=== PATIENT | female | born 1945 | race Caucasian/White ===

== ENCOUNTER 2020-05-19 11:41 | Day surgery (SDC) | payer MEDICARE, SELFPAY ==
[2020-05-12 20:43] VITALS: BMI 27.4
--- NOTE | 2020-05-16 09:45 | P.CONAN_ITS ---
Documented by User: Kristen Schmidt 05/16/20 09:46 HPI - Anesthesia Eval Consult details Narrative: 74yo F for Colonoscopy [facility] Past Medical History Medical History (Updated 05/19/20 @ 08:25 by Bisi Bolanos MD) GERD (gastroesophageal reflux disease) History of breast cancer Hyperlipidemia Plantar fasciitis Family History Family History (Updated 05/14/20 @ 07:43 by Akilah Ramirez, RMA, EMPLOYMENT DIRECTOR) Father No problems noted. Mother No problems noted. Brother Pancreatic cancer Brother No problems noted. Brother No problems noted. Son No problems noted. Daughter No problems noted. Surgical History Surgical History History of lumpectomy of right breast History of tonsillectomy Social History Social History Smoking Status: Never smoker Use of substances other than those prescribed or required for medical reasons: No Advance Directives: Yes Advance Directives Information Provided: Yes (daughter) Advance Directives on File: No (will bring in morning of procedure) Advance Directives Date on File: 09/06/19 Meds Allergies Allergy/AdvReac Type Severity Reaction Status Date / Time No Known Allergies Allergy Verified 05/14/20 07:41 Home Medications Medication Instructions Recorded Confirmed Type Vitamin D (with calcium) 2,000 units PO DAILY 05/12/20 05/12/20 History zolpidem 10 mg PO DAILY 05/12/20 05/12/20 History Exam Exam Date and Time: May 16, 2020 0945 Height,Weight and Vital Signs: Height 5 ft 6 in Weight 77.111 kg Pertinent Lab Results Pertinent Lab Results: Laboratory Tests 02/04/20 02/04/20 08:15 08:15 WBC 7.0 Hgb 15.3 Hct 46.1 Plt Count 307 Sodium 139 Potassium 4.3 Chloride 103 BUN 15 Creatinine 0.82 Assessment and Plan Assessment Anesthesia Assessment: Chart Reviewed Documented by User: Marilyn Garcia 05/19/20 12:52 [facility] Past Medical History Medical History (Updated 05/19/20 @ 08:25 by Bisi Bolanos MD) GERD (gastroesophageal reflux disease) History of breast cancer Hyperlipidemia Plantar fasciitis Family History Family History (Updated 05/14/20 @ 07:43 by Akilah Ramirez, RMA, EMPLOYMENT DIRECTOR) Father No problems noted. Mother No problems noted. Brother Pancreatic cancer Brother No problems noted. Brother No problems noted. Son No problems noted. Daughter No problems noted. Family history of problems with anesthesia: No Surgical History Surgical History History of lumpectomy of right breast History of tonsillectomy History of Problems with Anesthesia: No Social History Social History Smoking Status: Never smoker Use of substances other than those prescribed or required for medical reasons: No Advance Directives: Yes Advance Directives Information Provided: Yes (daughter) Advance Directives on File: No (will bring in morning of procedure) Advance Directives Date on File: 09/06/19 Meds Allergies Allergy/AdvReac Type Severity Reaction Status Date / Time No Known Allergies Allergy Verified 05/14/20 07:41 Home Medications Medication Instructions Recorded Confirmed Type Vitamin D (with calcium) 2,000 units PO DAILY 05/12/20 05/12/20 History zolpidem 10 mg PO DAILY 05/12/20 05/12/20 History Exam Height,Weight and Vital Signs: Vital Signs Temp Pulse Resp BP Pulse Ox 05/19/20 12:25 98.6 F 83 18 135/69 96 Airway Mallampati Class: II TM Dist: >3cm Neck ROM: Full Heart: RRR Lungs: CTAB Assessment and Plan Assessment Anesthesia Assessment: Anesthesia Plan Discussed and Chart Reviewed Final Anesthetic Review NPO: Yes ASA Class: II Final Preanesthetic Review: No Changes in Pt Med Stat, Meds/Allgs Chart Reviewed, Consent Obtained/Reviewed and Anes Risks/Benef Reviewed Patient Risk: Low Procedure Risk: Low Anesthetic Plan Anesthetic Plan: MAC: Disposition: Standard PACU
[2020-05-19 12:25] VITALS: BP 135/69; PULSE 83; RESP 18; TEMP 37; O2SAT 96
[2020-05-19 14:06] VITALS: BP 105/63; PULSE 70; RESP 16; TEMP 37.1; O2SAT 97
[2020-05-19 14:11] VITALS: BP 116/61; PULSE 68; RESP 18; O2SAT 96
--- NOTE | 2020-05-19 14:16 | PM.OP ---
Brief Operative Note Date of procedure: 05/19/20 Pre-op diagnosis: GERD, Screening Post-op diagnosis: other (Hiatal hernia, GERD, R/O Gupta's, Colon polyps, Diverticulosis, Internal hemorrhoids) Procedure: EGD with biopsy, Colonoscopy to cecum and TI with snare polypectomy and biopsy with removal of polyp Surgeon: Vinicio Keane Anesthesia: MAC Estimated blood loss (mL): 3.0 Pathology: other (A. EG Junction at 38cm B. Cecal polyps. C. Polyp at 40cm D. Polyp at 30cm) Condition: stable Disposition: PACU
[2020-05-19 14:27] VITALS: BP 129/69; PULSE 59; RESP 17; O2SAT 100
--- NOTE | 2020-05-19 15:11 | HO.POSTANES ---
Post Anesthesia Evaluation Post Anesthesia Evaluation Vital Signs: Vital Signs Temp Pulse Resp BP Pulse Ox 05/19/20 14:27 98.7 F 59 17 129/69 100 05/19/20 14:11 68 18 116/61 96 05/19/20 14:06 98.7 F 70 16 105/63 97 05/19/20 12:25 98.6 F 83 18 135/69 96 Anesthesia: Monitored Mental Status: Awake Pain Control: Satisfactory Nausea/Vomiting: None Hydration: Adequate Anesthesia-Related Issues: No Anes. Related Issues
--- NOTE | 2020-05-19 15:28 | OP_ITS ---
SURGEON: Vinicio Keane MD INDICATIONS: The patient presents for evaluation of gastroesophageal reflux and colorectal cancer screening. Full consent has been obtained from her for this, including risks of bleeding and perforation. PREOPERATIVE DIAGNOSIS: POSTOPERATIVE DIAGNOSIS: PROCEDURE PERFORMED: Esophagogastroduodenoscopy with biopsies, and colonoscopy to cecum and terminal ileum with snare polypectomy, and biopsy and removal of polyp. ESTIMATED BLOOD LOSS: COMPLICATIONS: ANESTHESIA: Monitored anesthesia care. ASSISTANTS: SPECIMENS: PREOPERATIVE DIAGNOSES: Gastroesophageal reflux and colorectal cancer screening. POSTOPERATIVE DIAGNOSES: Gastroesophageal reflux and colorectal cancer screening, hiatal hernia, rule out Gupta's esophagus, colon polyps, diverticulosis and internal hemorrhoids. DESCRIPTION OF PROCEDURE: The patient was placed in the left lateral decubitus position. The Olympus video gastroscope was passed in the posterior oropharynx and upper esophagus under direct vision. The scope was passed slowly into the distal esophagus. The gastroesophageal junction appeared at 38 cm. This area appears slightly irregular with less than 1 cm areas of possible Gupta's mucosa. There was no esophagitis. There was no ulceration or mass. The scope easily entered into the stomach. There was a small hiatal hernia. The scope was advanced to the pylorus and duodenum cannulated to the descending portion. The duodenum including the bulb appeared normal without mass or ulceration. The scope was withdrawn back in the stomach. The gastric antrum and body appeared normal with good peristalsis. The scope was retroflexed visualizing the proximal stomach carefully which appeared normal, without any sign of mass or ulceration. The scope was straightened and withdrawn back into the esophagus. Biopsies were obtained at the EG junction at 38 cm. Proximal to this, the esophageal mucosa appeared normal. The scope was withdrawn from the patient. She was turned around for colonoscopy. The digital rectal exam revealed no abnormalities. The Olympus video pediatric colonoscope was entered into the rectum and advanced easily to the cecum. Once in the cecum, I did identify cecal pouch with appendiceal orifice and a normal-appearing ileocecal valve. The terminal ileum was cannulated and appeared normal. The scope was withdrawn back in the colon. The entire cecum was well visualized. In the cecum, was an approximately 8 mm grossly adenomatous polyp, which was snared and recovered by suction. The polypectomy site appeared clean, without any sign of residual polyp nor bleeding. Also, in the cecum, was an approximately 3 mm polyp, which was biopsied and completely removed with cold biopsy forceps. The scope was then slowly withdrawn assessing all mucosal surfaces carefully. Preparation was excellent. At 40 cm and at 30 cm, were relatively flat approximately 6 to 8 mm polyps, which were snared and recovered by suction. The polypectomy sites appeared clean, without any sign of residual polyp nor bleeding. I did not visualize any other polyps, colitis, nor angiodysplasia. There was a mild amount of sigmoid diverticulosis. In the rectum, scope was retroflexed visualizing internal hemorrhoids, but no other pathology. The rectal mucosa appeared normal. The scope was straightened out and withdrawn from the patient. She tolerated both procedures well and was returned to recovery area in stable condition. IMPRESSION: 1. Hiatal hernia, gastroesophageal reflux, rule out Gupta's esophagus. 2. Colon polyps, status post snare polypectomy, and biopsy and removal. 3. Diverticulosis. 4. Internal hemorrhoids. PLAN: The results of the pathology will be checked. If the colon polyp is a tubular adenoma, I would recommend a followup colonoscopy in 5 years. If they are all happen to be hyperplastic, then she would not need any further screening colonoscopy. She was advised not to use any aspirin and NSAIDs for 1 week. In regard to the upper GI findings if there is evidence of Gupta's esophagus without dysplasia, we could recommend a repeat upper endoscopy in 3 years for further surveillance. Given her ongoing symptoms and the endoscopic findings, I shall give her a prescription for omeprazole 20 mg daily to use each morning. I did advise that she could use Pepcid or other [id number] antacid as needed as well. She was advised to see me in several months for followup visit as well. This has been discussed with her family. MD LAXMI Flores/CARLOS / [id number]
== END 2020-05-19 23:59 | disposition home or self-care (01) ==
PROVIDERS: PCP Internal Medicine; Visit Provider Internal Medicine
PROC: (CPT 45385; principal; 2020-05-19 13:00)
DX: Z12.11 Encounter for screening for malignant neoplasm of colon (principal); D12.0 Benign neoplasm of cecum; D12.5 Benign neoplasm of sigmoid colon; K57.30 Diverticulosis of large intestine without perforation or abscess without bleeding; K64.8 Other hemorrhoids; K21.9 Gastro-esophageal reflux disease without esophagitis; K44.9 Diaphragmatic hernia without obstruction or gangrene; E78.5 Hyperlipidemia, unspecified; Z79.899 Other long term (current) drug therapy; Z85.3 Personal history of malignant neoplasm of breast; Z92.21 Personal history of antineoplastic chemotherapy; Z92.3 Personal history of irradiation
CPT/HCPCS: 45385; 45380; 43239; 88305

== ENCOUNTER 2020-06-02 08:00 | Outpatient (REF) | payer MEDICARE, SELFPAY ==
[2020-06-02 12:10] LABS: Cholesterol 238 mg/dL; HDL Cholesterol 65 mg/dL; LDL Cholesterol Calculated 149 mg/dl; Triglycerides 120 mg/dL
== END 2020-06-02 08:01 | disposition home or self-care (01) ==
LOC: HO.HMGCLDS 08:00
PROVIDERS: PCP Internal Medicine; Visit Provider Internal Medicine
DX: E78.5 Hyperlipidemia, unspecified (principal)
CPT/HCPCS: 80061

== ENCOUNTER 2020-06-17 10:55 | Outpatient (REF) | payer MEDICARE, SELFPAY ==
--- NOTE | 2020-06-17 10:58 | MM_ITS ---
EXAMINATION: BONE DENSITOMETRY CLINICAL INDICATION: Asymptomatic menopausal state. COMPARISON: Baseline BD dated 01/25/2017. TECHNIQUE: Using a [employer] DXA System (software version: 13.1) manufactured by [employer], dual-energy x-ray absorptiometry was performed of the lumbar spine and left hip. The images are of good technical quality. Summary results are attached. FINDINGS: AP SPINE L1-L4: Current: BMD 1.049 g/cm2, Z-score 0.2, T-score -1.1, osteopenia, 3.0% increase from baseline (<5% change is not significant). Baseline: BMD 1.018 g/cm2. LEFT FEMUR, NECK: Current: BMD 0.744 g/cm2, Z-score -0.6, T-score -2.1, osteopenia. Baseline: BMD 0.801 g/cm2. LEFT FEMUR, TOTAL: Current: BMD 0.743 g/cm2, Z-score -0.8, T-score -2.1, osteopenia, 6.7% decrease from baseline (<5% change is not significant). Baseline: BMD 0.796 g/cm2. IDENTIFIED RISK FACTORS: Menopause. HISTORY OF FRACTURE: None listed. MEDICATIONS: Vitamin D. MM/XR DEXA axial skeleton IMPRESSION: 1. DIAGNOSIS: Osteopenia based on the lowest T-score value of -2.1 in the femoral neck and total femur applying World Health Organization criteria. 2. 10-YEAR FRACTURE RISK PREDICTION, FRAX: Major osteoporotic fracture (clinical spine, forearm, hip or shoulder) 13.3%. Hip fracture 3.2%. 3. Treatment Recommendations: NOF guidelines recommend consideration for treatment in postmenopausal women and men age 50 and older presenting with the following: -A hip or vertebral (clinical or morphometric) fracture. -T-score less than or equal to -2.5 at the femoral neck or spine after appropriate evaluation to exclude secondary causes. -Low bone mass at the hip or spine and a 10-year fracture probability by FRAX of greater than or equal to 3% for hip fracture or greater than or equal to 20% for major osteoporotic fracture based on the [place] adapted WHO algorithm. 4. Other Recommendations: All treatment decisions require clinical judgment and consideration of individual patient factors, including patient preferences, comorbidities, previous drug use, risk factors not captured in the FRAX model (e.g. frailty, falls, vitamin D deficiency, increased bone turnover, interval significant decline in bone density) and possible under or overestimation of fracture risk by FRAX. Additional medical evaluation for secondary cause of low bone mineral density may be appropriate. FUTURE SCAN RECOMMENDATION: People with diagnosed cases of osteoporosis or at high risk for fracture should have regular bone mineral density tests. For patients eligible for Medicare, routine testing is allowed once every 2 years. The testing frequency can be increased to one year for patients who have rapidly progressing disease, those who are receiving or discontinuing medical therapy to restore bone mass, or have additional risk factors.
== END 2020-06-17 10:56 | disposition home or self-care (01) ==
LOC: HO.MAMMO 10:55
PROVIDERS: Visit Provider Internal Medicine
DX: Z13.820 Encounter for screening for osteoporosis (principal); Z78.0 Asymptomatic menopausal state
CPT/HCPCS: 77080

== ENCOUNTER 2020-08-15 10:40 | Outpatient (REF) | payer MEDICARE, SELFPAY | END 2020-08-15 10:41 | disposition home or self-care (01) | LOC: HO.LAB 10:40 | PROVIDERS: Visit Provider Nurse Practitioner Family | DX: R52 Pain, unspecified (principal); Z20.822 Contact with and (suspected) exposure to COVID-19 | CPT/HCPCS: 36415; U0003 ==

== ENCOUNTER 2020-08-18 12:22 | Outpatient (REF) | payer MEDICARE, SELFPAY ==
[2020-08-18 13:49] LABS: Hematocrit 41.9 % (37-47); Hemoglobin 13.6 g/dl (12.0-16.0); Mean Corpuscular HGB Conc 32.5 g/dl (31.0-35.0); Mean Corpuscular Hemoglobin 28.9 pg (27.0-33.0); Mean Platelet Volume 9.9 fL (9.4-12.3); Platelet Count 438 X10*3/uL (160-400); Red Blood Count 4.71 X10*6/uL (4.20-5.50); Red Cell Distribution Width 11.2 % (11.0-16.0); White Blood Count 12.8 X10*3/uL (4.8-10.8)
[2020-08-18 14:14] LABS: Alanine Aminotransferase 28 U/L (0-31); Alkaline Phosphatase 72 U/L (39-117); Anion Gap 15 (12-20); Aspartate Amino Transferase 17 U/L (5-31); Bilirubin Total 0.6 mg/dL (0.0-1.0); Blood Urea Nitrogen 14 mg/dL (9-16); C Reactive Protein 6.16 mg/dL (< or = 0.50); Carbon Dioxide 26 mmol/L (22-29); Chloride 100 mmol/L (96-108); Estimated Glomerular Filt Rate > 60; Glucose Fasting 103 mg/dL (60-99); Potassium 4.4 mmol/L (3.3-5.1); Sodium 137 mmol/L (135-145)
[2020-08-18 14:36] LABS: TSH reflex Free T4 1.46 uIU/mL (0.32-4.0)
[2020-08-18 15:08] LABS: Erythrocyte Sedimentation Rate 44 MM/HR (0-20)
[2020-08-20 08:48] LABS: Lyme Abs Screen <0.90 index
== END 2020-08-18 12:23 | disposition home or self-care (01) ==
LOC: HO.HMGCLDS 12:22
PROVIDERS: PCP Internal Medicine; Visit Provider Internal Medicine
DX: M79.10 Myalgia, unspecified site (principal); R52 Pain, unspecified
CPT/HCPCS: 36415; 80053; 82550; 84443; 85027; 85652; 86140; 86618

== ENCOUNTER 2020-09-05 12:58 | Outpatient (REF) | payer MEDICARE, SELFPAY ==
[2020-09-05 14:44] LABS: C Reactive Protein 0.14 mg/dL (< or = 0.50); Rheumatoid Factor < 15.0 IU/mL (<15.0)
[2020-09-05 15:08] LABS: Erythrocyte Sedimentation Rate 2 MM/HR (0-20)
[2020-09-08 21:47] LABS: Cyclic Citrullinated Peptide <16 UNITS
[2020-09-09 12:41] LABS: Prot Elec - Albumin 4.1 g/dL (3.8-4.8); Prot Elec - Alpha1 0.3 g/dL (0.2-0.3); Prot Elec - Alpha2 0.8 g/dL (0.5-0.9); Prot Elec - Beta 1 0.5 g/dL (0.4-0.6); Prot Elec - Beta 2 0.4 g/dL (0.2-0.5); Prot Elec - Gamma 1.1 g/dL (0.8-1.7); Prot Elec - Total Protein 7.2 g/dL (6.1-8.1)
[2020-09-09 13:08] LABS: Aldolase 5.6 U/L (<=8.1)
[2020-09-11 15:01] LABS: IgA 258 mg/dL (70-320); IgG 1198 mg/dL (600-1540); IgM 164 mg/dL (50-300)
== END 2020-09-05 12:59 | disposition home or self-care (01) ==
LOC: HO.LAB 12:58
PROVIDERS: PCP Internal Medicine; Visit Provider Student in an Organized Health Care Education/Training Program
DX: M35.3 Polymyalgia rheumatica (principal); M85.80 Other specified disorders of bone density and structure, unspecified site; Z79.52 Long term (current) use of systemic steroids
CPT/HCPCS: 36415; 82085; 82550; 82784; 84155; 84165; 85652; 86140; 86200; 86334; 86431; 99202

== ENCOUNTER 2020-09-14 16:25 | Emergency (ER) | payer MEDICARE, SELFPAY ==
--- NOTE | ~2020-09-14 | XR_ITS ---
EXAMINATION: CHEST 1 VIEW CLINICAL INFORMATION: Shortness of breath. COMPARISON: January 10, 2017. TECHNIQUE: An AP view of the chest is provided. FINDINGS: The cardiac silhouette is not enlarged. The mediastinal and hilar contours are unremarkable. There are neither pleural effusions nor pneumothoraces. There are no consolidations. The osseous structures are stable. Surgical donald are again noted bilaterally. XR/XR chest 1V IMPRESSION: No evidence for acute disease.
[2020-09-14 16:41] VITALS: BP 151/90; PULSE 69; RESP 18; TEMP 36.9; O2SAT 99; BMI 28.2
--- NOTE | 2020-09-14 16:55 | ED.SOB ---
HPI - SOB/Dyspnea General Chief Complaint: Dyspnea Stated Complaint: SOB Time Seen by Provider: 09/14/20 16:54 Source: patient Mode of arrival: ambulatory Limitations: no limitations History of Present Illness HPI Narrative: Patient on prednisone for polymyalgia rheumatica for last 2 weeks on 40 mg daily feel anxious and for last 4 days been feeling short of breath patient on exertion feel chest tight no diaphoresis no nausea no vomiting no leg swelling no cough no fever no chills MD elicited complaint: shortness of breath Onset (ago): day(s) (4) Timing: constant Severity: mild Exacerbating factors: nothing and exertion Relieving factors: rest Associated symptoms: denies other symptoms Treatment prior to arrival: none Related Data Home Medications Medication Instructions Recorded Confirmed flu vacc [id number](65yr up)-PF 240 ml IM 06/04/20 09/05/20 mcg/0.7 mL intramuscular syringe omeprazole 20 mg capsule,delayed 20 mg PO DAILY 06/04/20 09/05/20 release omega-3 fatty acids PO 08/18/20 09/05/20 cholecalciferol (vitamin D3) 50 50 mcg PO DAILY 09/05/20 09/05/20 mcg (2,000 unit) capsule Previous Rx's Medication Instructions Recorded alendronate 70 mg tablet 70 mg PO QWEEK #12 tab 09/05/20 prednisone 20 mg tablet 40 mg PO DAILY #60 tab 09/05/20 zolpidem 10 mg tablet 10 mg PO DAILY #30 tab 09/05/20 Allergies Allergy/AdvReac Type Severity Reaction Status Date / Time No Known Allergies Allergy Verified 09/14/20 16:46 Review of Systems Review of Systems: Constitutional : No Weight loss, No Fever, No Chills ENT/Mouth : No sore throat, No Rhinorrhea Eyes: No Eye Pain, No Swelling Cardiovascular : No Chest Pain, no palpitations Respiratory : No Cough, No Sputum, ++ shortness of breath Gastrointestinal : no Nausea, No Vomiting, No Diarrhea, No abdominal Pain, no black stools Genitourinary : No Dysuria, No Urinary Frequency Musculoskeletal : No joint pain, No Myalgias, No Joint Swelling Skin : No Skin Lesions, No rash Neuro : No Weakness, No Numbness, No Dizziness, No Headache Psych : No Anxiety/Panic, No Depression Heme/Lymph: No Bruising, No Lymphadenopathy Endocrine : No Polyuria, No Polydipsia All other systems reviewed and are negative [facility] Past Medical History Medical History Abnormal colonoscopy GERD (gastroesophageal reflux disease) History of breast cancer Hyperlipidemia Myalgia Plantar fasciitis Postmenopausal Surgical History History of lumpectomy of right breast History of tonsillectomy Family History Family History Father No problems noted. Mother No problems noted. Brother Pancreatic cancer Brother No problems noted. Brother No problems noted. Son No problems noted. Daughter No problems noted. Social History Social History Alcohol intake: current Alcohol intake frequency: a few times a month Smoking Status: Never smoker Advance Directives: Yes Advance Directives on File: Yes Advance Directives Date on File: 09/06/19 Physical Exam Vital Signs: Vital Signs: Last Vital Signs Temp 98.5 F 09/14/20 16:41 Pulse 57 09/14/20 18:32 Resp 20 09/14/20 18:32 BP 154/84 H 09/14/20 18:32 Pulse Ox 99 09/14/20 18:32 Body Mass Index 28.2 Appearance: Alert. Oriented X3. No acute distress. Anxious Eyes: Pupils equal, round and reactive to light. ENT: Pharynx normal. Neck: Normal inspection. Neck supple. CVS: Normal heart rate and rhythm. Pulses normal. Respiratory: No respiratory distress. Breath sounds normal. Abdomen: Soft and nontender. Bowel sounds are present, no mass palpable, no CVA tenderness Skin: Skin warm and dry. Normal skin color. Normal skin turgor. Extremities: No lower extremity edema. No calf tenderness Neuro: Oriented X 3. No motor deficit. No sensory deficit. MDM - SOB/Dyspnea MDM Narrative Medical decision making narrative: Patient's subjective shortness of breath without any objective findings lungs are clear CT chest was also negative cardiac enzymes negative BNP normal D-dimer also negative, symptoms likely from from anxiety secondary to use of prednisone will discharge patient home at this time advised to follow with PCP Differential Diagnosis Differential diagnosis: Likely congestive heart failure, pneumonia and anemia Medical Records Attestation: I reviewed the patient's medical records. Lab Data Attestation: I reviewed the patient's lab results. Result diagrams: 09/14/20 17:22 09/14/20 17:22 Labs: Lab Results 09/14/20 09/14/20 09/14/20 Range/Units 17:22 17:22 17:22 WBC 10.1 (4.8-10.8) X10*3/uL RBC 4.88 (4.20-5.50) X10*6/uL Hgb 14.0 (12.0-16.0) g/dl Hct 42.8 (37-47) % MCV 87.7 (80-98) fL MCH 28.7 (27.0-33.0) pg MCHC 32.7 (31.0-35.0) g/dl RDW 12.5 (11.0-16.0) % Plt Count 223 D (160-400) X10*3/uL MPV 10.4 (9.4-12.3) fL Immature Gran % (Auto) 1.1 H (0.0-0.4) % Neut % (Auto) 79.8 H (45-73) % Lymph % (Auto) 13.1 L (20-40) % [place] % (Auto) 5.8 (2-11) % Eos % (Auto) 0.0 (0-4) % Baso % (Auto) 0.2 (0-2) % Lymph # (Auto) 1.3 (1.2-4.9) X10*3/uL [place] # (Auto) 0.6 (0.1-1.2) X10*3/uL Eos # (Auto) 0.0 (0.0-0.4) X10*3/uL Baso # (Auto) 0.0 (0.0-0.2) X10*3/uL Abs Immat Gran (auto) 0.11 H (0.00-0.03) X10*3/uL Absolute Neuts (auto) 8.0 (2.0-8.3) X10*3/uL Absolute Nucleated RBC 0.000 (0.0-0.012) X10*3/uL Nucleated RBC % (auto) 0.0 (0.0-0.2) /100WBC PT (10.8-13.0) SEC INR (0.9-1.1) D-Dimer NG/ML Sodium 136 (135-145) mmol/L Potassium 4.3 (3.3-5.1) mmol/L Chloride 103 (96-108) mmol/L Carbon Dioxide 22 (22-29) mmol/L Anion Gap 15 (12-20) BUN 16 (9-16) mg/dL Creatinine 0.76 (0.5-1.4) mg/dL Estim Creat Clear Calc 70.0 Estimated GFR > 60 Random Glucose 114 (60-115) mg/dL Calcium 8.7 (8.4-10.2) mg/dL Total Bilirubin 0.6 (0.0-1.0) mg/dL Direct Bilirubin 0.2 (0.0-0.5) mg/dL AST 16 (5-31) U/L ALT 22 (0-31) U/L Alkaline Phosphatase 51 D (39-117) U/L Troponin I High Sens < 3.5 (<3.5-17.0) ng/L B-Natriuretic Peptide (<100) pg/mL Total Protein 6.7 (6.5-8.0) g/dL Albumin 4.0 (3.5-5.0) g/dL Urine Color Urine Appearance Urine pH (5.0-8.0) Ur Specific [place] (1.005-1.025) Urine Protein (NEG-TRACE) MG/DL Urine Glucose (UA) (NEG) MG/DL Urine Ketones (NEG) MG/DL Urine Blood (NEG) Urine Nitrite (NEG) Ur Leukocyte Esterase (NEG) COVID-19 (ELIU) (Negative) COVID-19 Clin Com 09/14/20 09/14/20 09/14/20 Range/Units 17:22 17:22 17:29 WBC (4.8-10.8) X10*3/uL RBC (4.20-5.50) X10*6/uL Hgb (12.0-16.0) g/dl Hct (37-47) % MCV (80-98) fL MCH (27.0-33.0) pg MCHC (31.0-35.0) g/dl RDW (11.0-16.0) % Plt Count (160-400) X10*3/uL MPV (9.4-12.3) fL Immature Gran % (Auto) (0.0-0.4) % Neut % (Auto) (45-73) % Lymph % (Auto) (20-40) % [place] % (Auto) (2-11) % Eos % (Auto) (0-4) % Baso % (Auto) (0-2) % Lymph # (Auto) (1.2-4.9) X10*3/uL [place] # (Auto) (0.1-1.2) X10*3/uL Eos # (Auto) (0.0-0.4) X10*3/uL Baso # (Auto) (0.0-0.2) X10*3/uL Abs Immat Gran (auto) (0.00-0.03) X10*3/uL Absolute Neuts (auto) (2.0-8.3) X10*3/uL Absolute Nucleated RBC (0.0-0.012) X10*3/uL Nucleated RBC % (auto) (0.0-0.2) /100WBC PT (10.8-13.0) SEC INR (0.9-1.1) D-Dimer NG/ML Sodium (135-145) mmol/L Potassium (3.3-5.1) mmol/L Chloride (96-108) mmol/L Carbon Dioxide (22-29) mmol/L Anion Gap (12-20) BUN (9-16) mg/dL Creatinine (0.5-1.4) mg/dL Estim Creat Clear Calc Estimated GFR Random Glucose (60-115) mg/dL Calcium (8.4-10.2) mg/dL Total Bilirubin (0.0-1.0) mg/dL Direct Bilirubin (0.0-0.5) mg/dL AST (5-31) U/L ALT (0-31) U/L Alkaline Phosphatase (39-117) U/L Troponin I High Sens (<3.5-17.0) ng/L B-Natriuretic Peptide 46 (<100) pg/mL Total Protein (6.5-8.0) g/dL Albumin (3.5-5.0) g/dL Urine Color STRAW Urine Appearance CLEAR Urine pH 7.0 (5.0-8.0) Ur Specific [place] <= 1.005 (1.005-1.025) Urine Protein NEG (NEG-TRACE) MG/DL Urine Glucose (UA) NEG (NEG) MG/DL Urine Ketones NEG (NEG) MG/DL Urine Blood NEG (NEG) Urine Nitrite NEG (NEG) Ur Leukocyte Esterase NEG (NEG) COVID-19 (ELIU) Negative (Negative) COVID-19 Clin Com See Note 09/14/20 Range/Units 19:43 WBC (4.8-10.8) X10*3/uL RBC (4.20-5.50) X10*6/uL Hgb (12.0-16.0) g/dl Hct (37-47) % MCV (80-98) fL MCH (27.0-33.0) pg MCHC (31.0-35.0) g/dl RDW (11.0-16.0) % Plt Count (160-400) X10*3/uL MPV (9.4-12.3) fL Immature Gran % (Auto) (0.0-0.4) % Neut % (Auto) (45-73) % Lymph % (Auto) (20-40) % [place] % (Auto) (2-11) % Eos % (Auto) (0-4) % Baso % (Auto) (0-2) % Lymph # (Auto) (1.2-4.9) X10*3/uL [place] # (Auto) (0.1-1.2) X10*3/uL Eos # (Auto) (0.0-0.4) X10*3/uL Baso # (Auto) (0.0-0.2) X10*3/uL Abs Immat Gran (auto) (0.00-0.03) X10*3/uL Absolute Neuts (auto) (2.0-8.3) X10*3/uL Absolute Nucleated RBC (0.0-0.012) X10*3/uL Nucleated RBC % (auto) (0.0-0.2) /100WBC PT 12.8 (10.8-13.0) SEC INR 1.1 (0.9-1.1) D-Dimer < 200 NG/ML Sodium (135-145) mmol/L Potassium (3.3-5.1) mmol/L Chloride (96-108) mmol/L Carbon Dioxide (22-29) mmol/L Anion Gap (12-20) BUN (9-16) mg/dL Creatinine (0.5-1.4) mg/dL Estim Creat Clear Calc Estimated GFR Random Glucose (60-115) mg/dL Calcium (8.4-10.2) mg/dL Total Bilirubin (0.0-1.0) mg/dL Direct Bilirubin (0.0-0.5) mg/dL AST (5-31) U/L ALT (0-31) U/L Alkaline Phosphatase (39-117) U/L Troponin I High Sens (<3.5-17.0) ng/L B-Natriuretic Peptide (<100) pg/mL Total Protein (6.5-8.0) g/dL Albumin (3.5-5.0) g/dL Urine Color Urine Appearance Urine pH (5.0-8.0) Ur Specific [place] (1.005-1.025) Urine Protein (NEG-TRACE) MG/DL Urine Glucose (UA) (NEG) MG/DL Urine Ketones (NEG) MG/DL Urine Blood (NEG) Urine Nitrite (NEG) Ur Leukocyte Esterase (NEG) COVID-19 (ELIU) (Negative) COVID-19 Clin Com ECG Data Attestation: I personally reviewed and interpreted this ECG as follows: Interpretation: Heart rate 69 beats per minute no acute STT wave changes normal axis normal intervals impression normal EKG Discharge Plan Discharge Clinical Impression: Anxiety, Mild shortness of breath Patient Disposition: Home, Self-Care Instructions: Anxiety (ED), Shortness of Breath (ED) Additional Instructions: Your lab results are normal at this time her shortness of breath is likely from anxiety. Chest x-ray is negative COVID-19 is negative Follow-up with PCP if not better Prescriptions: No Action zolpidem 10 mg tablet 10 mg PO DAILY Qty: 30 RF: 0 omeprazole 20 mg capsule,delayed release(DR/EC) 20 mg PO DAILY RF: 0 Fluzone HighDose Quad 20-21 PF 240 mcg/0.7 mL syringe IM RF: 0 omega-3 fatty acids PO RF: 0 cholecalciferol (vitamin D3) 50 mcg (2,000 unit) capsule 50 mcg PO DAILY RF: 0 prednisone 20 mg tablet 40 mg PO DAILY Qty: 60 RF: 1 alendronate 70 mg tablet 70 mg PO QWEEK Qty: 12 RF: 1 Interventions: ED Discharge Assessment Last Done: 09/14/20 20:25 Discharge Date/Time: 09/14/20 20:26
[2020-09-14 17:03] VITALS: RESP 18
--- NOTE | 2020-09-14 17:07 | ECG_ITS ---
Test Reason : DYSPNEA Blood Pressure : / mmHG Vent. Rate : 069 BPM Atrial Rate : 069 BPM P-R Int : 176 ms QRS Dur : 080 ms QT Int : 374 ms P-R-T Axes : 062 022 050 degrees QTc Int : 400 ms Normal sinus rhythm Normal ECG No previous ECGs available Referred By: Ezra Ramirez Electronically Signed By:ANGÉLICA ROCK
[2020-09-14 17:36] LABS: MANUAL DIFF FLAG NO
[2020-09-14 17:37] LABS: Basophils Percent Auto 0.2 % (0-2); Hematocrit 42.8 % (37-47); Imm Gran Abs Auto 0.11 X10*3/uL (0.00-0.03); Imm Gran Pct Auto 1.1 % (0.0-0.4); Lymphocytes Absolute Auto 1.3 X10*3/uL (1.2-4.9); Lymphocytes Percent Auto 13.1 % (20-40); Mean Corpuscular HGB Conc 32.7 g/dl (31.0-35.0); Mean Corpuscular Hemoglobin 28.7 pg (27.0-33.0); Mean Corpuscular Volume 87.7 fL (80-98); Mean Platelet Volume 10.4 fL (9.4-12.3); Monocytes Absolute Auto 0.6 X10*3/uL (0.1-1.2); Monocytes Percent Auto 5.8 % (2-11); Neutrophils Percent Auto 79.8 % (45-73); Platelet Count 223 X10*3/uL (160-400); Red Blood Count 4.88 X10*6/uL (4.20-5.50); Red Cell Distribution Width 12.5 % (11.0-16.0); White Blood Count 10.1 X10*3/uL (4.8-10.8)
[2020-09-14 17:39] LABS: Appearance Urine CLEAR; Color Urine STRAW; Glucose Urine UA NEG (NEG); Leukocyte Esterase Urine NEG (NEG); Nitrite Urine NEG (NEG); Specific Gravity - Urine <= 1.005 (1.005-1.025); Urine Blood NEG (NEG); Urine Ketones NEG (NEG); Urine Protein NEG (NEG-TRACE)
[2020-09-14 17:53] LABS: COVID-19 Test Negative (Negative); IDNOW Serial# 9DD0AD1C
[2020-09-14 18:01] LABS: Alanine Aminotransferase 22 U/L (0-31); Alkaline Phosphatase 51 U/L (39-117); Anion Gap 15 (12-20); Aspartate Amino Transferase 16 U/L (5-31); Bilirubin Direct 0.2 mg/dL (0.0-0.5); Bilirubin Total 0.6 mg/dL (0.0-1.0); Blood Urea Nitrogen 16 mg/dL (9-16); Calcium 8.7 mg/dL (8.4-10.2); Carbon Dioxide 22 mmol/L (22-29); Chloride 103 mmol/L (96-108); Estimated Glomerular Filt Rate > 60; Glucose Random 114 mg/dL (60-115); Potassium 4.3 mmol/L (3.3-5.1); Sodium 136 mmol/L (135-145); Total Protein 6.7 g/dL (6.5-8.0)
[2020-09-14 18:04] LABS: B Type Natriuretic Peptide 46 pg/mL (<100); Troponin-I High Sensitivity < 3.5 ng/L (<3.5-17.0)
[2020-09-14 18:32] VITALS: BP 154/84; PULSE 57; RESP 20; O2SAT 99
[2020-09-14 19:58] LABS: INTERNATIONAL NORM RATIO 1.1 (0.9-1.1); Prothrombin Time 12.8 SEC (10.8-13.0)
[2020-09-14 20:10] LABS: D Dimer < 200 NG/ML
== END 2020-09-14 20:26 | disposition home or self-care (01) ==
PROVIDERS: Emergency Provider Internal Medicine
DX: R06.00 Dyspnea, unspecified (principal); F41.1 Generalized anxiety disorder; F43.0 Acute stress reaction; Z20.822 Contact with and (suspected) exposure to COVID-19
CPT/HCPCS: 36415; 71045; 80048; 80076; 81003; 83880; 84484; 85025; 85379; 85610; 87635; 93005; 99284

== ENCOUNTER → 2020-09-19 09:10 | Outpatient (BNVA) | payer MEDICARE, SELFPAY | PROVIDERS: Visit Provider Student in an Organized Health Care Education/Training Program | DX: M35.3 Polymyalgia rheumatica (principal); M85.80 Other specified disorders of bone density and structure, unspecified site; R06.00 Dyspnea, unspecified | CPT/HCPCS: 99212 ==

== ENCOUNTER → 2020-10-08 10:33 | Outpatient (BNVA) | payer MEDICARE, SELFPAY | PROVIDERS: PCP Internal Medicine; Visit Provider Internal Medicine | DX: R06.00 Dyspnea, unspecified (principal); M35.3 Polymyalgia rheumatica; Z79.899 Other long term (current) drug therapy | CPT/HCPCS: 99202; 99212 ==

== ENCOUNTER 2020-10-10 10:46 | Outpatient (REF) | payer MEDICARE, SELFPAY ==
[2020-10-10 14:43] LABS: Cholesterol 217 mg/dL; HDL Cholesterol 84 mg/dL; LDL Cholesterol Calculated 110 mg/dl; Triglycerides 119 mg/dL
[2020-10-10 14:50] LABS: Erythrocyte Sedimentation Rate 5 MM/HR (0-20)
== END 2020-10-10 10:47 | disposition home or self-care (01) ==
LOC: HO.HMGCLDS 10:46
PROVIDERS: PCP Internal Medicine; Visit Provider Student in an Organized Health Care Education/Training Program
DX: M35.3 Polymyalgia rheumatica (principal); E78.5 Hyperlipidemia, unspecified
CPT/HCPCS: 36415; 80061; 85652; 86140

== ENCOUNTER 2020-10-17 09:50 | Outpatient (REF) | payer MEDICARE, SELFPAY ==
--- NOTE | 2020-10-17 17:24 | PFT_ITS ---
FLOWS: FEV1 of 108% of predicted at 2.57 L. FVC 104% of predicted at 3.26 L. FEV1 to FVC ratio of 0.79. No bronchodilator response. LUNG VOLUMES: Total lung capacity 107% of predicted at 5.75 L. Residual volume 101% of predicted at 2.39 L. Slow vital capacity 112% of predicted at 3.37 L. Expiratory reserve volume 18% of predicted at 0.14 L. Diffusion capacity is mildly decreased. IMPRESSION: No obstructive or restrictive ventilatory defect. No bronchodilator response. Decreased expiratory reserve volume suggests extrathoracic restriction likely secondary to abdominal obesity. Isolated defect in diffusion capacity suggests underlying pulmonary parenchymal or vascular disease. Clinical correlation is advised. Preston Caldwell MD AP/MODL / [phone]
== END 2020-10-17 09:51 | disposition home or self-care (01) ==
LOC: HO.RESP 09:50
PROVIDERS: PCP Internal Medicine; Visit Provider Internal Medicine
DX: R06.00 Dyspnea, unspecified (principal); M35.3 Polymyalgia rheumatica
CPT/HCPCS: 94060; 94727; 94729

== ENCOUNTER 2020-10-24 08:18 | Outpatient (REF) | payer MEDICARE, SELFPAY ==
--- NOTE | ~2020-10-24 | XR_ITS ---
EXAMINATION: XR SHOULDER, LEFT CLINICAL INFORMATION: Polymyalgia rheumatica COMPARISON: None TECHNIQUE: AP external rotation, Grashey, scapular Y, and axillary views of the left shoulder. FINDINGS: Bone alignment is normal. No fracture or dislocation is seen. The glenohumeral joint is normal. There is arthritis at the acromioclavicular joint. Soft tissues are normal. XR/XR shoulder LT min 2V IMPRESSION: Arthritis at the acromioclavicular joint.
== END 2020-10-24 08:19 | disposition home or self-care (01) ==
LOC: HO.XRAY 08:18
PROVIDERS: PCP Internal Medicine; Visit Provider Student in an Organized Health Care Education/Training Program
DX: M35.3 Polymyalgia rheumatica (principal); M85.80 Other specified disorders of bone density and structure, unspecified site; R73.9 Hyperglycemia, unspecified; E78.5 Hyperlipidemia, unspecified; Z79.52 Long term (current) use of systemic steroids; Z79.899 Other long term (current) drug therapy
CPT/HCPCS: 73030; 99212

== ENCOUNTER 2020-12-03 08:38 | Outpatient (REF) | payer MEDICARE, SELFPAY ==
[2020-12-03 12:07] LABS: Estimated Average Glucose 114 mg/dL; Hemoglobin A1c % 5.6 %
[2020-12-03 12:21] LABS: Erythrocyte Sedimentation Rate 4 MM/HR (0-20)
[2020-12-03 12:23] LABS: Vitamin D 25-OH Total 43.5 ng/mL (>30)
[2020-12-03 12:31] LABS: Alanine Aminotransferase 13 U/L (0-31); Albumin Level 3.9 g/dL (3.5-5.0); Alkaline Phosphatase 47 U/L (39-117); Anion Gap 14 (12-20); Aspartate Amino Transferase 13 U/L (5-31); Bilirubin Total 0.5 mg/dL (0.0-1.0); Blood Urea Nitrogen 14 mg/dL (9-16); C Reactive Protein 0.77 mg/dL (< or = 0.50); Carbon Dioxide 26 mmol/L (22-29); Chloride 104 mmol/L (96-108); Cholesterol 218 mg/dL; Estimated Glomerular Filt Rate > 60; Glucose Fasting 79 mg/dL (60-99); HDL Cholesterol 75 mg/dL; LDL Cholesterol Calculated 123 mg/dl; Potassium 4.5 mmol/L (3.3-5.1); Sodium 139 mmol/L (135-145); Total Protein 6.3 g/dL (6.5-8.0); Triglycerides 104 mg/dL
== END 2020-12-03 08:39 | disposition home or self-care (01) ==
LOC: HO.HMGCLDS 08:38
PROVIDERS: PCP Internal Medicine; Visit Provider Student in an Organized Health Care Education/Training Program
DX: M35.3 Polymyalgia rheumatica (principal); M85.80 Other specified disorders of bone density and structure, unspecified site; E78.5 Hyperlipidemia, unspecified; R73.9 Hyperglycemia, unspecified
CPT/HCPCS: 36415; 80053; 80061; 82306; 83036; 85652; 86140

== ENCOUNTER → 2020-12-25 15:07 | Outpatient (BNVA) | payer MEDICARE, SELFPAY | PROVIDERS: PCP Internal Medicine; Visit Provider Student in an Organized Health Care Education/Training Program | DX: M35.3 Polymyalgia rheumatica (principal); M85.80 Other specified disorders of bone density and structure, unspecified site | CPT/HCPCS: 99212 ==

== ENCOUNTER → 2021-01-14 07:51 | Outpatient (REF) | payer MEDICARE, SELFPAY ==
--- NOTE | ~2021-01-14 | NM_ITS ---
Exercise Myocardial perfusion study Indication: Chest pain to evaluate for myocardial ischemia Technique: The patient was brought in for an exercise perfusion study on 01/14/2021. Patient performed exercise as per Delmar protocol and was injected 30 mCi of sestamibi was given intravenously one target HR was achieved. Images were obtained using the SPECT gamma camera interlaced with the gating device. Images were obtained in supine position. Resting perfusion study was performed on 01/16/2021. Patient was administered 30 mCi of sestamibi intravenously at rest. Images were then obtained in supine position. Images obtained with and without CT attenuation. Total DLP 88 mGy-cm. Images were processed with the software and compared side to side in short axis, horizontal long axis and vertical long axis views. Findings: The stress perfusion study showed nonattenuated images show minimally reduced uptake and anterior wall of the LV myocardium. Remainder of the LV myocardium is normally perfused. Attenuation corrected images show normal uptake of radiotracer in all segments of LV myocardium.. The gated study shows normal LV systolic function with calculated LVEF of 67%. LV cavity is normal in size. The gated study shows normal systolic wall thickening and contraction of all segments. There is no transient ischemic dilation. Resting study shows no change in perfusion pattern compared to stress perfusion study. Gating at rest reveals normal systolic wall motion with ejection fraction at 73%. The findings are consistent with normal myocardial perfusion. NM/NM cardiolite stress test Impression: 1. Normal myocardial perfusion 2. Gated LVEF is 67 3. Transient ischemic dilatation not present Stress EKG is negative for ischemia
--- NOTE | 2021-01-14 08:00 | CA_ITS ---
Acquisition Time: 2021-01-14 08:01:06 Total Exercise Time: 00:06:00 Test Indications: Chest Pain Medications: OMEPRAZOLE PREDNISONE ALENNDRONATE Protocol: NEELA Max HR: 142 BPM 96% of Pred: 147 BPM Max BP: 178/078 mmHG Max Work Load: 7.0 METS Exercise stress test with exercise 6 min of Neela protocol, with mild sob, no chest discomfort, with isolated PACs during test and 3 isolated PVCs immediately in recovery, with normotensive response to exercise, without EKG changes meeting criteria for ischemia. Nuclear images pending. Test reviewed with Dr Maldonado. Referred By: Bisi Bolanos Overread By: ORION POWELL
== END ==
LOC: HO.CARD 07:51
PROVIDERS: PCP Internal Medicine; Visit Provider Internal Medicine
DX: R07.89 Other chest pain (principal)
CPT/HCPCS: 78452; 93017; A9500

== ENCOUNTER 2021-02-17 11:29 | Outpatient (REF) | payer MEDICARE, SELFPAY ==
[2021-02-17 14:12] LABS: C Reactive Protein 0.55 mg/dL (< or = 0.50)
[2021-02-17 14:49] LABS: Erythrocyte Sedimentation Rate 5 MM/HR (0-20)
== END 2021-02-17 11:30 | disposition home or self-care (01) ==
LOC: HO.HMGCLDS 11:29
PROVIDERS: PCP Internal Medicine; Visit Provider Student in an Organized Health Care Education/Training Program
DX: M35.3 Polymyalgia rheumatica (principal)
CPT/HCPCS: 36415; 85652; 86140

== ENCOUNTER → 2021-02-20 09:13 | Outpatient (BNVA) | payer MEDICARE, SELFPAY | PROVIDERS: Visit Provider Student in an Organized Health Care Education/Training Program | DX: M35.3 Polymyalgia rheumatica (principal); M85.80 Other specified disorders of bone density and structure, unspecified site | CPT/HCPCS: 99212 ==

== ENCOUNTER 2021-03-30 08:28 | Outpatient (REF) | payer MEDICARE, SELFPAY ==
--- NOTE | ~2021-03-30 | US_ITS ---
EXAMINATION: US EXTRACRANIAL CAROTID DUPLEX, BILATERAL CLINICAL INFORMATION: Carotid bruit COMPARISON: None TECHNIQUE: Real-time ultrasound and Doppler techniques (integrating B-mode 2-D vascular images, Doppler spectral analysis and color-flow Doppler imaging) were utilized to interrogate the extracranial carotid arteries, the vertebral arteries and proximal subclavian arteries bilaterally. The degree of stenosis is determined by criteria similar to NASCET. FINDINGS: Right Side: 1. There is no atherosclerotic plaque seen in the bifurcation/proximal ICA region. 2. The common carotid artery PSV proximally is 105 cm/s and distally 114 cm/s. 3. The proximal internal carotid artery velocities are 60 cm/s systolic and 23 cm/s diastolic. 4. The proximal external carotid artery PSV is 99 cm/s. 5. The vertebral artery shows antegrade flow. 6. The subclavian artery waveforms are normal. Left Side: 1. There is no atherosclerotic plaque seen in the bifurcation/proximal ICA region. 2. The common carotid artery PSV proximally is 123 cm/s and distally 111 cm/s. 3. The proximal internal carotid artery velocities are 86 cm/s systolic and 30 cm/s diastolic. 4. The proximal external carotid artery PSV is 76 cm/s. 5. The vertebral artery shows antegrade flow. 6. The subclavian artery waveforms are normal. US/US carotid duplex BI IMPRESSION: 1. RIGHT: No hemodynamically significant stenosis 2. LEFT: No hemodynamically significant stenosis 3. Normal antegrade flow seen in both vertebral arteries.
== END 2021-03-30 08:29 | disposition home or self-care (01) ==
LOC: HO.HMGCX 08:28
PROVIDERS: PCP Internal Medicine; Visit Provider Internal Medicine
DX: R09.89 Other specified symptoms and signs involving the circulatory and respiratory systems (principal)
CPT/HCPCS: 93880

== ENCOUNTER 2021-04-21 08:45 | Outpatient (REF) | payer MEDICARE, SELFPAY ==
[2021-04-21 12:22] LABS: C Reactive Protein 0.65 mg/dL (< or = 0.50)
[2021-04-21 12:43] LABS: Erythrocyte Sedimentation Rate 7 MM/HR (0-20)
[2021-04-24 01:56] LABS: Cyclic Citrullinated Peptide <16 UNITS
== END 2021-04-21 08:46 | disposition home or self-care (01) ==
LOC: HO.HMGCLDS 08:45
PROVIDERS: PCP Internal Medicine; Visit Provider Student in an Organized Health Care Education/Training Program
DX: M35.3 Polymyalgia rheumatica (principal)
CPT/HCPCS: 36415; 85652; 86140; 86200

== ENCOUNTER → 2021-04-28 09:20 | Outpatient (BNVA) | payer MEDICARE, SELFPAY | PROVIDERS: PCP Internal Medicine; Visit Provider Nurse Practitioner Family | DX: M85.80 Other specified disorders of bone density and structure, unspecified site (principal); M35.3 Polymyalgia rheumatica | CPT/HCPCS: 99212 ==

== ENCOUNTER 2021-05-15 09:32 | Outpatient (REF) | payer MEDICARE, SELFPAY | END 2021-05-15 09:33 | disposition home or self-care (01) | LOC: HO.HMGCLDS 09:32 | PROVIDERS: PCP Internal Medicine; Visit Provider Internal Medicine | DX: Z20.822 Contact with and (suspected) exposure to COVID-19 (principal) | CPT/HCPCS: C9803; U0003; U0005 ==

== ENCOUNTER 2021-06-23 08:21 | Outpatient (REF) | payer MEDICARE, SELFPAY ==
[2021-06-23 12:30] LABS: Erythrocyte Sedimentation Rate 4 MM/HR (0-20)
[2021-06-23 12:34] LABS: C Reactive Protein 0.62 mg/dL (< or = 0.50)
== END 2021-06-23 08:22 | disposition home or self-care (01) ==
LOC: HO.HMGCLDS 08:21
PROVIDERS: Nurse Practitioner Family; PCP Internal Medicine; Visit Provider Student in an Organized Health Care Education/Training Program
DX: M35.3 Polymyalgia rheumatica (principal)
CPT/HCPCS: 36415; 85652; 86140

== ENCOUNTER → 2021-06-30 12:23 | Outpatient (BNVA) | payer MEDICARE, SELFPAY | PROVIDERS: PCP Internal Medicine; Visit Provider Nurse Practitioner Family | DX: M35.3 Polymyalgia rheumatica (principal); M85.80 Other specified disorders of bone density and structure, unspecified site; Z79.52 Long term (current) use of systemic steroids | CPT/HCPCS: 99212 ==

== ENCOUNTER 2021-08-05 08:10 | Outpatient (REF) | payer MEDICARE, SELFPAY ==
[2021-08-05 12:09] LABS: C Reactive Protein 0.37 mg/dL (< or = 0.50)
== END 2021-08-05 08:11 | disposition home or self-care (01) ==
LOC: HO.HMGCLDS 08:10
PROVIDERS: Visit Provider Student in an Organized Health Care Education/Training Program
DX: M35.3 Polymyalgia rheumatica (principal)
CPT/HCPCS: 36415; 86140

== ENCOUNTER 2021-08-13 12:54 | Outpatient (REF) | payer MEDICARE, SELFPAY ==
--- NOTE | ~2021-08-13 | XR_ITS ---
EXAMINATION: XR SHOULDER, RIGHT CLINICAL INFORMATION: Pain COMPARISON: None TECHNIQUE: AP external rotation, Grashey, scapular Y, and axillary views of the right shoulder. FINDINGS: Bone alignment is normal and bones appear osteopenic. The glenohumeral joint is normal. There is arthritis at the acromioclavicular joint. There are surgical clips in the right breast and axilla. XR/XR shoulder RT min 2V IMPRESSION: Arthritis at the acromioclavicular joint. Osteopenia.
== END 2021-08-13 12:55 | disposition home or self-care (01) ==
LOC: HO.XRAY 12:54
PROVIDERS: PCP Internal Medicine; Visit Provider Nurse Practitioner Family
DX: M25.511 Pain in right shoulder (principal); M35.3 Polymyalgia rheumatica; M85.80 Other specified disorders of bone density and structure, unspecified site; E78.5 Hyperlipidemia, unspecified; Z85.3 Personal history of malignant neoplasm of breast
CPT/HCPCS: 73030; 99212

== ENCOUNTER 2021-09-16 08:00 | Outpatient (RCR) | payer MEDICARE, SELFPAY ==
--- NOTE | 2021-09-16 08:54 | MHC.PT.DC ---
[facility] [place] Office [place] Office [place] Office [address] [phone] F: [phone] F: [phone] F: [phone] F: [phone] Physical Therapy Discharge Report Diagnosis: R upper arm pain Date of Surgery: Date of Evaluation: 08/06/21 Date of Discharge: 09/16/21 Treatments to Date: 9 Cancellations to Date: No Shows to Date: Discharge Status: Achieved Goals Improved Function Independent with HEP Discharge Summary: Alisia has been an active and motivated participant in her therapy in and out of the clinic; she has met all of her therapeutic goals, her pain is significantly improved as well as her functional tolerance for UE activities. She is in agreement with DC at this time. AM pain improved from 8-9/10 to 1-2/10; SPADI shoulder disability questionnaire improved from 64% to 1%. Electronically signed by: Chao Shields PT. Please sign and return to therapist. Thank you for your referral.
== END 2021-09-16 08:55 | disposition home or self-care (01) ==
LOC: HO.PTCHIC 08:00
PROVIDERS: PCP Internal Medicine; Visit Provider Nurse Practitioner Family
DX: M79.621 Pain in right upper arm (principal)
CPT/HCPCS: 97014; 97110; 97140; 97150; 97161

== ENCOUNTER 2021-10-07 08:16 | Outpatient (REF) | payer MEDICARE, SELFPAY ==
[2021-10-07 12:19] LABS: Erythrocyte Sedimentation Rate 3 MM/HR (0-20)
== END 2021-10-07 08:17 | disposition home or self-care (01) ==
LOC: HO.HMGCLDS 08:16
PROVIDERS: Visit Provider Nurse Practitioner Family
DX: M35.3 Polymyalgia rheumatica (principal)
CPT/HCPCS: 36415; 85652; 86140

== ENCOUNTER → 2021-10-13 11:26 | Outpatient (BNVA) | payer MEDICARE, SELFPAY | PROVIDERS: PCP Internal Medicine; Visit Provider Nurse Practitioner Family | DX: M35.3 Polymyalgia rheumatica (principal); M85.80 Other specified disorders of bone density and structure, unspecified site | CPT/HCPCS: 99212 ==

== ENCOUNTER 2022-01-04 07:50 | Outpatient (REF) | payer MEDICARE, SELFPAY ==
[2022-01-04 12:03] LABS: C Reactive Protein 0.32 mg/dL (< or = 0.50)
[2022-01-04 12:19] LABS: Erythrocyte Sedimentation Rate 6 MM/HR (0-20)
== END 2022-01-04 07:51 | disposition home or self-care (01) ==
LOC: HO.HMGCLDS 07:50
PROVIDERS: Visit Provider Nurse Practitioner Family
DX: M35.3 Polymyalgia rheumatica (principal)
CPT/HCPCS: 36415; 85652; 86140

== ENCOUNTER → 2022-01-13 12:43 | Outpatient (BNVA) | payer MEDICARE, SELFPAY | PROVIDERS: PCP Internal Medicine; Visit Provider Nurse Practitioner Family | DX: M35.3 Polymyalgia rheumatica (principal); M85.80 Other specified disorders of bone density and structure, unspecified site | CPT/HCPCS: 99212 ==

== ENCOUNTER 2022-02-23 12:48 | Outpatient (REF) | payer MEDICARE, SELFPAY ==
[2022-02-23 13:43] LABS: MANUAL DIFF FLAG NO
[2022-02-23 13:50] LABS: Basophils Absolute Auto 0.1 X10*3/uL (0.0-0.2); Basophils Percent Auto 0.8 % (0-2); Eosinophils Absolute Auto 0.2 X10*3/uL (0.0-0.4); Eosinophils Percent Auto 2.3 % (0-4); Hematocrit 44.1 % (37.0-47.0); Hemoglobin 15.1 g/dl (12.0-16.0); Imm Gran Abs Auto 0.04 X10*3/uL (0.00-0.03); Imm Gran Pct Auto 0.4 % (0.0-0.4); Lymphocytes Absolute Auto 2.5 X10*3/uL (1.2-4.9); Mean Corpuscular HGB Conc 34.2 g/dl (31.0-35.0); Mean Corpuscular Hemoglobin 29.7 pg (27.0-33.0); Mean Corpuscular Volume 86.6 fL (80.0-98.0); Monocytes Absolute Auto 0.8 X10*3/uL (0.1-1.2); Monocytes Percent Auto 8.4 % (2-11); Neutrophils Absolute Auto 5.6 x10*3/uL (2.0-8.3); Neutrophils Percent Auto 61.1 % (45-73); Platelet Count 286 X10*3/uL (160-400); Red Blood Count 5.09 X10*6/uL (4.20-5.50); White Blood Count 9.1 X10*3/uL (4.8-10.8)
[2022-02-23 14:19] LABS: Alanine Aminotransferase 19 U/L (0-31); Albumin Level 4.4 g/dL (3.5-5.0); Alkaline Phosphatase 65 U/L (39-117); Anion Gap 15 (12-20); Aspartate Amino Transferase 17 U/L (5-31); Bilirubin Total 0.9 mg/dL (0.0-1.0); Blood Urea Nitrogen 10 mg/dL (9-16); Calcium 9.5 mg/dL (8.4-10.2); Carbon Dioxide 25 mmol/L (22-29); Chloride 102 mmol/L (96-108); Cholesterol 253 mg/dL; Estimated Glomerular Filt Rate > 60; Glucose Fasting 90 mg/dL (60-99); HDL Cholesterol 66 mg/dL; LDL Cholesterol Calculated 170 mg/dl; Potassium 4.4 mmol/L (3.3-5.1); Sodium 138 mmol/L (135-145); Total Protein 7.1 g/dL (6.5-8.0); Triglycerides 86 mg/dL
[2022-02-23 14:29] LABS: TSH reflex Free T4 1.51 uIU/mL (0.32-4.0)
== END 2022-02-23 12:49 | disposition home or self-care (01) ==
LOC: HO.HMGCLDS 12:48
PROVIDERS: PCP Internal Medicine; Visit Provider Internal Medicine
DX: Z00.00 Encounter for general adult medical examination without abnormal findings (principal); E78.5 Hyperlipidemia, unspecified; Z78.0 Asymptomatic menopausal state
CPT/HCPCS: 36415; 80053; 80061; 84443; 85025

== ENCOUNTER 2022-02-26 13:30 | Outpatient (REF) | payer MEDICARE, SELFPAY ==
[2022-02-26 17:16] LABS: Vitamin D 25-OH Total 49.3 ng/mL (>30)
== END 2022-02-26 13:31 | disposition home or self-care (01) ==
LOC: HO.HMGCLDS 13:30
PROVIDERS: PCP Internal Medicine; Visit Provider Internal Medicine
DX: Z00.00 Encounter for general adult medical examination without abnormal findings (principal); E55.9 Vitamin D deficiency, unspecified; E78.5 Hyperlipidemia, unspecified; Z78.0 Asymptomatic menopausal state
CPT/HCPCS: 36415; 82306

== ENCOUNTER 2022-04-22 10:53 | Outpatient (REF) | payer MEDICARE, SELFPAY ==
--- NOTE | ~2022-04-22 | XR_ITS ---
EXAMINATION: THORACIC AND LUMBAR SPINE X-RAY CLINICAL INFORMATION: Pain COMPARISON: None TECHNIQUE: 2 views of the thoracic spine and 3 views of the lumbar spine FINDINGS: Thoracic spine: Bone alignment is normal. No fracture or dislocation is seen. There is multilevel degenerative disc disease and spondylosis. Paraspinal soft tissues are normal. There are surgical clips in the right axilla. Lumbar spine: There is mild curvature of the lower lumbar spine to the left. There is a 5 mm anterior subluxation of L3 with respect to L4. Bone alignment is otherwise normal. No fracture or dislocation. There is degenerative disc disease at L4-L5. There is lower lumbar spine facet arthritis. XR/XR thoracic spine 2V IMPRESSION: Thoracic spine: Degenerative changes. Lumbar spine: Mild scoliosis, anterior subluxation of L3 with respect to L4 and degenerative changes.
--- NOTE | ~2022-04-22 | XR_ITS ---
EXAMINATION: THORACIC AND LUMBAR SPINE X-RAY CLINICAL INFORMATION: Pain COMPARISON: None TECHNIQUE: 2 views of the thoracic spine and 3 views of the lumbar spine FINDINGS: Thoracic spine: Bone alignment is normal. No fracture or dislocation is seen. There is multilevel degenerative disc disease and spondylosis. Paraspinal soft tissues are normal. There are surgical clips in the right axilla. Lumbar spine: There is mild curvature of the lower lumbar spine to the left. There is a 5 mm anterior subluxation of L3 with respect to L4. Bone alignment is otherwise normal. No fracture or dislocation. There is degenerative disc disease at L4-L5. There is lower lumbar spine facet arthritis. XR/XR lumbar spine 2-3V IMPRESSION: Thoracic spine: Degenerative changes. Lumbar spine: Mild scoliosis, anterior subluxation of L3 with respect to L4 and degenerative changes.
[2022-04-22 14:10] LABS: Cholesterol 227 mg/dL; HDL Cholesterol 64 mg/dL; LDL Cholesterol Calculated 148 mg/dl; Triglycerides 76 mg/dL
[2022-04-22 14:33] LABS: Appearance Urine Clear; Color Urine Yellow; Glucose Urine UA Negative (Negative); Leukocyte Esterase Urine Negative (Negative); Nitrite Urine Negative (Negative); PH 5.5 (5.0-9.0); Urine Blood Negative (Negative); Urine Ketones Negative (Negative); Urine Protein Negative (Neg-Trace)
[2022-04-22 14:41] LABS: Bacteria Urine None Seen (None Seen); Hyaline Casts Urine 0-2 /LPF (0-2); RBC Urine 0-2 /HPF (0-2); Squamous Epithelial Cell Urine 0-2 /HPF (0-2); WBC Urine 0-5 /HPF (0-5)
== END 2022-04-22 10:54 | disposition home or self-care (01) ==
LOC: HO.HMGCX 10:53
PROVIDERS: PCP Internal Medicine; Visit Provider Internal Medicine
DX: E78.5 Hyperlipidemia, unspecified (principal); G89.29 Other chronic pain; M54.9 Dorsalgia, unspecified; R10.9 Unspecified abdominal pain
CPT/HCPCS: 36415; 72070; 72100; 80061; 81001

== ENCOUNTER 2022-05-17 15:21 | Outpatient (REF) | payer MEDICARE, SELFPAY ==
--- NOTE | ~2022-05-17 | US_ITS ---
EXAMINATION: US RETROPERITONEAL LIMITED (RENAL ONLY) CLINICAL INFORMATION: Unspecified abdominal pain. Flank pain. Rule out nephrolithiasis. COMPARISON: Abdominal ultrasound 12/23/2005 (report only). TECHNIQUE: Real-time imaging of the kidneys. FINDINGS: RIGHT KIDNEY: 10.8 x 4.0 x 4.0 cm (SAG x AP x TRV). The kidney is normal in size, contour, and echogenicity. Renal cortical thickness is normal. No calculi or focal parenchymal lesions. No hydronephrosis. LEFT KIDNEY: 11.0 x 4.9 x 4.7 cm (SAG x AP x TRV). The kidney is normal in size, contour, and echogenicity. Renal cortical thickness is normal. No calculi or focal parenchymal lesions. No hydronephrosis. US/US renal BI IMPRESSION: Unremarkable exam. No stone seen.
== END 2022-05-17 15:22 | disposition home or self-care (01) ==
LOC: HO.HMGCX 15:21
PROVIDERS: PCP Internal Medicine; Visit Provider Internal Medicine
DX: R10.9 Unspecified abdominal pain (principal); M54.9 Dorsalgia, unspecified; G89.29 Other chronic pain
CPT/HCPCS: 76775

== ENCOUNTER 2022-07-23 08:02 | Outpatient (REF) | payer MEDICARE, SELFPAY ==
--- NOTE | ~2022-07-23 | MM_ITS ---
EXAMINATION: BONE DENSITOMETRY CLINICAL INDICATION: Osteopenia. COMPARISON: Previous BD dated 06/17/2020 and baseline BD dated 01/25/2017. TECHNIQUE: Using a [employer] DXA System (software version: 13.1) manufactured by [id number], dual-energy x-ray absorptiometry was performed of the lumbar spine and left hip. The images are of good technical quality. Summary results are attached. FINDINGS: AP SPINE L1-L4: Current: BMD 0.995 g/cm2, Z-score 0.0, T-score -1.5, osteopenia, 5.1% decrease from previous, 2.3% increase from baseline (<5% change is not significant). Prior: BMD 1.049 g/cm2. Baseline: BMD 1.018 g/cm2. LEFT FEMUR, NECK: Current: BMD 0.764 g/cm2, Z-score -0.2, T-score -2.0, osteopenia. Prior: BMD 0.744 g/cm2. Baseline: BMD 0.801 g/cm2. LEFT FEMUR, TOTAL: Current: BMD 0.737 g/cm2, Z-score -0.6, T-score -2.1, osteopenia, 0.8% decrease from previous, 7.4% decrease from baseline (<5% change is not significant). Prior: BMD 0.743 g/cm2. Baseline: BMD 0.796 g/cm2. IDENTIFIED RISK FACTORS: Menopause, glucocorticoids (chronic). HISTORY OF FRACTURE: None listed. MEDICATIONS: Vitamin D. MM/XR DEXA axial skeleton IMPRESSION: 1. DIAGNOSIS: Osteopenia based on the lowest T-score value of -2.1 in the total femur applying World Health Organization criteria. 2. 10-YEAR FRACTURE RISK PREDICTION, FRAX: Major osteoporotic fracture (clinical spine, forearm, hip or shoulder) 20.3%. Hip fracture 5.9%. 3. Treatment Recommendations: NOF guidelines recommend consideration for treatment in postmenopausal women and men age 50 and older presenting with the following: -A hip or vertebral (clinical or morphometric) fracture. -T-score less than or equal to -2.5 at the femoral neck or spine after appropriate evaluation to exclude secondary causes. -Low bone mass at the hip or spine and a 10-year fracture probability by FRAX of greater than or equal to 3% for hip fracture or greater than or equal to 20% for major osteoporotic fracture based on the [place] adapted WHO algorithm. 4. Other Recommendations: All treatment decisions require clinical judgment and consideration of individual patient factors, including patient preferences, comorbidities, previous drug use, risk factors not captured in the FRAX model (e.g. frailty, falls, vitamin D deficiency, increased bone turnover, interval significant decline in bone density) and possible under or overestimation of fracture risk by FRAX. Additional medical evaluation for secondary cause of low bone mineral density may be appropriate. FUTURE SCAN RECOMMENDATION: People with diagnosed cases of osteoporosis or at high risk for fracture should have regular bone mineral density tests. For patients eligible for Medicare, routine testing is allowed once every 2 years. The testing frequency can be increased to one year for patients who have rapidly progressing disease, those who are receiving or discontinuing medical therapy to restore bone mass, or have additional risk factors.
== END 2022-07-23 08:03 | disposition home or self-care (01) ==
LOC: HO.MAMMO 08:02
PROVIDERS: Visit Provider Internal Medicine
DX: Z13.820 Encounter for screening for osteoporosis (principal); M85.80 Other specified disorders of bone density and structure, unspecified site; Z78.0 Asymptomatic menopausal state
CPT/HCPCS: 77080

== ENCOUNTER 2022-08-04 11:37 | Outpatient (REF) | payer MEDICARE, SELFPAY ==
[2022-08-04 14:29] LABS: C Reactive Protein 0.23 mg/dL (< or = 0.50)
[2022-08-04 14:47] LABS: Erythrocyte Sedimentation Rate 3 MM/HR (0-20)
== END 2022-08-04 11:38 | disposition home or self-care (01) ==
LOC: HO.HMGCLDS 11:37
PROVIDERS: PCP Internal Medicine; Visit Provider Nurse Practitioner Family
DX: M35.3 Polymyalgia rheumatica (principal)
CPT/HCPCS: 36415; 85652; 86140

== ENCOUNTER 2023-03-22 11:05 | Outpatient (AMB) | payer MEDICARE, SELFPAY ==
[2023-03-22 11:56] VITALS: BP 132/80; PULSE 59; O2SAT 96; BMI 28.1
--- NOTE | 2023-03-22 11:56 | A.OFFVIS_ITS ---
Intake Vital Signs 03/22/23 11:56 Height 5 ft 6 in Weight 174 lb BMI 28.1 BP 132/80 Blood Pressure Location Lt brachial Position Sitting Pulse 59 Pulse Source Pulse Oximeter Pulse Oximetry (%) 96 Oxygen Delivery Method Room Air Intake Visit Reasons: SWV [id number] Allergies No Known Allergies Allergy (Verified 03/22/23 11:58) Medication List - Last Reconciled 03/22/23 by Bisi Bolanos MD cholecalciferol (vitamin D3) 50 mcg PO DAILY flu vacc [id number](65yr up)-PF mL IM omega-3 fatty acids (Fish Oil) PO omeprazole 20 mg PO DAILY zolpidem 10 mg PO BEDTIME PRN HPI SWV [id number] HPI Details Pt presents for annual. Pt c/o upper chest discomfort on and off 2 x a week lasting a few hours at the time. Patient denies dysphagia or odynophagia and has been taking omeprazole daily for chronic GERD. She exercises 5 times a week at the gym and denies exercise induced chest pain or shortness of breath. Patient denies cough or pleurisy Initiated the conversation about Advanced Directives. Advanced Directives help? patients prepare for current and future decisions about their medical treatment? and place of care. Discussed with patient that it is a process where a patients? current condition and prognosis are reviewed, their wishes for information? regarding their illness are elicited, and likely medical dilemmas are presented? and options discussed. The form can be amended as needed, reviewed yearly and? make changes as needed IPPE/AWV ? year old presents? for her ? Annual? Wellness Visit, initial visit.? Medical / Social History Reviewed? Past Medical History ?Yes? . ? [place]? of Care / Care Team list updated ?Yes . ? Surgical/Hospitalization? History ?Yes . ? Current Medications? (including OTC and supplements) ?Yes . ? Family History ?Yes? . ? Tobacco? Control form ?Yes . ? AUDIT-C (Alcohol use) form? ?Yes . ? Illicit drug use in Social? History ?Yes . ? Current diagnosis of? depression? ?No ? Appropriate PHQ2/PHQ9? completed ?Yes . ? Data entered by ?Medical? Electronic Service Technician and reviewed by provider ? Fall Risk ? Fall? History? Have you had any falls with? injury in the past year? ?No . ? Have you had two or more? falls in the past year? ?No . ? Fall Risk Assessment: ?No? falls in the past year . ? HRA filled out by? the patient, reviewed by Provider and scanned. ? IPPE/AWV ? Balance? [place]? ?Yes . ? Tandem? walk ?Yes . ? Walk and? Turn ?Yes . ? Rise from? sit to stand ?Yes . ?Vision? Corrective? lens ?Yes ? Vision? screen ? Up-to-date, has an appointment [] for vision? screening and glaucoma screening ?Hearing? Whisper? test ?pass .? Initiated the conversation about Advanced Directives. Advanced Directives help? patients prepare for current and future decisions about their medical treatment? and place of care. Discussed with patient that it is a process where a patients? current condition and prognosis are reviewed, their wishes for information? regarding their illness are elicited, and likely medical dilemmas are presented? and options discussed. The form can be amended as needed, reviewed yearly and? make changes as needed Written? Plan?Completed. See Patient? Documents. [facility] Medical History Abnormal colonoscopy Annual physical exam Carotid bruit Chest tightness GERD (gastroesophageal reflux disease) History of breast cancer Hyperglycemia Hyperlipidemia Myalgia Plantar fasciitis Postmenopausal Surgical History History of lumpectomy of right breast History of tonsillectomy Family History (Updated 03/22/23 @ 12:04 by Pratima Lucio [facility]) Father No problems noted. Mother Mental health disorder Brother Pancreatic cancer Brother No problems noted. Brother Substance use disorder Son No problems noted. Daughter No problems noted. Social History Housing: House Alcohol intake: current Alcohol intake frequency: a few times a month Patient Tobacco Use Status: Never used Tobacco e-Cigarette/Vaping Use: Never Used Advance Directives Date on File: 09/06/19 Current occupational status: retired Cognitive needs: No Hearing needs: No Vision needs: Yes Questionnaire Medicare Wellness Checkup [age] What gender do you identify with?: female During the past 4 weeks, how much have you been bothered by emotional problems such as feeling anxious, depressed, irritable, sad or downhearted, and blue?: slightly During the past 4 weeks, has your physical & emotional health limited your social activities with family, friends, neighbors, or groups?: not at all During the past 4 weeks, how much bodily pain have you generally had?: very mild pain During the past 4 weeks, was someone available to help you if you needed & wanted help?: yes, as much as I wanted During the past 4 weeks, what was the hardest physical activity you could do for at least 2 minutes?: very heavy Can you get to places out of walking distance without help? (For eg., can you travel alone on buses, taxis or drive your car?): Yes Can you go shopping for groceries or clothes without someone's help?: Yes Can you prepare your own meals?: Yes Can you do your housework without help?: Yes Because of any health problems, do you need the help of another person with your personal care needs such as eating, bathing, dressing or getting around the house?: No Can you handle your own money without help?: Yes During the past 4 weeks, how would you rate your health in general?: very good During the past 4 weeks how have things been going for you?: very well; could hardly better Are you having difficulties driving your car?: no Do you always fasten your seat belt when you are in a car?: yes, usually During past 4 weeks, have you been bothered by the following: never: Falling or dizzy when standing up, Sexual problems?, Trouble eating well?, Teeth or denture problems?, Problems using the telephone? and Tiredness or fatigue? Have you fallen 2 or more times in the past year?: No Are you afraid of falling?: No Are you a smoker?: no During the past 4 weeks, how many drinks of wine, beer, or other alcoholic beverages did you have?: 1 drink or less per week Do you exercise for about 20 minutes 3 or more times a week?: yes, all the time Have you been given information to help with the following?: no: Hazards in your house that might hurt you? and no: Keeping track of your medications? How often do you have trouble taking medicines the way you have been told to take them?: I always take medicine as prescribed How confident are you that you can control & manage most of your health problems?: very confident What is your race?: White Mini Mental State Exam (MMSE) Orientation What is the (year) (season) (date) (day) (month)?: year, season, date, day and month Where are we (state) (county) (town or city) (hospital) (floor)?: state, county, town or city and hospital/clinic Registration Name of 3 unrelated objects clearly and slowly, then ask patient to repeat all 3 of them. (1st repeat determines score. Make sure they can repeat all three): object 1, object 2 and object 3 Attention & Calculation (CHOOSE ONE) Ask pt to begin with 100 & count backward by 7. Stop after 5 repeats. If pt cannot ask them to spell the word WORLD backward.: 93 Spell WORLD backwards (DLROW): 5 letters Recall Ask patient to repeat the 3 items from question #3.: object 1, object 2 and object 3 Language Show patient a wristwatch & ask what it is. Repeat for pencil.: watch and pencil Ask the patient to repeat the phrase 'No ifs, ands, or buts' after you.: correct Ask the patient to 'take a piece of paper with their right hand' 'fold paper in half' 'place paper on floor': take paper in right hand, fold paper in half and place paper on floor Print the sentence 'CLOSE YOUR EYES' on a piece. If patient actually closes eyes then score.: followed written direction Give patient a blank piece of paper & ask to write a sentence. Score if it contains a noun & verb.: sentence contains subject and verb Ask patient to copy figure of intersecting pentagons exactly. Score if all 10 angles & 2 intersects are included.: all 10 angles present & 2 are intersected Score Score: 30 PHQ-9 Over the last 2 weeks, how often have you been bothered by any of the following problems? 1. Little interest or pleasure in doing things: not at all 2. Feeling down, depressed, or hopeless: not at all 3. Trouble falling or staying asleep, or sleeping too much: not at all 4. Feeling tired or having little energy: several days 5. Poor appetite or overeating: not at all 6. Feeling bad about yourself - or that you are a failure or have let yourself or your family down: not at all 7. Trouble concentrating on things, such as reading the newspaper or watching television: not at all 8. Moving or speaking so slowly that other people could have noticed. Or the opposite - being so fidgety or restless that you have been moving around a lot more than usual: not at all 9. Thoughts that you would be better off or of hurting yourself in some way: not at all Total score: 1 Source: Developed by Drs. Vinicio LSheryl Oseguera, Sameer Russell and colleagues, with an educational janiya from [employer]. Review of Systems Const All systems reviewed & are unremarkable except as noted in HPI and below Reports no additional complaints Eyes Reports no additional complaints ENT Reports no additional complaints Card Reports no additional complaints Resp Reports no additional complaints GI Reports no additional complaints Reports no additional complaints Musc Reports no additional complaints Physical Exam Vital Signs: Last Vital Signs Pulse 59 03/22/23 11:56 BP 132/80 03/22/23 11:56 Pulse Ox 96 03/22/23 11:56 Oxygen Delivery Method Room Air 03/22/23 11:56 BMI result Body Mass Index 28.1 Const General: no acute distress HEENT Head: Yes normal to inspection Ears: hearing grossly normal bilaterally Eyes General: appearance normal, both eyes and all related structures Neck Neck: Yes no lymphadenopathy and Yes supple Resp Effort & Inspection: normal respiratory effort Auscultation: clear to auscultation bilaterally Cardio Rhythm: regular rhythm Heart sounds: S1 normal heart sound present and S2 normal heart sound present GI Inspection: Yes normal to inspection Palpation (GI): Soft to palpation Percussion: Yes normal to percussion Auscultation: normal bowel sounds Extrem General: Yes no clubbing, cyanosis or edema Assessment & Plan Assessment & Plan (1) Back pain: Code(s): M54.9 - Dorsalgia, unspecified Plan: refer to PT (2) Vitamin D deficiency: Code(s): E55.9 - Vitamin D deficiency, unspecified Plan: check the vit D (3) Annual physical exam: Code(s): Z00.00 - Encounter for general adult medical examination without abnormal findings Plan: well balanced diet, regular exercise discussed. Patient is up-to-date with mammogram (4) Hyperglycemia: Code(s): R73.9 - Hyperglycemia, unspecified (5) Osteopenia: Comment: Refused to take Fosamax Code(s): M85.80 - Other specified disorders of bone density and structure, unspecified site Qualifiers: Osteopenia location: unspecified Qualified Code(s): M85.80 - Other specified disorders of bone density and structure, unspecified site (6) Hyperlipidemia: Code(s): E78.5 - Hyperlipidemia, unspecified Plan: cont low cholesterol diet (7) GERD (gastroesophageal reflux disease): Comment: EGD 05/2020, esophagitis Code(s): K21.9 - Gastro-esophageal reflux disease without esophagitis Plan: Continue PPI follow-up with the GI to discuss repeat EGD, EKG SHOWED NORMAL SINUS RHYTHM BRADYCARDIA AT [address]-T CHANGES Orders: Orders PT Evaluation and Treatment Today M54.9 - Dorsalgia, unspecified Vitamin B12 and Folate Today E55.9 - Vitamin D deficiency, unspecified, E78.5 - Hyperlipidemia, unspecified, M85.80 - Other specified disorders of bone density and structure, unspecified site, R73.9 - Hyperglycemia, unspecified, Z00.00 - Encounter for general adult medical examination without abnormal findings Comprehensive [place]. Panel Fast Today E55.9 - Vitamin D deficiency, unspecified, E78.5 - Hyperlipidemia, unspecified, M85.80 - Other specified disorders of bone density and structure, unspecified site, R73.9 - Hyperglycemia, unspecified, Z00.00 - Encounter for general adult medical examination without abnormal findings Lipid Panel Today E55.9 - Vitamin D deficiency, unspecified, E78.5 - Hyperlipidemia, unspecified, M85.80 - Other specified disorders of bone density and structure, unspecified site, R73.9 - Hyperglycemia, unspecified, Z00.00 - Encounter for general adult medical examination without abnormal findings TSH reflex Free T4 Today E55.9 - Vitamin D deficiency, unspecified, E78.5 - Hyperlipidemia, unspecified, M85.80 - Other specified disorders of bone density and structure, unspecified site, R73.9 - Hyperglycemia, unspecified, Z00.00 - Encounter for general adult medical examination without abnormal findings Vitamin D 25-OH Total Today E55.9 - Vitamin D deficiency, unspecified, E78.5 - Hyperlipidemia, unspecified, M85.80 - Other specified disorders of bone density and structure, unspecified site, R73.9 - Hyperglycemia, unspecified, Z00.00 - Encounter for general adult medical examination without abnormal findings Complete Blood Count Auto Diff Today E55.9 - Vitamin D deficiency, unspecified, E78.5 - Hyperlipidemia, unspecified, M85.80 - Other specified disorders of bone density and structure, unspecified site, R73.9 - Hyperglycemia, unspecified, Z00.00 - Encounter for general adult medical examination without abnormal findings Quality Reporting (2019) Depression/Bipolar (159/160/161/177) PHQ-9: Total score: 1 Coding Level of Care Code Medicare Subsequent (G0439) Diagnoses Back pain M54.9 Vitamin D deficiency E55.9 Annual physical exam Z00.00 Hyperglycemia R73.9 Osteopenia M85.80 Osteopenia location: unspecified Hyperlipidemia E78.5 GERD (gastroesophageal reflux disease) K21.9 CPT Codes Advance Care Planning - Time spent: 1-15 minutes, not on file ([id number]) Advance Care Planning Advance Care Planning discussion: Exists, not on file Forms completed: Health Care Proxy Time spent: 1-15 minutes, not on file
== END 2023-03-22 13:01 | disposition home or self-care (01) ==
PROVIDERS: Visit Provider Internal Medicine
DX: Z00.00 Encounter for general adult medical examination without abnormal findings (principal); E55.9 Vitamin D deficiency, unspecified; K21.9 Gastro-esophageal reflux disease without esophagitis; M54.9 Dorsalgia, unspecified; R73.9 Hyperglycemia, unspecified; M85.80 Other specified disorders of bone density and structure, unspecified site; E78.5 Hyperlipidemia, unspecified
CPT/HCPCS: 1124F; G0439

== ENCOUNTER 2023-03-22 13:02 | Outpatient (REF) | payer MEDICARE, SELFPAY ==
[2023-03-22 16:02] LABS: MANUAL DIFF FLAG NO
[2023-03-22 16:51] LABS: Alanine Aminotransferase 15 U/L (0-31); Albumin Level 4.2 g/dL (3.5-5.0); Alkaline Phosphatase 57 U/L (39-117); Anion Gap 11 (12-20); Aspartate Amino Transferase 17 U/L (5-31); Bilirubin Total 0.5 mg/dL (0.0-1.0); Blood Urea Nitrogen 9 mg/dL (9-16); Calcium 9.8 mg/dL (8.4-10.2); Carbon Dioxide 27 mmol/L (22-29); Chloride 104 mmol/L (96-108); Cholesterol 228 mg/dL (<200); Estimated Glomerular Filt Rate > 60; Glucose Fasting 90 mg/dL (60-99); HDL Cholesterol 73 mg/dL (>40); LDL Cholesterol Calculated 135 mg/dL (<100); Sodium 138 mmol/L (135-145); Total Protein 7.1 g/dL (6.5-8.0); Triglycerides 103 mg/dL (<150)
[2023-03-22 17:07] LABS: Basophils Absolute Auto 0.1 X10*3/uL (0.0-0.2); Basophils Percent Auto 0.6 % (0-2); Eosinophils Absolute Auto 0.2 X10*3/uL (0.0-0.4); Eosinophils Percent Auto 2.3 % (0-4); Hematocrit 45.1 % (37.0-47.0); Hemoglobin 15.5 g/dl (12.0-16.0); Imm Gran Abs Auto 0.04 X10*3/uL (0.00-0.03); Imm Gran Pct Auto 0.4 % (0.0-0.4); Lymphocytes Absolute Auto 2.6 X10*3/uL (1.2-4.9); Lymphocytes Percent Auto 26.9 % (20-40); Mean Corpuscular HGB Conc 34.4 g/dl (31.0-35.0); Mean Corpuscular Hemoglobin 30.2 pg (27.0-33.0); Mean Corpuscular Volume 87.7 fL (80.0-98.0); Mean Platelet Volume 10.8 fL (9.4-12.3); Monocytes Absolute Auto 0.7 X10*3/uL (0.1-1.2); Monocytes Percent Auto 7.6 % (2-11); Neutrophils Absolute Auto 6.1 x10*3/uL (2.0-8.3); Neutrophils Percent Auto 62.2 % (45-73); Platelet Count 295 X10*3/uL (160-400); Red Blood Count 5.14 X10*6/uL (4.20-5.50); Red Cell Distribution Width 12.3 % (11.0-16.0); White Blood Count 9.8 X10*3/uL (4.8-10.8)
[2023-03-22 17:08] LABS: TSH reflex Free T4 2.48 uIU/mL (0.32-4.0); Vitamin D 25-OH Total 83.7 ng/mL (>30)
[2023-03-22 17:21] LABS: Folate > 20.0 ng/mL (> or = 4.0); Vitamin B12 444 pg/mL (200-900)
== END 2023-03-22 13:03 | disposition home or self-care (01) ==
LOC: HO.HMGCLDS 13:02
PROVIDERS: PCP Internal Medicine; Visit Provider Internal Medicine
DX: Z00.00 Encounter for general adult medical examination without abnormal findings (principal); E55.9 Vitamin D deficiency, unspecified; E78.5 Hyperlipidemia, unspecified; R73.9 Hyperglycemia, unspecified; M85.80 Other specified disorders of bone density and structure, unspecified site
CPT/HCPCS: 36415; 80053; 80061; 82306; 82607; 82746; 84443; 85025

== ENCOUNTER 2023-06-07 09:04 | Outpatient (AMB) | payer MEDICARE, SELFPAY ==
[2023-06-07 09:09] VITALS: BP 130/84; PULSE 77; O2SAT 99; BMI 28.4
--- NOTE | 2023-06-07 09:09 | MHC.OFFWIV ---
Intake Vital Signs 06/07/23 09:09 Height 5 ft 6 in Weight 176 lb BMI 28.4 BP 130/84 Blood Pressure Location Lt brachial Position Sitting Pulse 77 Pulse Source Pulse Oximeter Pulse Oximetry (%) 99 Oxygen Delivery Method Room Air Intake Visit Reasons: EST/uti(lobby) Patient Tobacco Use Status: Never used Tobacco Allergies No Known Allergies Allergy (Verified 06/07/23 09:10) Medication List - Last Reconciled 06/07/23 by Noé Mata MD cholecalciferol (vitamin D3) 50 mcg PO DAILY omega-3 fatty acids (Fish Oil) PO omeprazole 20 mg PO DAILY Do you need a note to return to daycare/school/sports/work: No HPI EST/uti(lobby) HPI Details Patient is 77-year-old female started having symptoms of UTI Tuesday night She is having frequency and urgency Day he has no back pain No nausea vomiting fever chills. Urine test shows signs of infection with blood I am treating her with Macrobid for 5 days We will send urine for culture Patient was instructed to push fluids. [facility] Medical History Annual physical exam Carotid bruit Chest tightness Hyperglycemia Myalgia Postmenopausal Abnormal colonoscopy Plantar fasciitis Hyperlipidemia GERD (gastroesophageal reflux disease) History of breast cancer Surgical History History of tonsillectomy History of lumpectomy of right breast Family History Father No problems noted. Mother Mental health disorder Brother Pancreatic cancer Brother No problems noted. Brother Substance use disorder Son No problems noted. Daughter No problems noted. Social History Housing: House Alcohol intake: current Alcohol intake frequency: a few times a month Patient Tobacco Use Status: Never used Tobacco e-Cigarette/Vaping Use: Never Used Advance Directives Date on File: 09/06/19 Current occupational status: retired Cognitive needs: No Hearing needs: No Vision needs: Yes Review of Systems Const All systems reviewed & are unremarkable except as noted in HPI and below Physical Exam Vital Signs: Last Vital Signs Pulse 77 06/07/23 09:09 BP 130/84 06/07/23 09:09 Pulse Ox 99 06/07/23 09:09 Oxygen Delivery Method Room Air 06/07/23 09:09 BMI result Body Mass Index 28.4 Const General: no acute distress Orientation/consciousness: patient oriented x3 Eyes General: appearance normal, both eyes and all related structures Resp Effort & Inspection: normal respiratory effort and able to speak in complete sentences Auscultation: clear to auscultation bilaterally Cardio Other: S1 S2 Neuro General: patient oriented x3 Psych Mental Status: mental status grossly normal Results AMB Urinalysis, Automated UA Leukoctes 500 Christie/uL Last Edit by Woodrow Lancaster CMA on 06/07/23 09:15 UA Nitrite Positive Last Edit by Woodrow Lancaster CMA on 06/07/23 09:15 UA Urobilinogen 0.2 mg/dL Last Edit by Woodrow Lancaster CMA on 06/07/23 09:15 UA Protein 15 mg/dL Last Edit by Woodrow Lancaster CMA on 06/07/23 09:15 UA pH 6.5 Last Edit by Woodrow Lancaster CMA on 06/07/23 09:15 UA Blood 200 Joshua/uL Last Edit by Woodrow Lancaster CMA on 06/07/23 09:15 UA Specific [place]rod 1.015 Last Edit by Woodrow Lancaster CMA on 06/07/23 09:15 UA Ketone Negative Last Edit by Woodrow Lancaster CMA on 06/07/23 09:15 UA Bilirubin 0 mg/dL Last Edit by Woodrow Lancaster CMA on 06/07/23 09:15 UA Glucose 0 mg/dL Last Edit by Woodrow Lancaster CMA on 06/07/23 09:15 Results Reviewed Results Reviewed: Laboratory Last Values Urine pH (Auto) 6.5 06/07/23 09:14 Specific [place] (Auto) 1.015 06/07/23 09:14 Urine Protein (Auto) 15 mg/dL 06/07/23 09:14 Glucose (UA)(Auto) 0 mg/dL 06/07/23 09:14 Urine Ketones (Auto) Negative 06/07/23 09:14 Urine Blood (Auto) 200 Joshua/uL 06/07/23 09:14 Urine Nitrite (Auto) Positive 06/07/23 09:14 Urine Bilirubin (Auto) 0 mg/dL 06/07/23 09:14 Urine Urobilinogen (Auto) 0.2 mg/dL 06/07/23 09:14 Leukocyte Esterase (Auto) 500 Christie/uL 06/07/23 09:14 Assessment & Plan Assessment & Plan (1) Acute cystitis: Code(s): N30.00 - Acute cystitis without hematuria Qualifiers: Hematuria presence: with hematuria Plan Patient is 77-year-old female started having symptoms of UTI Tuesday night She is having frequency and urgency Day he has no back pain No nausea vomiting fever chills. Urine test shows signs of infection with blood I am treating her with Macrobid for 5 days We will send urine for culture Patient was instructed to push fluids. Orders: Orders AMB Urinalysis Automated Today Z13.9 - Encounter for screening, unspecified Urine Culture Today N30.00 - Acute cystitis without hematuria Medications: New nitrofurantoin monohyd/m-cryst 100 mg (Macrobid) must administer with a meal/food 100 mg PO Q12H 10 caps 0RF 5 days Coding Level of Care Code Est Pt Level 3 (79757) Diagnoses Acute cystitis N30.00 Hematuria presence: with hematuria
== END 2023-06-07 09:22 | disposition home or self-care (01) ==
PROVIDERS: PCP Internal Medicine; Visit Provider Internal Medicine
DX: N30.00 Acute cystitis without hematuria (principal); R35.0 Frequency of micturition
CPT/HCPCS: 81003; 99213

== ENCOUNTER 2023-07-02 08:33 | Emergency (ER) | payer MEDICARE, SELFPAY ==
--- NOTE | ~2023-07-02 | CT_ITS ---
EXAMINATION: CT ABDOMEN AND PELVIS WITHOUT CONTRAST CLINICAL INFORMATION: UTI with hematuria.. Evaluate for stones. COMPARISON: Ultrasound abdomen 05/17/2022. TECHNIQUE: Multidetector volumetric imaging was performed from the superior aspect of the liver through the pubic symphysis. Sagittal and coronal reformatted images were obtained on the technologist's workstation. This CT examination was performed using dose optimization techniques as appropriate, variously including the following: *Automated exposure control *Adjustment of mA and/or kV according to patient size (this includes techniques or standardized protocols for targeted exams where dose is matched to indication/reason for exam; i.e. extremities or head) *Use of iterative reconstruction technique DLP: 656 mGy-cm FINDINGS: LUNG BASES: The visualized lung bases are unremarkable. LIVER, GALLBLADDER, AND BILIARY TREE: The liver is normal in size, shape, and attenuation. No focal hepatic lesion or biliary ductal dilatation is present. The gallbladder is unremarkable with no evidence of radiopaque gallstones, gallbladder wall thickening, or obvious pericholecystic inflammatory changes. PANCREAS: Unremarkable. SPLEEN: Unremarkable. ADRENAL GLANDS: Unremarkable. KIDNEYS AND URETERS: The kidneys are normal in size, shape, and attenuation. No hydronephrosis, hydroureter, or calculi seen. No perinephric stranding. BLADDER: There is a 1 mm dependent radiopaque or hypodensity to the right of right UVJ on axial slice 68/3. This may be represent a stone just past. GASTROINTESTINAL TRACT: There is scattered stool and gas seen throughout the colon without distention. The small bowel loops are normal caliber. Appendix is normal caliber. The stomach is nondistended. No free air or free fluid. ABDOMINAL WALL: A small umbilical hernia containing fat is noted. LYMPH NODES: Normal. VASCULAR: Unremarkable. PELVIC VISCERA: The uterus is anteverted and appears unremarkable. No adnexal mass or free fluid seen. There is no abnormal pelvic or inguinal lymph nodes. OSSEOUS STRUCTURES: Mild degenerative disc changes L4-L5 disc level with endplate sclerosis. No aggressive lytic or sclerotic process seen. There is grade [address] over L[address]/CT abdomen pelvis wo IV con IMPRESSION: 1 mm punctate hyper density along the dependent portion of right bladder lateral to the right UVJ. Question tiny stone versus calcification. There is no hydroureteronephrosis seen Moderate constipation. Fleischner guidelines were followed.
[2023-07-02 08:40] VITALS: BP 115/88; PULSE 76; RESP 18; TEMP 36.2; O2SAT 99; BMI 27.4
--- NOTE | 2023-07-02 09:29 | PC.NURSE ---
Pt reports finishing antx tx for UTI around , reporting 2 days of hematuria, and lower back back rating 2-3/10 intermit coming and going.. Reporting UTI symptoms have started to return. Awaiting urine results/provider at this time
[2023-07-02 09:35] LABS: Appearance Urine Hazy; Color Urine Red; PH 7.5 (5.0-9.0)
[2023-07-02 09:36] LABS: Glucose Urine UA Negative (Negative); Leukocyte Esterase Urine Large (3+) (Negative); Nitrite Urine Negative (Negative); Specific Gravity - Urine 1.015 (1.005-1.025); UMIC TRIGGER UACC YES; Urine Blood Large (3+) (Negative); Urine Ketones Negative (Negative); Urine Protein 100 (2+) mg/dL (Neg-Trace)
[2023-07-02 09:37] LABS: Bacteria Urine None Seen (None Seen); Hyaline Casts Urine 0-2 /LPF (0-2); RBC Urine >20 /HPF (0-2); Squamous Epithelial Cell Urine 0-2 /HPF (0-2); UACC Culture Trigger YES; WBC Urine >50 /HPF (0-5)
--- NOTE | 2023-07-02 09:50 | ED.FEMALEGU ---
HPI - Female Genitourinary General Chief complaint: Urogenital-Female Stated complaint: UTI? Time Seen by Provider: 07/02/23 08:57 Source: patient Mode of arrival: ambulatory Limitations: no limitations History of Present Illness HPI Narrative: 77 year old postmenopausal female with pmhx significant for polymyalgia rheumatica, HDL, breast cancer S/P chemo and radiation therapy with lumpectomy, GERD presents to the ED today with a complaint of dysuria, urinary frequency/urgency, dark urine, and bilateral flank pain x1 day. Patient was diagnosed with a urinary tract infection approximately 3 weeks ago. She completed a course of nitrofurantoin in prescribed by urgent care with symptom resolution. Yesterday began having burning with urination and the feeling of incomplete bladder emptying. She noticed that her urine was dark brown/red in coloration prompting her to come to the ED for evaluation. Reports a short episode of bilateral flank pain while using the restroom this morning. This has completely resolved. Denies pain at present. Denies fever, chills, abdominal pain, N/V, vaginal discharge. Denies present or history of tobacco use. Related Data Home Medications Medication Instructions Recorded Confirmed omega-3 fatty acids [Fish Oil] PO 08/18/20 06/07/23 cholecalciferol (vitamin D3) 50 50 mcg PO DAILY 09/05/20 06/07/23 mcg (2,000 unit) capsule Previous Rx's Medication Instructions Recorded nitrofurantoin 100 mg PO Q12H 5 days #10 caps 06/07/23 monohydrate/macrocrystals 100 mg capsule (Macrobid) omeprazole 20 mg capsule,delayed 20 mg PO DAILY #90 caps 06/22/23 release cephalexin 500 mg capsule 500 mg PO BID 7 days #14 caps 07/02/23 docusate sodium 100 mg capsule 100 mg PO DAILY #10 caps 07/02/23 (Colace) polyethylene glycol 3350 17 17 g PO DAILY 4 days #68 grams 07/02/23 gram/dose oral powder (Miralax) Allergies Allergy/AdvReac Type Severity Reaction Status Date / Time No Known Allergies Allergy Verified 07/02/23 08:39 Review of Systems Review of Systems: Constitutional: No fever, chills, fatigue, night sweats, weight changes ENT/Mouth: No ear pain, hearing loss, nasal congestion, sinus pain, rhinorrhea, sore throat Eyes: No eye pain, swelling, redness, vision changes, discharge Cardio: No chest pain, palpitations, OTERO, orthopnea, peripheral edema Pulm: No SOB, cough, sputum, wheezing, dyspnea, hemoptysis GI: No nausea, vomiting, hematemesis, abdominal pain, diarrhea, constipation, hematochezia, melena : No irregular bleeding, +dysuria, +frequency, +urgency, No hesitancy, +hematuria, + flank pain, No urinary flow changes, urinary incontinence or retention MSK: No back pain, neck pain, joint pain, myalgias Skin: No lesions, rashes Neuro: No weakness, numbness, paresthesias, LOC, dizziness, headache All other systems reviewed and are negative. [facility] Past Medical History Attestation statement: The following information was validated with the patient. Source: old records reviewed and nursing notes reviewed Medical History Annual physical exam Carotid bruit Chest tightness Hyperglycemia Myalgia Postmenopausal Abnormal colonoscopy Plantar fasciitis Hyperlipidemia GERD (gastroesophageal reflux disease) History of breast cancer Surgical History History of tonsillectomy History of lumpectomy of right breast Family History Family History Father No problems noted. Mother Mental health disorder Brother Pancreatic cancer Brother No problems noted. Brother Substance use disorder Son No problems noted. Daughter No problems noted. Social History Social History Housing: House Alcohol intake: current Alcohol intake frequency: a few times a month Patient Tobacco Use Status: Never used Tobacco e-Cigarette/Vaping Use: Never Used Advance Directives: Yes Advance Directives on File: Yes Advance Directives Date on File: 09/06/19 Current occupational status: retired Cognitive needs: No Hearing needs: No Vision needs: Yes Physical Exam Vital Signs: Vital Signs: Last Vital Signs Temp 97.2 F 07/02/23 08:40 Pulse 76 07/02/23 08:40 Resp 18 07/02/23 08:40 BP 115/88 07/02/23 08:40 Pulse Ox 99 07/02/23 08:40 O2 Del Method Room Air 07/02/23 08:40 BMI result Body Mass Index 27.4 Vital signs stable, afebrile. Const: General: cooperative, healthy appearing, comfortable, no acute distress, alert and awake Orientation/consciousness: patient oriented x3 Limitations: no limitations HEENT: Head: Yes normal to inspection Ears: hearing grossly normal bilaterally Mouth: Normal oral and palatal mucosa present, lip normal and moist mucous membranes Throat: Yes posterior oropharynx normal Eyes: General: appearance normal, both eyes and all related structures Conjunctivae: conjunctivae normal Sclerae: sclerae normal Pupils: Equal, round and reactive pupils present Neck: Neck: Yes normal visual inspection Resp: Effort & Inspection: normal respiratory effort Auscultation: clear to auscultation bilaterally Cardio: Rate: regular rate Rhythm: regular rhythm Peripheral pulses: radial pulses present GI: Other: + abdomen soft, nondistended, nontender to palpation, no rebound tenderness or guarding. Normoactive bowel sounds x4. Inspection: Yes normal to inspection Rectal Exam - Female: deferred : General: Yes no CVA tenderness Back/Spine/Pelvis: Other: No midline spinous tenderness. No paraspinal muscle tenderness. No step off deformity. Back: no CVA tenderness Skin: General skin exam: no rashes or lesions noted Neuro: General: patient oriented x3, gait normal and moves all extremities Cranial nerves: Yes Equal, round and reactive pupils present Extrem: General: Yes normal to inspection Course Course Course Narrative: 0950-- UA with red urine color, high amount of protein, large amount of blood, over 20 RBC, large leukocyte esterase and over 50 WBCs >> will obtain basic labs and CT to evaluate renal function. 1121-- CBC showing slight leukocytosis to 11.8 when compared to priors, no left shift. Chemistry without acute electrolyte abnormality requiring intervention. Renal function WNL. On CT scan abdomen/pelvis there is a 1 mm punctate hyperdensity along the dependent portion of the right bladder, lateral to the right UVJ. There is question tiny stone versus calcification, possible representation of a stone that just passed. There is no hydronephrosis. No ureteral dilation. Also shows constipation, last bowel movement this morning. Will order trial void with PVR to assess for urinary retention. Likely urinary tract infection w/ stone passage. No concern for hydronephrosis or pyelonephritis. 1130-- pre void bladder scan with 190cc. Postvoid residual of 0cc. No concern for urinary retention. Patient has a urinary tract infection with possible passage of 1 mm stone. Will send patient home with cephalexin for urinary tract infection. Will also send MiraLax and Colace to pharmacy for constipation. Informed patient of results. Discussed worrisome signs and symptoms of when to return to the emergency department. Patient has remained stable throughout ED visit today. All questions answered at this time. Patient is agreeable with disposition and stable for discharge. Medical Decision Making Medical Decision Making [facility] Narrative: 77 year old postmenopausal female with pmhx significant for polymyalgia rheumatica, HDL, breast cancer S/P chemo and radiation therapy with lumpectomy, GERD presents to the ED today with a complaint of dysuria, urinary frequency/urgency, dark urine, and bilateral flank pain x1 day. Vital signs stable, afebrile. Patient is nontoxic appearing and in no acute distress. Abdomen is soft, ND/NT, no rebound tenderness or guarding, normoactive bowel sounds x4. Bladder not palpable. No CVAT bilaterally. Rectal exam deferred per patient. Clinical concern for urinary tract infection, nephrolithasis, hydronephrosis. Lower suspicion for pyelonephritis, CLAUDIA, obstructive uropathy. Plan for UA, CT, basic labs, and re-evaluation. Differential Diagnosis Differential Diagnoses: The differential diagnosis associated with the presentation includes as above. Admission/Observation not indicated. Lab Data [facility] Lab Attestation statement: I reviewed the patient's lab results. as above. 07/02/23 09:59 07/02/23 09:59 Labs: Lab Results 07/02/23 07/02/23 Range/Units 09:23 09:59 WBC 11.8 H (4.8-10.8) X10*3/uL RBC 4.81 (4.20-5.50) X10*6/uL Hgb 14.4 (12.0-16.0) g/dl Hct 42.7 (37.0-47.0) % MCV 88.8 (80.0-98.0) fL MCH 29.9 (27.0-33.0) pg MCHC 33.7 (31.0-35.0) g/dl RDW 12.0 (11.0-16.0) % Plt Count 276 (160-400) X10*3/uL MPV 10.5 (9.4-12.3) fL Immature Gran % (Auto) 0.4 (0.0-0.4) % Neut % (Auto) 78.6 H (45-73) % Lymph % (Auto) 13.5 L (20-40) % [place] % (Auto) 5.9 (2-11) % Eos % (Auto) 1.2 (0-4) % Baso % (Auto) 0.4 (0-2) % Lymph # (Auto) 1.6 (1.2-4.9) X10*3/uL [place] # (Auto) 0.7 (0.1-1.2) X10*3/uL Eos # (Auto) 0.1 (0.0-0.4) X10*3/uL Baso # (Auto) 0.1 (0.0-0.2) X10*3/uL Abs Immat Gran (auto) 0.05 H (0.00-0.03) X10*3/uL Absolute Neuts (auto) 9.3 H (2.0-8.3) x10*3/uL Absolute Nucleated RBC 0.000 (0.0-0.012) X10*3/uL Nucleated RBC % (auto) 0.0 (0.0-0.2) /100WBC Sodium 140 (135-145) mmol/L Potassium 4.0 (3.3-5.1) mmol/L Chloride 104 (96-108) mmol/L Carbon Dioxide 26 (22-29) mmol/L Anion Gap 14 (12-20) BUN 10 (9-16) mg/dL Creatinine 0.73 (0.5-1.4) mg/dL Estim Creat Clear Calc 69.8 Estimated GFR > 60 Random Glucose 102 (60-115) mg/dL Calcium 9.2 D (8.4-10.2) mg/dL Magnesium 1.8 (1.6-2.6) mg/dL Total Bilirubin 0.7 (0.0-1.0) mg/dL AST 18 (5-31) U/L ALT 18 (0-31) U/L Alkaline Phosphatase 62 (39-117) U/L Total Creatine Kinase 78 (26-140) U/L Total Protein 7.0 (6.5-8.0) g/dL Albumin 4.1 (3.5-5.0) g/dL Lipase 15 (8-78) U/L Urine Color Red A Urine Appearance Hazy Urine pH 7.5 (5.0-9.0) Ur Specific [place] 1.015 (1.005-1.025) Urine Protein 100 (2+) H (Neg-Trace) mg/dL Urine Glucose (UA) Negative (Negative) mg/dL Urine Ketones Negative (Negative) mg/dL Urine Blood Large (3+) H (Negative) Urine Nitrite Negative (Negative) Ur Leukocyte Esterase Large (3+) H (Negative) Urine RBC >20 H (0-2) /HPF Urine WBC >50 H (0-5) /HPF Ur Squamous Epith Cells 0-2 (0-2) /HPF Urine Bacteria None Seen (None Seen) Hyaline Casts 0-2 (0-2) /LPF Independent Interpretation I performed an independent interpretation of an: CT Scan Interpretation: CT scan abdomen/pelvis without hydronephrosis, agree with radiologist's interpretation. Radiology Impression Discussion of test interpretation with radiology: I have reviewed the radiologist's reading. Radiologist Impression: CT abdomen pelvis wo IV con IMPRESSION: 1 mm punctate hyper density along the dependent portion of right bladder lateral to the right UVJ. Question tiny stone versus calcification. There is no hydroureteronephrosis seen Moderate constipation. Fleischner guidelines were followed. External Record Review External record reviewed: Inpatient record, Office record, Outpatient record, Prior outpatient labs, Prior outpatient radiology, Primary care record and Outside ED record Prescription Management I considered prescription management with: Pain Medication, Antibiotic and Other (laxative, stool softener) Critical Care Time Critical Care Time Critical Care Time: No Discharge Plan Discharge Clinical Impression: Acute UTI, Bladder calculi Patient Disposition: Home, Self-Care Instructions: Urinary Tract Infection in Older Adults (ED) Additional Instructions: Your urine today was positive for infection. The CT scan of your abdomen/pelvis shows a 1 mm hyperdensity along the right portion of the bladder which may signify passage of a small stone. Your labs today are unremarkable. Cephalexin is an antibiotic that has been sent to your pharmacy. Take this twice daily for the next 7 days. Take this to completion. Do not miss any doses or stop taking this early as this may cause infection to worsen or return. CT also showed constipation. MiraLax as a laxative that has been sent to your pharmacy. You may take 17 g dissolved in water/liquid as needed for constipation. Colace has been sent to your pharmacy. This is a stool softener. Take this as needed for constipation. If you do not pass a bowel movement within the next few days please return to the emergency department. If symptoms persist or worsen, you develop fever or are unable to urinate please return to the emergency department. In case of an emergency call 911. You have also been provided with a referral to a urologist. You may call them to make an appointment. They will not call you. Follow-up with your primary care provider as needed. Prescriptions: New cephalexin 500 mg capsule 500 mg PO BID 7 Days Qty: 14 0RF polyethylene glycol 3350 [Miralax] 17 gram/dose powder 17 g PO DAILY 4 Days Qty: 68 0RF docusate sodium [Colace] 100 mg capsule 100 mg PO DAILY Qty: 10 0RF No Action omeprazole 20 mg capsule,delayed release(DR/EC) 20 mg PO DAILY Qty: 90 1RF omega-3 fatty acids PO nitrofurantoin monohyd/m-cryst [Macrobid] 100 mg capsule 100 mg PO Q12H 5 Days Qty: 10 0RF Rx Instructions: must administer with a meal/food cholecalciferol (vitamin D3) 50 mcg (2,000 unit) capsule 50 mcg PO DAILY Referrals: [facility] [place] Urology Services [Provider Group]
[2023-07-02 10:03] LABS: MANUAL DIFF FLAG NO
[2023-07-02 10:21] LABS: Basophils Absolute Auto 0.1 X10*3/uL (0.0-0.2); Basophils Percent Auto 0.4 % (0-2); Eosinophils Absolute Auto 0.1 X10*3/uL (0.0-0.4); Eosinophils Percent Auto 1.2 % (0-4); Hematocrit 42.7 % (37.0-47.0); Hemoglobin 14.4 g/dl (12.0-16.0); Imm Gran Abs Auto 0.05 X10*3/uL (0.00-0.03); Imm Gran Pct Auto 0.4 % (0.0-0.4); Lymphocytes Absolute Auto 1.6 X10*3/uL (1.2-4.9); Lymphocytes Percent Auto 13.5 % (20-40); Mean Corpuscular HGB Conc 33.7 g/dl (31.0-35.0); Mean Corpuscular Hemoglobin 29.9 pg (27.0-33.0); Mean Corpuscular Volume 88.8 fL (80.0-98.0); Mean Platelet Volume 10.5 fL (9.4-12.3); Monocytes Absolute Auto 0.7 X10*3/uL (0.1-1.2); Monocytes Percent Auto 5.9 % (2-11); Neutrophils Absolute Auto 9.3 x10*3/uL (2.0-8.3); Neutrophils Percent Auto 78.6 % (45-73); Platelet Count 276 X10*3/uL (160-400); Red Blood Count 4.81 X10*6/uL (4.20-5.50); White Blood Count 11.8 X10*3/uL (4.8-10.8)
[2023-07-02 10:37] LABS: Alanine Aminotransferase 18 U/L (0-31); Albumin Level 4.1 g/dL (3.5-5.0); Alkaline Phosphatase 62 U/L (39-117); Anion Gap 14 (12-20); Aspartate Amino Transferase 18 U/L (5-31); Bilirubin Total 0.7 mg/dL (0.0-1.0); Blood Urea Nitrogen 10 mg/dL (9-16); Calcium 9.2 mg/dL (8.4-10.2); Carbon Dioxide 26 mmol/L (22-29); Chloride 104 mmol/L (96-108); Creatinine Clr Calc Pharmacy 69.8; Estimated Glomerular Filt Rate > 60; Glucose Random 102 mg/dL (60-115); Lipase 15 U/L (8-78); Magnesium 1.8 mg/dL (1.6-2.6); Sodium 140 mmol/L (135-145)
== END 2023-07-02 12:00 | disposition home or self-care (01) ==
PROVIDERS: Physician Assistant Medical; Emergency Provider Emergency Medicine; PCP Internal Medicine
DX: N39.0 Urinary tract infection, site not specified (principal); N21.0 Calculus in bladder; E78.5 Hyperlipidemia, unspecified; Z85.3 Personal history of malignant neoplasm of breast
CPT/HCPCS: 36415; 51798; 74176; 80053; 81001; 82550; 83690; 83735; 85025; 87086; 99284

== ENCOUNTER 2023-08-10 11:22 | Outpatient (AMB) | payer MEDICARE, SELFPAY ==
[2023-08-10 11:35] VITALS: BP 128/74; PULSE 59; O2SAT 97; BMI 28.7
--- NOTE | 2023-08-10 11:35 | MHC.PC.OV ---
Vital Signs 08/10/23 11:35 Height 5 ft 6 in Weight 178 lb BMI 28.7 BP 128/74 Blood Pressure Location Lt brachial Position Sitting Pulse 59 Pulse Source Pulse Oximeter Pulse Oximetry (%) 97 Oxygen Delivery Method Room Air Intake Visit Reasons: intermittent chest heaviness Intake Note: Pt is here today for a sick. Pt c/o intermittent chest heaviness. Allergies No Known Allergies Allergy (Verified 08/10/23 11:38) Medication List - Last Reconciled 08/10/23 by Bisi Bolanos MD cholecalciferol (vitamin D3) 50 mcg PO DAILY docusate sodium (Colace) 100 mg PO DAILY omega-3 fatty acids (Fish Oil) PO omeprazole 20 mg PO DAILY polyethylene glycol 3350 (Miralax) 17 grams PO DAILY 4 days Tobacco use date assessed: 08/10/23 Fall risk assessment: No Falls in past year Last assessed Fall Risk: 08/10/23 Dental Screening Dental Screen Date: 08/10/23 Did you have a dental visit in the last 12 months?: Yes Did you have a dental problem in the last 6 months where you did not have access to dental care?: No Was dental information given to patient?: Patient has dentist HPI intermittent chest heaviness HPI Details Pt presents for f/u . She complains of episodes of heartburn after drinking coffee or eating fried fatty foods. Patient has been taking Omeprazole, 20 mg daily but was told by GI to increase it to twice a day if she has persistent symptoms. Patient denies odynophagia dysphagia abdominal pain nausea vomiting. Pt exercises regularly at least 3 times at [facility] in cardio and weightlifting occasionally increasing the heart rate up to 170. Patient denies exercise induced chest pain or shortness of breath. She would episode of gross hematuria with dysuria in Juneand was treated for UTIs twice. CT of the abdomen pelvis was consistent with small bladder calcification question of stone. She has an appointment with Urology. [facility] Medical History Annual physical exam Carotid bruit Chest tightness Hyperglycemia Myalgia Postmenopausal Abnormal colonoscopy Plantar fasciitis Hyperlipidemia GERD (gastroesophageal reflux disease) History of breast cancer Surgical History History of tonsillectomy History of lumpectomy of right breast Family History Father No problems noted. Mother Mental health disorder Brother Pancreatic cancer Brother No problems noted. Brother Substance use disorder Son No problems noted. Daughter No problems noted. Social History Housing: House Alcohol intake: current Alcohol intake frequency: a few times a month Patient Tobacco Use Status: Never used Tobacco e-Cigarette/Vaping Use: Never Used Advance Directives Date on File: 09/06/19 Current occupational status: retired Cognitive needs: No Hearing needs: No Vision needs: Yes Questionnaire PHQ-9 Over the last 2 weeks, how often have you been bothered by any of the following problems? 1. Little interest or pleasure in doing things: not at all 2. Feeling down, depressed, or hopeless: not at all 3. Trouble falling or staying asleep, or sleeping too much: not at all 4. Feeling tired or having little energy: not at all 5. Poor appetite or overeating: not at all 6. Feeling bad about yourself - or that you are a failure or have let yourself or your family down: not at all 7. Trouble concentrating on things, such as reading the newspaper or watching television: not at all 8. Moving or speaking so slowly that other people could have noticed. Or the opposite - being so fidgety or restless that you have been moving around a lot more than usual: not at all 9. Thoughts that you would be better off or of hurting yourself in some way: not at all Total score: 0 Depression Screening Interpretation: Negative Depression Screening Done: Yes Source: Developed by Drs. Vinicio Win, Sheryl Delaney, Sameer Russell and colleagues, with an educational janiya from [employer]. Thrive Questionnaire Date Thrive assessed: 08/10/23 I am a: Patient What is your living situation today?: I have a steady place to live Within the past 12 months, did the food you bought not last and you didn't have the money to get more?: Never true Within the past 12 months, did you worry whether your food would run out before you got money to buy more?: Never true Do you have trouble paying for medicines?: No Do you have trouble getting transportation to medical appointments?: No Do you have trouble paying your heating and electricity bill?: No Do you have trouble taking care of your child, family member or friend?: No Do you have trouble with day-to-day activities such as bathing, preparing meals, shopping, managing finances, etc.?: No Are you currently unemployed and looking for a job?: No Are you interested in more education?: No Please select the resources that you would like help with: None Currently or been in a relationship where the following occur: no concerns reported THRIVE Score: 0 AUDIT C Alcohol Use Questionnaire (AUDIT-C) 1. How often do you have a drink containing alcohol?: Monthly or less 2. How many drinks containing alcohol do you have on a typical day when you are drinking?: 1 or 2 3. How often do you have six or more drinks on one occasion?: Never Total Score: 1 ZHANE-7 AMB Questionnaire ZHANE-7 Date ZHANE - 7 assessed: 08/10/23 Feeling nervous, anxious, or on edge: 0 = Not at all Not being able to stop or control worryin = Not at all Worrying too much about different things: 0 = Not at all Trouble relaxin = Not at all Being so restless that it is hard to sit still: 0 = Not at all Becoming easily annoyed or irritable: 0 = Not at all Feeling afraid as if something awful might happen: 0 = Not at all Total ZHANE-7 score (0-4 normal; 5-9 mild; 10-14 moderate; 15-21 severe): 0 Source: Developed by Drs. Vinicio Win, Sheryl Delaney, Sameer Russell and colleagues, with an educational janiya from [employer]. Review of Systems Const All systems reviewed & are unremarkable except as noted in HPI and below Reports no additional complaints Eyes Reports no additional complaints ENT Reports no additional complaints Card Reports no additional complaints Resp Reports no additional complaints GI Reports no additional complaints Reports no additional complaints Physical exam (Primary Care) Vital Signs: Last Vital Signs Pulse 59 08/10/23 11:35 BP 128/74 08/10/23 11:35 Pulse Ox 97 08/10/23 11:35 Oxygen Delivery Method Room Air 08/10/23 11:35 BMI result Body Mass Index 28.7 Tobacco/Smoking Status: Tobacco use Status Tobacco use date assessed 08/10/23 08/10/23 11:43 Patient Tobacco Use Status Never used Tobacco 08/10/23 11:43 e-Cigarette/Vaping Use Never Used 08/10/23 11:43 PHQ-9: PHQ-9 Score PHQ-9: Total score 0 08/10/23 11:43 Depression Screening Interpretation: Negative Thrive Assessment: Date of Thrive Assessment Date Thrive assessed 08/10/23 08/10/23 11:43 Currently or been in a relationship where the following occur: no concerns reported Const General: no acute distress HENMT Head: Yes normal to inspection Ears: hearing grossly normal bilaterally Face and sinus: Yes normal facial exam Eyes General: appearance normal, both eyes and all related structures Neck Neck: Yes no lymphadenopathy and Yes supple Resp Effort & Inspection: normal respiratory effort Auscultation: clear to auscultation bilaterally Cardio Rhythm: regular rhythm Heart sounds: S1 normal heart sound present and S2 normal heart sound present GI Inspection: Yes normal to inspection Palpation (GI): Soft to palpation Percussion: Yes normal to percussion Auscultation: normal bowel sounds Assessment and Plan Assessment & Plan (1) Hematuria: Code(s): R31.9 - Hematuria, unspecified Plan: repeat UA and culture and f/u with urology (2) GERD (gastroesophageal reflux disease): Comment: EGD 05/2020, esophagitis Code(s): K21.9 - Gastro-esophageal reflux disease without esophagitis Plan: Continue PPI, Anti GERD diet discussed with the patient she was advised to record her food intake and related GERD symptoms, follow-up in 2 months Orders: Orders UA w Microscopic Today N30.00 - Acute cystitis without hematuria Urine Culture Today N30.00 - Acute cystitis without hematuria Coding Level of Care Code Est Pt Level 3 (40323) Diagnoses Hematuria R31.9 GERD (gastroesophageal reflux disease) K21.9
== END 2023-08-10 13:26 | disposition home or self-care (01) ==
PROVIDERS: PCP Internal Medicine; Visit Provider Internal Medicine
DX: R31.9 Hematuria, unspecified (principal); K21.9 Gastro-esophageal reflux disease without esophagitis
CPT/HCPCS: 99213

== ENCOUNTER 2023-08-10 12:23 | Outpatient (REF) | payer MEDICARE, SELFPAY ==
[2023-08-10 15:04] LABS: Appearance Urine Clear; Color Urine Yellow; Glucose Urine UA Negative (Negative); Leukocyte Esterase Urine Negative (Negative); Nitrite Urine Negative (Negative); Specific Gravity - Urine <= 1.005 (1.005-1.025); Urine Blood Negative (Negative); Urine Ketones Negative (Negative); Urine Protein Negative (Neg-Trace)
[2023-08-10 17:27] LABS: Bacteria Urine None Seen (None Seen); Hyaline Casts Urine 0-2 /LPF (0-2); RBC Urine 0-2 /HPF (0-2); Squamous Epithelial Cell Urine 0-2 /HPF (0-2); WBC Urine 0-5 /HPF (0-5)
== END 2023-08-10 12:24 | disposition home or self-care (01) ==
LOC: HO.HMGCLDS 12:23
PROVIDERS: PCP Internal Medicine; Visit Provider Internal Medicine
DX: N30.00 Acute cystitis without hematuria (principal)
CPT/HCPCS: 81001; 87086

== ENCOUNTER 2023-08-15 13:39 | Outpatient (AMB) | payer MEDICARE, SELFPAY ==
--- NOTE | 2023-08-15 13:50 | A.OFFVIS_ITS ---
Intake Intake Visit Reasons: hx of stone/UTI Intake Note: NEW Patient presents today to established treatment for Hx of Kidney Stones & UTI: Meds- None Allergies to Antibiotic- No Known Allergies Blood Thinner- None Therapeutic Support Staff Required: No Accompanied by: Self / Same As Patient Allergies No Known Allergies Allergy (Verified 08/15/23 14:08) HPI HPI Comments History of Present Illness Details Alisia is a 77-year-old female who is here for evaluation due to kidney stone. The patient has a pmhx significant for polymyalgia rheumatica, HDL, breast cancer S/P chemo and radiation therapy with lumpectomy, GERD, she presented to the ED on 07/02/2023 with complaints of dysuria, urinary frequency/urgency, and blood-tinged urine, bilateral flank pain x1 day. Patient was diagnosed with a urinary tract infection approximately 3 weeks prior and completed a course of nitrofurantoin prescribed by urgent care with symptom resolution. A CT abdomen and pelvis without contrast was performed in the ED noting a 1 mm calcification Right UVJ, kidneys within normal limits, no hydronephrosis. She complains of persistent dysuria. Plan continue Flomax, urine culture, follow-up office cystoscopy. [facility] Medical History Annual physical exam Carotid bruit Chest tightness Hyperglycemia Myalgia Postmenopausal Abnormal colonoscopy Plantar fasciitis Hyperlipidemia GERD (gastroesophageal reflux disease) History of breast cancer Surgical History History of tonsillectomy History of lumpectomy of right breast Family History Father No problems noted. Mother Mental health disorder Brother Pancreatic cancer Brother No problems noted. Brother Substance use disorder Son No problems noted. Daughter No problems noted. Social History Housing: House Alcohol intake: current Alcohol intake frequency: a few times a month Patient Tobacco Use Status: Never used Tobacco e-Cigarette/Vaping Use: Never Used Advance Directives Date on File: 09/06/19 Current occupational status: retired Cognitive needs: No Hearing needs: No Vision needs: Yes Review of Systems Const All systems reviewed & are unremarkable except as noted in HPI and below Reports no additional complaints Eyes Reports no additional complaints ENT Reports no additional complaints Card Denies dyspnea Resp Denies cough and Denies dyspnea GI Reports no additional complaints Reports no additional complaints Musc Reports no additional complaints Skin/Breast Denies rash and Denies unusual bruising Neuro Reports no additional complaints Psych Reports no additional complaints Endo Reports no additional complaints Peña/Lymph Reports no additional complaints Aller/Immun Reports no additional complaints Physical Exam Const General: cooperative, healthy appearing and no acute distress Orientation/consciousness: patient oriented x3 HEENT Head: Yes normal to inspection, Yes normocephalic and Yes atraumatic Eyes Conjunctivae: conjunctivae normal Neck Neck: Yes normal visual inspection and Yes trachea midline Chest Chest palpation & inspection: normal inspection of the chest Resp Effort & Inspection: normal respiratory effort Cardio Rate: regular rate GI Inspection: Yes normal to inspection Palpation (GI): Soft to palpation Skin General skin exam: no rashes or lesions noted Neuro General: patient oriented x3 Extrem General: No edema Psych Appearance: grossly normal Results AMB Urinalysis, Automated UA Leukoctes 125 Christie/uL Last Edit by MAC Khanna on 08/15/23 14:15 2+ Holli Gr 08/15/23 14:15 UA Nitrite Negative Last Edit by MAC Khanna on 08/15/23 14:15 UA Urobilinogen 0.2 mg/dL Last Edit by MAC Khanna on 08/15/23 14:1 5 UA Protein 0 mg/dL Last Edit by MAC Khanna on 08/15/23 14:15 UA pH 6.0 Last Edit by MAC Khanna on 08/15/23 14:15 UA Blood 0 Joshua/uL Last Edit by MAC Khanna on 08/15/23 14:15 UA Specific [place] 1.010 Last Edit by MAC Khanna on 08/15/23 14: 15 UA Ketone Negative Last Edit by MAC Khanna on 08/15/23 14:15 UA Bilirubin 0 mg/dL Last Edit by MAC Khanna on 08/15/23 14:15 UA Glucose 0 mg/dL Last Edit by MAC Khanna on 08/15/23 14:15 Results Reviewed Results Reviewed: Laboratory Last Values Urine pH (Auto) 6.0 08/15/23 14:14 Specific [place] (Auto) 1.010 08/15/23 14:14 Urine Protein (Auto) 0 mg/dL 08/15/23 14:14 Glucose (UA)(Auto) 0 mg/dL 08/15/23 14:14 Urine Ketones (Auto) Negative 08/15/23 14:14 Urine Blood (Auto) 0 Joshua/uL 08/15/23 14:14 Urine Nitrite (Auto) Negative 08/15/23 14:14 Urine Bilirubin (Auto) 0 mg/dL 08/15/23 14:14 Urine Urobilinogen (Auto) 0.2 mg/dL 08/15/23 14:14 Leukocyte Esterase (Auto) 125 Christie/uL 08/15/23 14:14 Date of Service: 07/02/23 EXAMINATION: CT ABDOMEN AND PELVIS WITHOUT CONTRAST CLINICAL INFORMATION: UTI with hematuria.. Evaluate for stones. COMPARISON: Ultrasound abdomen 05/17/2022. TECHNIQUE: Multidetector volumetric imaging was performed from the superior aspect of the liver through the pubic symphysis. Sagittal and coronal reformatted images were obtained on the technologist's workstation. This CT examination was performed using dose optimization techniques as appropriate, variously including the following: *Automated exposure control *Adjustment of mA and/or kV according to patient size (this includes techniques or standardized protocols for targeted exams where dose is matched to indication/reason for exam; i.e. extremities or head) *Use of iterative reconstruction technique DLP: 656 mGy-cm FINDINGS: LUNG BASES: The visualized lung bases are unremarkable. LIVER, GALLBLADDER, AND BILIARY TREE: The liver is normal in size, shape, and attenuation. No focal hepatic lesion or biliary ductal dilatation is present. The gallbladder is unremarkable with no evidence of radiopaque gallstones, gallbladder wall thickening, or obvious pericholecystic inflammatory changes. PANCREAS: Unremarkable. SPLEEN: Unremarkable. ADRENAL GLANDS: Unremarkable. KIDNEYS AND URETERS: The kidneys are normal in size, shape, and attenuation. No hydronephrosis, hydroureter, or calculi seen. No perinephric stranding. BLADDER: There is a 1 mm dependent radiopaque or hypodensity to the right of right UVJ on axial slice 68/3. This may be represent a stone just past. GASTROINTESTINAL TRACT: There is scattered stool and gas seen throughout the colon without distention. The small bowel loops are normal caliber. Appendix is normal caliber. The stomach is nondistended. No free air or free fluid. ABDOMINAL WALL: A small umbilical hernia containing fat is noted. LYMPH NODES: Normal. VASCULAR: Unremarkable. PELVIC VISCERA: The uterus is anteverted and appears unremarkable. No adnexal mass or free fluid seen. There is no abnormal pelvic or inguinal lymph nodes. OSSEOUS STRUCTURES: Mild degenerative disc changes L4-L5 disc level with endplate sclerosis. No aggressive lytic or sclerotic process seen. There is grade 1 anterolisthesis L3 over L4. IMPRESSION: 1 mm punctate hyper density along the dependent portion of right bladder lateral to the right UVJ. Question tiny stone versus calcification. There is no hydroureteronephrosis seen Moderate constipation. Assessment & Plan Assessment & Plan (1) Hematuria: Code(s): R31.9 - Hematuria, unspecified (2) UTI (urinary tract infection): Code(s): N39.0 - Urinary tract infection, site not specified (3) Right flank pain: Code(s): R10.9 - Unspecified abdominal pain (4) Ureteral stone: Code(s): N20.1 - Calculus of ureter Plan Flomax. Urine culture. Follow-up office cystoscopy Orders: Orders AMB Urinalysis Automated 08/15/23 Z13.9 - Encounter for screening, unspecified Urine Culture 08/15/23 N39.0 - Urinary tract infection, site not specified Medications: New tamsulosin (Flomax) 0.4 mg PO BEDTIME 14 caps 0RF to help pass urinary stone Patient Instructions: The patient had an opportunity to ask questions regarding treatment plan. All questions were answered. Imaging, Laboratory studies and physical exam results were discussed and reviewed in detail. No major barriers to understanding were identified. The patient expressed understanding and agreement with the above treatment plan. The patient is aware they should contact our office by phone for worsening of their current condition or the appearance of new symptoms. Compliance is encouraged with any medications and followup testing that is ordered. It is a privilege to be allowed the opportunity to participate in the urologic care of your patient. If you have any questions or concerns regarding treatment for the above conditions please do not hesitate to contact me. The office telephone contact is [phone]. This note is constructed in part using voice recognition software. While every effort has been made to ensure accuracy bird trapper errors may have been included. Yours sincerely, Bj Carter MD Coding Level of Care Code New Pt Level 3 (45904) Diagnoses Hematuria R31.9 UTI (urinary tract infection) N39.0 Right flank pain R10.9 Ureteral stone N20.1
== END 2023-08-15 14:59 | disposition home or self-care (01) ==
PROVIDERS: PCP Internal Medicine; Visit Provider Urology
DX: R31.9 Hematuria, unspecified (principal); N39.0 Urinary tract infection, site not specified; R10.9 Unspecified abdominal pain; N20.1 Calculus of ureter
CPT/HCPCS: 99203

== ENCOUNTER 2023-08-15 13:39 | Outpatient (REF) | payer MEDICARE, SELFPAY | END 2023-08-15 13:40 | disposition home or self-care (01) | LOC: HO.LAB 13:39 | PROVIDERS: PCP Internal Medicine; Visit Provider Urology | DX: N39.0 Urinary tract infection, site not specified (principal); Z87.442 Personal history of urinary calculi | CPT/HCPCS: 81003; 87086; 87088; 87186; 99202 ==

== ENCOUNTER 2023-09-20 09:03 | Outpatient (REF) | payer MEDICARE, SELFPAY | END 2023-09-20 09:04 | disposition home or self-care (01) | LOC: HO.HMGCLDS 09:03 | PROVIDERS: PCP Internal Medicine; Visit Provider Urology | DX: N39.0 Urinary tract infection, site not specified (principal) | CPT/HCPCS: 87086 ==

== ENCOUNTER 2023-10-28 10:20 | Outpatient (AMB) | payer MEDICARE, SELFPAY ==
--- NOTE | 2023-10-28 10:48 | MHC.OFFVIS ---
Intake Visit Reasons: cysto Intake Note: Patient presents today for a CYSTOSCOPY Procedure: Meds: Tamsulosin Allergies to Antibiotic: No Known Allergies Blood Thinner: None Urinalysis test clear for Cysto? YES Disposable Uro-G HD Cystoscope Cannula: Lot: [id number] Exp: 06/09/2026 Visualization Developer Required: No Accompanied by: Self / Same As Patient Allergies No Known Allergies Allergy (Verified 11/07/23 10:43) HPI Comments Details: 10/28/23--Alisia is here for office cystoscopy. Cystoscopy findings: No suspicious lesions, bladder WNL Review of chart: 08/15/23--Alisia is a 77-year-old female who is here for evaluation due to kidney stone. The patient has a pmhx significant for polymyalgia rheumatica, HDL, breast cancer S/P chemo and radiation therapy with lumpectomy, GERD, she presented to the ED on 07/02/2023 with complaints of dysuria, urinary frequency/urgency, and blood-tinged urine, bilateral flank pain x1 day. Patient was diagnosed with a urinary tract infection approximately 3 weeks prior and completed a course of nitrofurantoin prescribed by urgent care with symptom resolution. A CT abdomen and pelvis without contrast was performed in the ED noting a 1 mm calcification Right UVJ, kidneys within normal limits, no hydronephrosis. She complains of persistent dysuria. Plan continue Flomax, urine culture, follow-up office cystoscopy. 10/29/23-- FU one year -Renal US prior [facility] Medical History (Updated 11/24/23 @ 00:26 by Bj Carter MD) Annual physical exam Carotid bruit Chest tightness Hyperglycemia Myalgia Postmenopausal Abnormal colonoscopy Plantar fasciitis Hyperlipidemia GERD (gastroesophageal reflux disease) History of breast cancer Surgical History History of tonsillectomy History of lumpectomy of right breast Family History Father No problems noted. Mother Mental health disorder Brother Pancreatic cancer Brother No problems noted. Brother Substance use disorder Son No problems noted. Daughter No problems noted. Social History (Reviewed 11/07/23 @ 10:45 by BAKARI Martínez Housing: House Alcohol intake: current Alcohol intake frequency: a few times a month Patient Tobacco Use Status: Never used Tobacco e-Cigarette/Vaping Use: Never Used Advance Directives Date on File: 09/06/19 service: No Current occupational status: retired Cognitive needs: No Hearing needs: No Vision needs: Yes Review of Systems Const All systems reviewed & are unremarkable except as noted in HPI and below Reports no additional complaints Eyes Reports no additional complaints ENT Reports no additional complaints Card Reports no additional complaints Resp Reports no additional complaints GI Reports no additional complaints Reports as per HPI Musc Reports no additional complaints Skin/Breast Reports system reviewed and no additional complaints, except as documented Neuro Reports no additional complaints Psych Reports no additional complaints Endo Reports no additional complaints Peña/Lymph Reports no additional complaints Aller/Immun Reports no additional complaints Office Procedures Cystoscopy Consent Discussed risk and benefit or proposed procedure with the patient. Information consent for procedure given to the patient. Discussed technical aspects, risks, benefits and alternatives in full. Addressed all of the patient's questions and concerns regarding the procedure. The patient demonstrated knowledge and understanding. They wish to proceed with this procedure. Preparation The patient was prepped in the usual manner. A cdl bulk driver was present and in the room. Genitalia was prepped with betadine solution in a sterile manner. Lidocaine Jelly 2% was placed into the urethra and 16Fr flexible Olympus cystoscope was inserted into the meatus after adequate lubrication. Procedure Time out per protocol performed. Bladder Inspection Bladder Inspection: The bladder was inspected in its entirety with utilization retroflexion displaying: Tumor(s): N/A Trabeculation: present, mild Mucosal Erthema: N/A Orifices: normal shape and position Urethra: normal Cystoscopy findings: no suspicious bladder lesions visualized [id number] DISPOSABLE SCOPE URO-G FLEXIBLE SCOPE Procedure code (CPT) selection complete Office Meds lidocaine HCl 2 % mucosal jelly in applicator Performing Provider: Bj Carter MD Performing Location[facility] Administered by: Jeffery Alva LPN on 10/28/23 11:06 Dose Route Admin Location Dispensed Lot Number Expiration Date ND Interior Design Project Manager 10 mL intra-urethral 20 mL naproxen 500 mg tablet Performing Provider: Bj Carter MD Performing Location: [facility] [place] Administered by: Jeffery Alva LPN on 10/28/23 11:06 Dose Route Admin Location Dispensed Lot Number Expiration Date NDC Interior Design Project Manager 500 mg PO 1 tab ciprofloxacin HCl 500 mg tablet Performing Provider: Bj Carter MD Performing Location: [facility] [place] [facility] Administered by: Jeffery Alva LPN on 10/28/23 11:06 Dose Route Admin Location Dispensed Lot Number Expiration Date NDC Interior Design Project Manager 500 mg PO 1 tab Results AMB Urinalysis, Automated UA Leukoctes 0 Christie/uL Last Edit by MAC Khanna on 10/28/23 11:11 UA Nitrite Negative Last Edit by MAC Khanna on 10/28/23 11:11 UA Urobilinogen 0.2 mg/dL Last Edit by MAC Khanna on 10/28/23 11:11 UA Protein 0 mg/dL Last Edit by MAC Khanna on 10/28/23 11:11 UA pH 6.5 Last Edit by MAC Khanna on 10/28/23 11:11 UA Blood 0 Joshua/uL Last Edit by MAC Khanna on 10/28/23 11:11 UA Specific [place] 1.010 Last Edit by MAC Khanna on 10/28/23 11:11 UA Ketone Negative Last Edit by MAC Khanna on 10/28/23 11:11 UA Bilirubin 0 mg/dL Last Edit by MAC Khanna on 10/28/23 11:11 UA Glucose 0 mg/dL Last Edit by MAC Khanna on 10/28/23 11:11 Results Reviewed Results Reviewed: Laboratory Last Values Urine pH (Auto) 6.5 10/28/23 11:03 Specific [place] (Auto) 1.010 10/28/23 11:03 Urine Protein (Auto) 0 mg/dL 10/28/23 11:03 Glucose (UA)(Auto) 0 mg/dL 10/28/23 11:03 Urine Ketones (Auto) Negative 10/28/23 11:03 Urine Blood (Auto) 0 Joshua/uL 10/28/23 11:03 Urine Nitrite (Auto) Negative 10/28/23 11:03 Urine Bilirubin (Auto) 0 mg/dL 10/28/23 11:03 Urine Urobilinogen (Auto) 0.2 mg/dL 10/28/23 11:03 Leukocyte Esterase (Auto) 0 Christie/uL 10/28/23 11:03 Date of Service: 07/02/23 EXAMINATION: CT ABDOMEN AND PELVIS WITHOUT CONTRAST CLINICAL INFORMATION: UTI with hematuria.. Evaluate for stones. COMPARISON: Ultrasound abdomen 05/17/2022. TECHNIQUE: Multidetector volumetric imaging was performed from the superior aspect of the liver through the pubic symphysis. Sagittal and coronal reformatted images were obtained on the technologist's workstation. This CT examination was performed using dose optimization techniques as appropriate, variously including the following: *Automated exposure control *Adjustment of mA and/or kV according to patient size (this includes techniques or standardized protocols for targeted exams where dose is matched to indication/reason for exam; i.e. extremities or head) *Use of iterative reconstruction technique DLP: 656 mGy-cm FINDINGS: LUNG BASES: The visualized lung bases are unremarkable. LIVER, GALLBLADDER, AND BILIARY TREE: The liver is normal in size, shape, and attenuation. No focal hepatic lesion or biliary ductal dilatation is present. The gallbladder is unremarkable with no evidence of radiopaque gallstones, gallbladder wall thickening, or obvious pericholecystic inflammatory changes. PANCREAS: Unremarkable. SPLEEN: Unremarkable. ADRENAL GLANDS: Unremarkable. KIDNEYS AND URETERS: The kidneys are normal in size, shape, and attenuation. No hydronephrosis, hydroureter, or calculi seen. No perinephric stranding. BLADDER: There is a 1 mm dependent radiopaque or hypodensity to the right of right UVJ on axial slice 68/3. This may be represent a stone just past. GASTROINTESTINAL TRACT: There is scattered stool and gas seen throughout the colon without distention. The small bowel loops are normal caliber. Appendix is normal caliber. The stomach is nondistended. No free air or free fluid. ABDOMINAL WALL: A small umbilical hernia containing fat is noted. LYMPH NODES: Normal. VASCULAR: Unremarkable. PELVIC VISCERA: The uterus is anteverted and appears unremarkable. No adnexal mass or free fluid seen. There is no abnormal pelvic or inguinal lymph nodes. OSSEOUS STRUCTURES: Mild degenerative disc changes L4-L5 disc level with endplate sclerosis. No aggressive lytic or sclerotic process seen. There is grade 1 anterolisthesis L3 over L4. IMPRESSION: 1 mm punctate hyper density along the dependent portion of right bladder lateral to the right UVJ. Question tiny stone versus calcification. There is no hydroureteronephrosis seen. Moderate constipation. Assessment & Plan Assessment & Plan (1) Hematuria: Comment: Negative cystoscopy 10/2023 Code(s): R31.9 - Hematuria, unspecified Category: Medical (2) UTI (urinary tract infection): Code(s): N39.0 - Urinary tract infection, site not specified Category: Medical (3) Ureteral stone: Code(s): N20.1 - Calculus of ureter Category: Medical (4) History of kidney stones: Code(s): Z87.442 - Personal history of urinary calculi Category: Medical Plan FU one year -Renal US prior Orders: Orders AMB Urinalysis Automated 10/28/23 Z13.9 - Encounter for screening, unspecified AMB Cystoscopy 10/28/23 N39.0 - Urinary tract infection, site not specified, R31.9 - Hematuria, unspecified US renal BI 11/03/23 N39.0 - Urinary tract infection, site not specified, R31.9 - Hematuria, unspecified Patient Instructions: The patient had an opportunity to ask questions regarding treatment plan. The patient expressed understanding and agreement with the above treatment plan. The patient is aware they should contact our office by phone for worsening of their current condition or the appearance of new symptoms. Compliance is encouraged with any medications and followup testing that is ordered. It is a privilege to be allowed the opportunity to participate in the urologic care of your patient. If you have any questions or concerns regarding treatment for the above conditions please do not hesitate to contact me. The office telephone contact is [phone]. This note is constructed in part using voice recognition software. While every effort has been made to ensure accuracy dairy cattle farm manager errors may have been included. Yours sincerely, Bj Carter MD Coding Level of Care Code Procedure Only Diagnoses Hematuria R31.9 UTI (urinary tract infection) N39.0 Ureteral stone N20.1 History of kidney stones Z87.442 CPT Codes Cystoscopy - CPT: [id number] ([id number])
== END 2023-10-28 11:49 | disposition home or self-care (01) ==
PROVIDERS: PCP Internal Medicine; Visit Provider Urology
DX: N39.0 Urinary tract infection, site not specified (principal); R31.9 Hematuria, unspecified; Z13.9 Encounter for screening, unspecified
CPT/HCPCS: 52000

== ENCOUNTER → 2023-10-28 10:20 | Outpatient (BNVA) | payer MEDICARE, SELFPAY | PROVIDERS: PCP Internal Medicine; Visit Provider Urology | DX: N39.0 Urinary tract infection, site not specified (principal); N20.1 Calculus of ureter; R31.9 Hematuria, unspecified; Z87.442 Personal history of urinary calculi | CPT/HCPCS: 52000; 81003 ==

== ENCOUNTER 2023-11-07 10:17 | Outpatient (AMB) | payer MEDICARE, SELFPAY ==
--- NOTE | 2023-11-07 10:40 | A.OFFPC_ITS ---
Vital Signs 11/07/23 10:41 Height 5 ft 6 in Weight 175 lb BMI 28.2 BP 122/78 Blood Pressure Location Lt brachial Position Sitting Pulse 60 Pulse Source Pulse Oximeter Pulse Oximetry (%) 96 Oxygen Delivery Method Room Air Intake Visit Reasons: 3 month follow up Intake Note: Pt is here today for 3 months follow up visit Allergies No Known Allergies Allergy (Verified 11/07/23 10:43) Medication List - Last Reconciled 11/07/23 by Bisi Bolanos MD cholecalciferol (vitamin D3) 50 mcg PO DAILY docusate sodium (Colace) 100 mg PO DAILY omega-3 fatty acids (Fish Oil) PO omeprazole 20 mg PO DAILY polyethylene glycol 3350 (Miralax) 17 grams PO DAILY 4 days Tobacco use date assessed: 11/07/23 Dental Screening Dental Screen Date: 08/10/23 HPI 3 month follow up HPI Details Pt presents for f/u GERD mostly controlled on PPI but occasionally complains of heartburn, Pt denies odynophagia and dysphagia. She will have EGD and colonoscopy with Dr. Keane next year. Patient had cystoscopy for microscopic hematuria which was negative. Patient passed a small kidney stone and was told to follow low oxalate diet. She has been following low-cholesterol diet for hyperlipidemia. [facility] Medical History (Updated 11/07/23 @ 11:45 by Bisi Bolanos MD) Annual physical exam Carotid bruit Chest tightness Hyperglycemia Myalgia Postmenopausal Abnormal colonoscopy Plantar fasciitis Hyperlipidemia GERD (gastroesophageal reflux disease) History of breast cancer Surgical History History of tonsillectomy History of lumpectomy of right breast Family History Father No problems noted. Mother Mental health disorder Brother Pancreatic cancer Brother No problems noted. Brother Substance use disorder Son No problems noted. Daughter No problems noted. Social History Housing: House Alcohol intake: current Alcohol intake frequency: a few times a month Patient Tobacco Use Status: Never used Tobacco e-Cigarette/Vaping Use: Never Used Advance Directives Date on File: 09/06/19 service: No Current occupational status: retired Cognitive needs: No Hearing needs: No Vision needs: Yes Questionnaire Thrive Questionnaire Date Thrive assessed: 08/10/23 AUDIT C Alcohol Use Questionnaire (AUDIT-C) 1. How often do you have a drink containing alcohol?: Monthly or less 2. How many drinks containing alcohol do you have on a typical day when you are drinking?: 1 or 2 3. How often do you have six or more drinks on one occasion?: Never Total Score: 1 ZHANE-7 AMB Questionnaire ZHANE-7 Date ZHANE - 7 assessed: 08/10/23 Feeling nervous, anxious, or on edge: 0 = Not at all Not being able to stop or control worryin = Several days Worrying too much about different things: 1 = Several days Trouble relaxin = Not at all Being so restless that it is hard to sit still: 0 = Not at all Becoming easily annoyed or irritable: 0 = Not at all Feeling afraid as if something awful might happen: 0 = Not at all Total ZHANE-7 score (0-4 normal; 5-9 mild; 10-14 moderate; 15-21 severe): 2 Source: Developed by Drs. Vinicio Win, Sheryl Delaney, Sameer Russell and colleagues, with an educational janiya from [employer]. Review of Systems Const All systems reviewed & are unremarkable except as noted in HPI and below Reports no additional complaints Eyes Reports no additional complaints ENT Reports no additional complaints Card Reports no additional complaints Resp Reports no additional complaints GI Reports no additional complaints Physical exam (Primary Care) Vital Signs: Last Vital Signs Pulse 60 11/07/23 10:41 BP 122/78 11/07/23 10:41 Pulse Ox 96 11/07/23 10:41 Oxygen Delivery Method Room Air 11/07/23 10:41 BMI result Body Mass Index 28.2 Tobacco/Smoking Status: Tobacco use Status Tobacco use date assessed 11/07/23 11/07/23 10:46 Patient Tobacco Use Status Never used Tobacco 11/07/23 10:46 e-Cigarette/Vaping Use Never Used 11/07/23 10:46 Thrive Assessment: Date of Thrive Assessment Date Thrive assessed 08/10/23 11/07/23 10:46 Const General: no acute distress HENMT Head: Yes normal to inspection Face and sinus: Yes normal facial exam Eyes General: appearance normal, both eyes and all related structures Neck Neck: Yes supple Resp Effort & Inspection: normal respiratory effort Auscultation: clear to auscultation bilaterally Cardio Rhythm: regular rhythm Heart sounds: S1 normal heart sound present and S2 normal heart sound present GI Inspection: Yes normal to inspection Palpation (GI): Soft to palpation Percussion: Yes normal to percussion Auscultation: normal bowel sounds Assessment and Plan Assessment & Plan (1) Hyperlipidemia: Code(s): E78.5 - Hyperlipidemia, unspecified Plan: Continue low-cholesterol diet (2) Polymyalgia rheumatica: Comment: In remission follows up with rheumatology Code(s): M35.3 - Polymyalgia rheumatica (3) Hyperglycemia: Code(s): R73.9 - Hyperglycemia, unspecified Plan: Continue ADA diet regular physical activity (4) Annual physical exam: Code(s): Z00.00 - Encounter for general adult medical examination without abnormal findings (5) Postmenopausal: Code(s): Z78.0 - Asymptomatic menopausal state (6) Vitamin D deficiency: Code(s): E55.9 - Vitamin D deficiency, unspecified Plan: Continue vitamin-D supplement (7) Hematuria: Comment: Negative cystoscopy 10/2023 Code(s): R31.9 - Hematuria, unspecified (8) GERD (gastroesophageal reflux disease): Comment: EGD 05/2020, small hiatal hernia and esophagitis , due for EGD and colonoscopy in 2024 Code(s): K21.9 - Gastro-esophageal reflux disease without esophagitis Orders: Orders Comprehensive [place]. Panel Fast 5 Months E55.9 - Vitamin D deficiency, unspecified, E78.5 - Hyperlipidemia, unspecified, M35.3 - Polymyalgia rheumatica, R73.9 - Hyperglycemia, unspecified, Z00.00 - Encounter for general adult medical examination without abnormal findings, Z78.0 - Asymptomatic menopausal state Complete Blood Count Auto Diff 5 Months E55.9 - Vitamin D deficiency, unspecified, E78.5 - Hyperlipidemia, unspecified, M35.3 - Polymyalgia rheumatica, R73.9 - Hyperglycemia, unspecified, Z00.00 - Encounter for general adult medical examination without abnormal findings, Z78.0 - Asymptomatic menopausal state Vitamin D 25-OH Total 5 Months E55.9 - Vitamin D deficiency, unspecified, E78.5 - Hyperlipidemia, unspecified, M35.3 - Polymyalgia rheumatica, R73.9 - Hyperglycemia, unspecified, Z00.00 - Encounter for general adult medical examination without abnormal findings, Z78.0 - Asymptomatic menopausal state Lipid Panel 5 Months E55.9 - Vitamin D deficiency, unspecified, E78.5 - Hyperlipidemia, unspecified, M35.3 - Polymyalgia rheumatica, R73.9 - Hyperglycemia, unspecified, Z00.00 - Encounter for general adult medical examination without abnormal findings, Z78.0 - Asymptomatic menopausal state TSH reflex Free T4 5 Months E55.9 - Vitamin D deficiency, unspecified, E78.5 - Hyperlipidemia, unspecified, M35.3 - Polymyalgia rheumatica, R73.9 - Hyperglycemia, unspecified, Z00.00 - Encounter for general adult medical examination without abnormal findings, Z78.0 - Asymptomatic menopausal state Coding Level of Care Code Est Pt Level 4 (74742) Diagnoses Hyperlipidemia E78.5 Polymyalgia rheumatica M35.3 Hyperglycemia R73.9 Annual physical exam Z00.00 Postmenopausal Z78.0 Vitamin D deficiency E55.9 Hematuria R31.9 GERD (gastroesophageal reflux disease) K21.9
[2023-11-07 10:41] VITALS: BP 122/78; PULSE 60; O2SAT 96; BMI 28.2
== END 2023-11-07 11:45 | disposition home or self-care (01) ==
LOC: HO.HMGC 10:17
PROVIDERS: PCP Internal Medicine; Visit Provider Internal Medicine
DX: E78.5 Hyperlipidemia, unspecified (principal); M35.3 Polymyalgia rheumatica; R73.9 Hyperglycemia, unspecified; Z00.00 Encounter for general adult medical examination without abnormal findings; Z78.0 Asymptomatic menopausal state; E55.9 Vitamin D deficiency, unspecified; R31.9 Hematuria, unspecified; K21.9 Gastro-esophageal reflux disease without esophagitis
CPT/HCPCS: 99214

== ENCOUNTER → 2023-12-09 10:15 | Outpatient (AMB) | payer MEDICARE, SELFPAY ==
[2023-12-09 11:17] VITALS: BP 126/74; PULSE 72; TEMP 36.6; O2SAT 98; BMI 28.2
--- NOTE | 2023-12-09 11:17 | AM.OFFWIN_ITS ---
Intake Vital Signs 12/09/23 11:17 Height 5 ft 6 in Weight 175 lb BMI 28.2 BP 126/74 Blood Pressure Location Rt brachial Position Sitting Pulse 72 Pulse Source Pulse Oximeter Temp 97.8 F Temp Source Oral Pulse Oximetry (%) 98 Intake Visit Reasons: Ep right knee pain 2 weeks ago Intake Note: pt is here for right knee pain due to running on lawn 2 weeks ago Patient Tobacco Use Status: Never used Tobacco Allergies No Known Allergies Allergy (Verified 12/09/23 11:19) Do you need a note to return to daycare/school/sports/work: No HPI HPI Comments History of Present Illness Details 78 y/o female patient who presents to [facility] in clinic with c/o [facility] Medical History (Updated 11/24/23 @ 00:26 by Bj Carter MD) Annual physical exam Carotid bruit Chest tightness Hyperglycemia Myalgia Postmenopausal Abnormal colonoscopy Plantar fasciitis Hyperlipidemia GERD (gastroesophageal reflux disease) History of breast cancer Surgical History History of tonsillectomy History of lumpectomy of right breast Family History Father No problems noted. Mother Mental health disorder Brother Pancreatic cancer Brother No problems noted. Brother Substance use disorder Son No problems noted. Daughter No problems noted. Social History Housing: House Alcohol intake: current Alcohol intake frequency: a few times a month Patient Tobacco Use Status: Never used Tobacco e-Cigarette/Vaping Use: Never Used Advance Directives Date on File: 09/06/19 service: No Current occupational status: retired Cognitive needs: No Hearing needs: No Vision needs: Yes Review of Systems Const All systems reviewed & are unremarkable except as noted in HPI and below Physical Exam Vital Signs: Last Vital Signs Temp 97.8 F 12/09/23 11:17 Pulse 72 12/09/23 11:17 BP 126/74 12/09/23 11:17 Pulse Ox 98 12/09/23 11:17 BMI result Body Mass Index 28.2 Const General: comfortable and no acute distress Nutritional Appearance: overweight Orientation/consciousness: patient oriented x3 Neuro General: patient oriented x3, gait normal and moves all extremities Extrem Right lower extremity: knee Details: normal to inspection, tenderness Location: of the patella and of the medial joint line and normal ROM; no swelling Left lower extremity: normal to inspection and knee Details: normal to inspection and normal ROM; no tenderness and no swelling Psych Speech and movement: Normal speech and movement present Assessment & Plan Assessment & Plan (1) Right knee pain: Code(s): M25.561 - Pain in right knee Qualifiers: Chronicity: acute Qualified Code(s): M25.561 - Pain in right knee Plan: - Low impact exercises, like swimming - IceHot - Elevate joint - Placed Referral for PT Medications: New ibuprofen 600 mg PO Q6H PRN 30 tabs 0RF pain M25.561 - Pain in right knee diclofenac sodium 1% (Voltaren Arthritis Pain) apply to the right knee BID for pain relief 4 grams topical BID 100 grams 0RF Coding Level of Care Code Est Pt Level 4 (50071) Diagnoses Acute pain of right knee M25.561 Chronicity: acute Time Spent (min) 20
== END ==
PROVIDERS: PCP Internal Medicine; Visit Provider Nurse Practitioner Family
DX: M25.561 Pain in right knee (principal)
CPT/HCPCS: 99214

== ENCOUNTER 2023-12-09 11:42 | Outpatient (REF) | payer MEDICARE, SELFPAY ==
--- NOTE | ~2023-12-09 | XR_ITS ---
EXAMINATION: XR KNEE, RIGHT CLINICAL INFORMATION: Right knee pain x2 weeks. COMPARISON: None available. TECHNIQUE: Four views of the right knee. FINDINGS: Alignment is anatomic. Mild medial tibiofemoral cartilage space loss with marginal osteophytes. Quadriceps tendon enthesophyte. No significant joint effusion. XR/XR knee RT 4V IMPRESSION: Mild medial compartment osteoarthritis.
== END 2023-12-09 11:43 | disposition home or self-care (01) ==
LOC: HO.HMGCX 11:42
PROVIDERS: PCP Internal Medicine; Visit Provider Nurse Practitioner Family
DX: M25.561 Pain in right knee (principal)
CPT/HCPCS: 73564

== ENCOUNTER 2023-12-28 09:53 | Outpatient (REF) | payer MEDICARE, SELFPAY ==
[2023-12-28 13:49] LABS: Appearance Urine Clear; Color Urine Yellow; Glucose Urine UA Negative (Negative); Leukocyte Esterase Urine Moderate (2+) (Negative); Nitrite Urine Negative (Negative); PH 6.5 (5.0-9.0); Specific Gravity - Urine <= 1.005 (1.005-1.025); UMIC TRIGGER UA YES; Urine Blood Negative (Negative); Urine Ketones Negative (Negative); Urine Protein Negative (Neg-Trace)
[2023-12-28 13:53] LABS: Bacteria Urine None Seen (None Seen); Hyaline Casts Urine 0-2 /LPF (0-2); RBC Urine 0-2 /HPF (0-2); Squamous Epithelial Cell Urine 0-2 /HPF (0-2); WBC Urine 21-50 /HPF (0-5)
== END 2023-12-28 09:54 | disposition home or self-care (01) ==
LOC: HO.HMGCLDS 09:53
PROVIDERS: PCP Internal Medicine; Visit Provider Urology
DX: N39.0 Urinary tract infection, site not specified (principal)
CPT/HCPCS: 81001; 87086

== ENCOUNTER 2024-01-11 13:40 | Outpatient (REF) | payer MEDICARE, SELFPAY ==
[2024-01-11 17:07] LABS: Appearance Urine Cloudy; Color Urine Dark Yellow; Glucose Urine UA Negative (Negative); Leukocyte Esterase Urine Large (3+) (Negative); Nitrite Urine Positive (Negative); UMIC TRIGGER UA YES; Urine Blood Negative (Negative); Urine Ketones Trace mg/dL (Negative); Urine Protein 30 (1+) mg/dL (Neg-Trace)
[2024-01-11 17:33] LABS: Bacteria Urine 4+ (None Seen); RBC Urine 0-2 /HPF (0-2); Squamous Epithelial Cell Urine 0-2 /HPF (0-2); WBC Urine >50 /HPF (0-5)
== END 2024-01-11 13:41 | disposition home or self-care (01) ==
LOC: HO.HMGCLDS 13:40
PROVIDERS: PCP Internal Medicine; Visit Provider Urology
DX: R31.9 Hematuria, unspecified (principal); N20.1 Calculus of ureter; R10.9 Unspecified abdominal pain; N39.0 Urinary tract infection, site not specified; Z87.442 Personal history of urinary calculi
CPT/HCPCS: 81001; 87086; 87088; 87186

== ENCOUNTER 2024-01-20 08:00 | Outpatient (RCR) | payer MEDICARE, SELFPAY ==
--- NOTE | 2024-01-09 13:25 | MHC.PT.EP ---
[facility] [place] Office [place] [facility] [place] Office [address] Amy Peguero [address] [phone] F: [phone] F: [phone] F: [phone] F: [phone] Physical Therapy Plan of Care Date of Evaluation: 01/09/24 Date of Surgery: Diagnosis: R knee pain Assessment: Pt is a 78yo female who presents with subacute R knee pain, XR + for mild OA, possibly exacerbated by twisting her knee. Skilled PT indicated to reduce pain/edema, provide patient with education for prevention of additional injury to knee, instruction on safe exercise, promote core/hip strengthening and teach proper squat mechanics. Pt in agreement with POC and is motivated to participate. Frequency and Duration: The patient will be seen 2x/week, x 4 weeks Short Term Goals: 1. In 2 weeks, patient will demonstrate controlled gait speed without limping on R LE x 100 feet. 2. In 2 weeks improve R knee extension ROM to full. 3. In 2 weeks, improve TAC activation and endurance to WNL during standing modified squat/wall sit exercises. Human Resource Adviser Goals: 1. In 4 weeks, patient will be able to ascend and descend stairs without increased R knee pain. 2. Improve LEFS score 10 points in 4 weeks, indicating reduced pain and improved functional mobility. Treatment Plan: Modalities to reduce pain, spasms and effusion. Manual therapy to restore motion and function. Therapeutic exercise to improve strength and flexibility. Neuromuscular re-education for posture and balance. Therapeutic activities to return to functional activities of daily living. Electronically signed by: Kayy Garcia PT, DPT Please sign and return to therapist. Thank you for your referral.
--- NOTE | 2024-02-20 08:36 | MHC.PT.DC ---
[facility] [place] Office [place] Office [place] Office [address] Amy Peguero [address] [phone] F: [phone] F: [phone] F: [phone] F: [phone] Physical Therapy Discharge Report Diagnosis: R knee pain Date of Surgery: Date of Evaluation: 01/09/24 Date of Discharge: 02/20/24 Treatments to Date: 4 Cancellations to Date: No Shows to Date: Discharge Status: Achieved Goals Improved Function Independent with HEP Patient Elected to Stop Discharge Summary: 01/19: Patient has come to 4 sessions of PT. She has learned an HEP, KT that has assisted in her pain management and for which she feels comfortable continuing on her own at home. She demos WNL knee and ankle ROM, she has a good program with exercise classes and was educated on anatomy, ortho suggestions as needed and activities to avoid to stress arthritis. Pt feels like she has met her goals and is ready to DC to HEP. Chart was closed after 30 days. Electronically signed by: Iza Lawson PT Please sign and return to therapist. Thank you for your referral.
== END 2024-02-20 08:37 | disposition home or self-care (01) ==
LOC: HO.PTCHIC 08:00
PROVIDERS: PCP Internal Medicine; Visit Provider Nurse Practitioner Family
DX: M25.561 Pain in right knee (principal)
CPT/HCPCS: 97110; 97140; 97161

== ENCOUNTER 2024-03-21 07:46 | Outpatient (REF) | payer MEDICARE, SELFPAY ==
[2024-03-21 09:57] LABS: MANUAL DIFF FLAG NO
[2024-03-21 10:17] LABS: Basophils Absolute Auto 0.1 X10*3/uL (0.0-0.2); Basophils Percent Auto 1.1 % (0-2); Eosinophils Absolute Auto 0.3 X10*3/uL (0.0-0.4); Eosinophils Percent Auto 5.3 % (0-4); Hematocrit 43.5 % (37.0-47.0); Hemoglobin 14.7 g/dl (12.0-16.0); Imm Gran Abs Auto 0.03 X10*3/uL (0.00-0.03); Imm Gran Pct Auto 0.5 % (0.0-0.4); Lymphocytes Absolute Auto 1.6 X10*3/uL (1.2-4.9); Lymphocytes Percent Auto 24.3 % (20-40); Mean Corpuscular HGB Conc 33.8 g/dl (31.0-35.0); Mean Corpuscular Hemoglobin 29.9 pg (27.0-33.0); Mean Corpuscular Volume 88.6 fL (80.0-98.0); Mean Platelet Volume 10.8 fL (9.4-12.3); Monocytes Absolute Auto 0.6 X10*3/uL (0.1-1.2); Monocytes Percent Auto 9.5 % (2-11); Neutrophils Absolute Auto 3.8 x10*3/uL (2.0-8.3); Neutrophils Percent Auto 59.3 % (45-73); Platelet Count 263 X10*3/uL (160-400); Red Blood Count 4.91 X10*6/uL (4.20-5.50); Red Cell Distribution Width 12.3 % (11.0-16.0); White Blood Count 6.4 X10*3/uL (4.8-10.8)
[2024-03-21 10:38] LABS: Alanine Aminotransferase 120 U/L (0-31); Albumin Level 3.9 g/dL (3.5-5.0); Alkaline Phosphatase 64 U/L (39-117); Anion Gap 11 (12-20); Aspartate Amino Transferase 64 U/L (5-31); Bilirubin Total 0.5 mg/dL (0.0-1.0); Blood Urea Nitrogen 12 mg/dL (9-16); Calcium 9.4 mg/dL (8.4-10.2); Carbon Dioxide 26 mmol/L (22-29); Chloride 105 mmol/L (96-108); Cholesterol 219 mg/dL (<200); Estimated Glomerular Filt Rate > 60; Glucose Fasting 91 mg/dL (60-99); HDL Cholesterol 67 mg/dL (>40); LDL Cholesterol Calculated 142 mg/dL (<100); Potassium 4.4 mmol/L (3.3-5.1); Sodium 138 mmol/L (135-145); Total Protein 6.7 g/dL (6.5-8.0); Triglycerides 54 mg/dL (<150)
[2024-03-21 10:39] LABS: TSH reflex Free T4 2.53 uIU/mL (0.32-4.0); Vitamin D 25-OH Total 70.9 ng/mL (>30)
== END 2024-03-21 07:47 | disposition home or self-care (01) ==
LOC: HO.HMGCLDS 07:46
PROVIDERS: PCP Internal Medicine; Visit Provider Internal Medicine
DX: Z00.00 Encounter for general adult medical examination without abnormal findings (principal); E55.9 Vitamin D deficiency, unspecified; Z78.0 Asymptomatic menopausal state; R73.9 Hyperglycemia, unspecified; M35.3 Polymyalgia rheumatica; E78.5 Hyperlipidemia, unspecified
CPT/HCPCS: 36415; 80053; 80061; 82306; 84443; 85025

== ENCOUNTER 2024-03-26 11:25 | Outpatient (AMB) | payer MEDICARE, SELFPAY ==
--- NOTE | 2024-03-26 11:27 | A.OFFVIS_ITS ---
Intake Vital Signs 03/26/24 11:29 Height 5 ft 6 in Weight 163 lb BMI 26.3 BP 124/80 Blood Pressure Location Lt brachial Position Sitting Pulse 52 Pulse Source Pulse Oximeter Pulse Oximetry (%) 99 Oxygen Delivery Method Room Air Intake Visit Reasons: SWV G0439 Allergies No Known Allergies Allergy (Verified 12/09/23 11:19) Medication List - Last Reconciled 03/26/24 by Bisi Bolanos MD cholecalciferol (vitamin D3) 50 mcg PO DAILY diclofenac sodium 1% (Voltaren Arthritis Pain) 4 grams topical BID docusate sodium (Colace) 100 mg PO DAILY ibuprofen 600 mg PO Q6H PRN omega-3 fatty acids (Fish Oil) PO omeprazole 20 mg PO DAILY polyethylene glycol 3350 (Miralax) 17 grams PO DAILY 4 days HPI SWV G0439 HPI Details Initiated the conversation about Advanced Directives. Advanced Directives help? patients prepare for current and future decisions about their medical treatment? and place of care. Discussed with patient that it is a process where a patients? current condition and prognosis are reviewed, their wishes for information? regarding their illness are elicited, and likely medical dilemmas are presented? and options discussed. The form can be amended as needed, reviewed yearly and? make changes as needed IPPE/AWV ? year old presents? for her ? Annual? Wellness Visit, initial visit.? Medical / Social History Reviewed? Past Medical History ?Yes? . ? [facility]? of Care / Care Team list updated ?Yes . ? Surgical/Hospitalization? History ?Yes . ? Current Medications? (including OTC and supplements) ?Yes . ? Family History ?Yes? . ? Tobacco? Control form ?Yes . ? AUDIT-C (Alcohol use) form? ?Yes . ? Illicit drug use in Social? History ?Yes . ? Current diagnosis of? depression? ?No ? Appropriate PHQ2/PHQ9? completed ?Yes . ? Data entered by ?Medical? Envelope Machine Operator and reviewed by provider ? Fall Risk ? Fall? History? Have you had any falls with? injury in the past year? ?No . ? Have you had two or more? falls in the past year? ?No . ? Fall Risk Assessment: ?No? falls in the past year . ? HRA filled out by? the patient, reviewed by Provider and scanned. ? IPPE/AWV ? Balance? Romberg? ?Yes . ? Tandem? walk ?Yes . ? Walk and? Turn ?Yes . ? Rise from? sit to stand ?Yes . ?Vision? Corrective? lens ?Yes ? Vision? screen ? Up-to-date, has an appointment [] for vision? screening and glaucoma screening ?Hearing? Whisper? test ?pass .? Initiated the conversation about Advanced Directives. Advanced Directives help? patients prepare for current and future decisions about their medical treatment? and place of care. Discussed with patient that it is a process where a patients? current condition and prognosis are reviewed, their wishes for information? regarding their illness are elicited, and likely medical dilemmas are presented? and options discussed. The form can be amended as needed, reviewed yearly and? make changes as needed Written? Plan?Completed. See Patient? Documents. [facility] Medical History (Updated 03/26/24 @ 12:24 by Bisi Bolanos MD) Annual physical exam Carotid bruit Chest tightness Hyperglycemia Myalgia Postmenopausal Abnormal colonoscopy Plantar fasciitis Hyperlipidemia GERD (gastroesophageal reflux disease) History of breast cancer Surgical History History of tonsillectomy History of lumpectomy of right breast Family History Father No problems noted. Mother Mental health disorder Brother Pancreatic cancer Brother No problems noted. Brother Substance use disorder Son No problems noted. Daughter No problems noted. Social History Housing: House Alcohol intake: current Alcohol intake frequency: a few times a month Patient Tobacco Use Status: Never used Tobacco e-Cigarette/Vaping Use: Never Used Advance Directives Date on File: 09/06/19 service: No Current occupational status: retired Cognitive needs: No Hearing needs: No Vision needs: Yes Questionnaire Medicare Wellness Checkup [age] What gender do you identify with?: female During the past 4 weeks, how much have you been bothered by emotional problems such as feeling anxious, depressed, irritable, sad or downhearted, and blue?: not at all During the past 4 weeks, has your physical & emotional health limited your social activities with family, friends, neighbors, or groups?: not at all During the past 4 weeks, how much bodily pain have you generally had?: no pain During the past 4 weeks, was someone available to help you if you needed & wanted help?: yes, as much as I wanted During the past 4 weeks, what was the hardest physical activity you could do for at least 2 minutes?: very heavy Can you get to places out of walking distance without help? (For eg., can you travel alone on buses, taxis or drive your car?): Yes Can you go shopping for groceries or clothes without someone's help?: Yes Can you prepare your own meals?: Yes Can you do your housework without help?: Yes Because of any health problems, do you need the help of another person with your personal care needs such as eating, bathing, dressing or getting around the house?: No Can you handle your own money without help?: Yes During the past 4 weeks, how would you rate your health in general?: very good During the past 4 weeks how have things been going for you?: very well; could hardly better Are you having difficulties driving your car?: no Do you always fasten your seat belt when you are in a car?: yes, usually During past 4 weeks, have you been bothered by the following: never: Falling or dizzy when standing up, Sexual problems?, Trouble eating well?, Teeth or denture problems?, Problems using the telephone? and Tiredness or fatigue? Have you fallen 2 or more times in the past year?: No Are you afraid of falling?: No Are you a smoker?: no During the past 4 weeks, how many drinks of wine, beer, or other alcoholic beverages did you have?: 1 drink or less per week Do you exercise for about 20 minutes 3 or more times a week?: yes, most of the time Have you been given information to help with the following?: no: Hazards in your house that might hurt you? and no: Keeping track of your medications? How often do you have trouble taking medicines the way you have been told to take them?: I do not have to take medicine How confident are you that you can control & manage most of your health problems?: very confident What is your race?: White Mini Mental State Exam (MMSE) Orientation What is the (year) (season) (date) (day) (month)?: year, season, date, day and month Where are we (state) (county) (town or city) (hospital) (floor)?: state, county, town or city, hospital/clinic and floor Registration Name of 3 unrelated objects clearly and slowly, then ask patient to repeat all 3 of them. (1st repeat determines score. Make sure they can repeat all three): object 1, object 2 and object 3 Attention & Calculation (CHOOSE ONE) Spell WORLD backwards (DLROW): 5 letters Recall Ask patient to repeat the 3 items from question #3.: object 1, object 2 and object 3 Language Show patient a wristwatch & ask what it is. Repeat for pencil.: watch and pencil Ask the patient to repeat the phrase 'No ifs, ands, or buts' after you.: correct Ask the patient to 'take a piece of paper with their right hand' 'fold paper in half' 'place paper on floor': take paper in right hand, fold paper in half and place paper on floor Print the sentence 'CLOSE YOUR EYES' on a piece. If patient actually closes eyes then score.: followed written direction Give patient a blank piece of paper & ask to write a sentence. Score if it contains a noun & verb.: sentence contains subject and verb Score Score: 29 PHQ-9 Over the last 2 weeks, how often have you been bothered by any of the following problems? 1. Little interest or pleasure in doing things: not at all 2. Feeling down, depressed, or hopeless: not at all 3. Trouble falling or staying asleep, or sleeping too much: not at all 4. Feeling tired or having little energy: not at all 5. Poor appetite or overeating: not at all 6. Feeling bad about yourself - or that you are a failure or have let yourself or your family down: not at all 7. Trouble concentrating on things, such as reading the newspaper or watching television: not at all 8. Moving or speaking so slowly that other people could have noticed. Or the opposite - being so fidgety or restless that you have been moving around a lot more than usual: not at all 9. Thoughts that you would be better off or of hurting yourself in some way: not at all Total score: 0 Depression Screening Interpretation: Negative Depression Screening Done: Yes 35763 - PHQ-9 Billing: Yes Source: Developed by Drs. Vinicio Win, Sheryl Delaney, Sameer Russell and colleagues, with an educational janiya from [employer]. ZHANE-7 AMB Questionnaire ZHANE-7 Date ZHANE - 7 assessed: 03/26/24 Feeling nervous, anxious, or on edge: 0 = Not at all Not being able to stop or control worryin = Not at all Worrying too much about different things: 0 = Not at all Trouble relaxin = Not at all Being so restless that it is hard to sit still: 0 = Not at all Becoming easily annoyed or irritable: 0 = Not at all Feeling afraid as if something awful might happen: 0 = Not at all Total ZHANE-7 score (0-4 normal; 5-9 mild; 10-14 moderate; 15-21 severe): 0 Source: Developed by Drs. Vinicio Win, Sheryl Delaney, Sameer Russell and colleagues, with an educational janiya from [employer]. ZHANE-7 Assessment Billing ZHANE-7 Assessment Tool: ZHANE-7 Assessment 95983 Review of Systems Const All systems reviewed & are unremarkable except as noted in HPI and below Reports no additional complaints Eyes Reports no additional complaints ENT Reports no additional complaints Card Reports no additional complaints Resp Reports no additional complaints GI Reports no additional complaints Reports no additional complaints Musc Reports no additional complaints Physical Exam Vital Signs: Last Vital Signs Pulse 52 03/26/24 11:29 BP 124/80 03/26/24 11:29 Pulse Ox 99 03/26/24 11:29 Oxygen Delivery Method Room Air 03/26/24 11:29 BMI result Body Mass Index 26.3 Const General: no acute distress HEENT Head: Yes normal to inspection Ears: hearing grossly normal bilaterally Face and sinus: Yes normal facial exam Throat: Yes posterior oropharynx normal Eyes General: appearance normal, both eyes and all related structures Resp Effort & Inspection: normal respiratory effort Auscultation: clear to auscultation bilaterally Cardio Rhythm: regular rhythm Heart sounds: S1 normal heart sound present and S2 normal heart sound present Extrem General: Yes no clubbing, cyanosis or edema Assessment & Plan Assessment & Plan (1) Elevated LFTs: Comment: borderline Code(s): R79.89 - Other specified abnormal findings of blood chemistry Plan: avoid NSAIDs, ETOH, recheck in 1 month (2) Annual physical exam: Code(s): Z00.00 - Encounter for general adult medical examination without abnormal findings Plan: Well-balanced diet regular exercise discussed with the patient. She is up-to-date with the mammogram colonoscopy (3) Hyperlipidemia: Comment: diet controlled Code(s): E78.5 - Hyperlipidemia, unspecified Plan: Continue low-cholesterol diet (4) Vitamin D deficiency: Code(s): E55.9 - Vitamin D deficiency, unspecified Plan: CONTINUE VITAMIN-D SUPPLEMENT Orders: Orders Lipid Panel 1 Year E55.9 - Vitamin D deficiency, unspecified, E78.5 - Hyperlipidemia, unspecified, R73.9 - Hyperglycemia, unspecified, Z00.00 - Encounter for general adult medical examination without abnormal findings Complete Blood Count Auto Diff 1 Year E55.9 - Vitamin D deficiency, unspecified, E78.5 - Hyperlipidemia, unspecified, R73.9 - Hyperglycemia, unspecified, Z00.00 - Encounter for general adult medical examination without abnormal findings Liver Panel 1 Month R79.89 - Other specified abnormal findings of blood chemistry Comprehensive [place]. Panel Fast 1 Year E55.9 - Vitamin D deficiency, unspecified, E78.5 - Hyperlipidemia, unspecified, R73.9 - Hyperglycemia, unspecified, Z00.00 - Encounter for general adult medical examination without abnormal findings Vitamin D 25-OH Total 1 Year E55.9 - Vitamin D deficiency, unspecified, E78.5 - Hyperlipidemia, unspecified, R73.9 - Hyperglycemia, unspecified, Z00.00 - Encounter for general adult medical examination without abnormal findings TSH reflex Free T4 1 Year E55.9 - Vitamin D deficiency, unspecified, E78.5 - Hyperlipidemia, unspecified, R73.9 - Hyperglycemia, unspecified, Z00.00 - Encounter for general adult medical examination without abnormal findings Medications: Discontinued ibuprofen Discontinued Reason: Doctor's Order 600 mg PO Q6H PRN 30 tabs 0RF pain M25.561 - Pain in right knee Quality Reporting (2019) Depression/Bipolar (159/160/161/177) PHQ-9: Total score: 0 Coding Level of Care Code Medicare Subsequent (G0439) Diagnoses Elevated LFTs R79.89 Annual physical exam Z00.00 Hyperlipidemia E78.5 Vitamin D deficiency E55.9 CPT Codes Advance Care Planning - Advance Care Planning discussion: On file, no changes ([id number]) Advance Care Planning - Time spent: 1-15 minutes, on File ([id number]) Additional Codes ZHANE-7 Assessment Billing - ZHANE-7 Assessment Tool: ZHANE-7 Assessment 73501 ([id number]) Advance Care Planning Advance Care Planning discussion: On file, no changes Forms completed: Health Care Proxy Time spent: 1-15 minutes, on File
[2024-03-26 11:29] VITALS: BP 124/80; PULSE 52; O2SAT 99; BMI 26.3
== END 2024-03-26 12:27 | disposition home or self-care (01) ==
PROVIDERS: PCP Internal Medicine; Visit Provider Internal Medicine
DX: Z00.00 Encounter for general adult medical examination without abnormal findings (principal); R79.89 Other specified abnormal findings of blood chemistry; E78.5 Hyperlipidemia, unspecified; E55.9 Vitamin D deficiency, unspecified
CPT/HCPCS: 1123F; G0439

== ENCOUNTER 2024-04-18 08:41 | Outpatient (REF) | payer MEDICARE, SELFPAY ==
[2024-04-18 10:46] LABS: Alanine Aminotransferase 25 U/L (0-31); Albumin Level 3.9 g/dL (3.5-5.0); Alkaline Phosphatase 68 U/L (39-117); Aspartate Amino Transferase 20 U/L (5-31); Bilirubin Direct 0.2 mg/dL (0.0-0.5); Bilirubin Total 0.5 mg/dL (0.0-1.0); Total Protein 6.7 g/dL (6.5-8.0)
== END 2024-04-18 08:42 | disposition home or self-care (01) ==
LOC: HO.HMGCLDS 08:41
PROVIDERS: PCP Internal Medicine; Visit Provider Internal Medicine
DX: R79.89 Other specified abnormal findings of blood chemistry (principal)
CPT/HCPCS: 36415; 80076

== ENCOUNTER 2024-08-29 06:16 | Day surgery (SDC) | payer MEDICARE, SELFPAY ==
[2024-08-27 13:51] VITALS: BMI 25.1
--- NOTE | 2024-08-28 08:18 | HO.ANESPROP2 ---
Documented by User: Kristen Schmidt NP 08/28/24 08:19 HPI - Anesthesia Eval Consult details Narrative: 79yo F for Upper Endoscopy and Colonoscopy PMF Active Problems Active Problems: All Active Problems Elevated LFTs (Acute) History of kidney stones (Acute) Ureteral stone (Acute) Right flank pain (Acute) UTI (urinary tract infection) (Acute) Hematuria (Acute) Dysphagia (Acute) Back pain (Acute) Flank pain, chronic (Acute) Vitamin D deficiency (Acute) Postmenopausal (Acute) Annual physical exam (Acute) Chest tightness (Acute) Dyspnea (Acute) Osteopenia (Acute) Polymyalgia rheumatica (Acute) Body aches (Acute) Carotid bruit (Acute) Hyperglycemia (Acute) Myalgia (Acute) Postmenopausal (Acute) Abnormal colonoscopy (Acute) Plantar fasciitis (Acute) Hyperlipidemia (Acute) History of breast cancer (Acute) GERD (gastroesophageal reflux disease) (Acute) Past Medical History Medical History Carotid bruit Hyperglycemia Myalgia Postmenopausal Abnormal colonoscopy Plantar fasciitis Hyperlipidemia GERD (gastroesophageal reflux disease) History of breast cancer Family History Family History Father No problems noted. Mother Mental health disorder Brother Pancreatic cancer Brother No problems noted. Brother Substance use disorder Son No problems noted. Daughter No problems noted. Family history of problems with anesthesia: No Surgical History Surgical History History of esophagogastroduodenoscopy (EGD) H/O colonoscopy History of tonsillectomy History of lumpectomy of right breast History of Problems with Anesthesia: No Social History Social History Housing: House Are you a primary patient centered care specialist to a significant other at home: No Do you presently have visiting nurse or other home services: No Alcohol intake: current Alcohol intake frequency: holidays/special occasions only Patient Tobacco Use Status: Never used Tobacco e-Cigarette/Vaping Use: Never Used Use of substances other than those prescribed or required for medical reasons: Yes Substance Use Type Other:: THC gummy 5mg nightly Substance Use Frequency: Daily Have you been hit, kicked, punched, or otherwise hurt by someone within the past year? If so, by whom?: No Are you DNR?: No Advance Directives: Yes Advance Directives Information Provided: Yes Advance Directives on File: Yes Advance Directives Date on File: 02/16/10 Recently lost weight without trying: No How much weight loss: Not applicable Eating poorly because of decreased appetite: No Nutrition screen score: 0 Nutrition Risks: No Nutritional Risk Patient : No : No Poor oral hygiene: No service: No Current occupational status: retired Cognitive needs: No Hearing needs: No Vision needs: Yes Meds Allergies Allergy/AdvReac Type Severity Reaction Status Date / Time No Known Allergies Allergy Verified 08/29/24 06:28 Home Medications ?Medication ?Instructions ?Recorded ?Confirmed ?Last Taken ?Type cholecalciferol (vitamin D3) 50 50 mcg PO DAILY 09/05/20 08/29/24 Unknown History mcg (2,000 unit) capsule cat's claw bark 485 mg capsule 485 mg PO DAILY 08/27/24 08/29/24 Unknown History multivitamin 1 tab PO DAILY 08/27/24 08/29/24 Unknown History omega 9-iyx-kfn-fish oil 300 1 cap PO DAILY 08/27/24 08/29/24 07/29/24 History mg-1,000 mg capsule (Fish Oil) Exam Height,Weight and Vital Signs: Height 5 ft 6.75 in Weight 72.291 kg Assessment and Plan Assessment Anesthesia Assessment: Chart Reviewed Final Anesthetic Review Family History of Problems with Anesthesia: No History of Problems with Anesthesia: No Documented by User: Marilyn Garcia MD 08/29/24 08:28 [facility] Past Medical History Medical History Carotid bruit Hyperglycemia Myalgia Postmenopausal Abnormal colonoscopy Plantar fasciitis Hyperlipidemia GERD (gastroesophageal reflux disease) History of breast cancer Family History Family History Father No problems noted. Mother Mental health disorder Brother Pancreatic cancer Brother No problems noted. Brother Substance use disorder Son No problems noted. Daughter No problems noted. Family history of problems with anesthesia: No Surgical History Surgical History History of esophagogastroduodenoscopy (EGD) H/O colonoscopy History of tonsillectomy History of lumpectomy of right breast History of Problems with Anesthesia: No Social History Social History Housing: House Are you a primary patient centered care specialist to a significant other at home: No Do you presently have visiting nurse or other home services: No Alcohol intake: current Alcohol intake frequency: holidays/special occasions only Patient Tobacco Use Status: Never used Tobacco e-Cigarette/Vaping Use: Never Used Use of substances other than those prescribed or required for medical reasons: Yes Substance Use Type Other:: THC gummy 5mg nightly Substance Use Frequency: Daily Have you been hit, kicked, punched, or otherwise hurt by someone within the past year? If so, by whom?: No Are you DNR?: No Advance Directives: Yes Advance Directives Information Provided: Yes Advance Directives on File: Yes Advance Directives Date on File: 02/16/10 Recently lost weight without trying: No How much weight loss: Not applicable Eating poorly because of decreased appetite: No Nutrition screen score: 0 Nutrition Risks: No Nutritional Risk Patient : No : No Poor oral hygiene: No service: No Current occupational status: retired Cognitive needs: No Hearing needs: No Vision needs: Yes Meds Allergies Allergy/AdvReac Type Severity Reaction Status Date / Time No Known Allergies Allergy Verified 08/29/24 06:28 Home Medications ?Medication ?Instructions ?Recorded ?Confirmed ?Last Taken ?Type cholecalciferol (vitamin D3) 50 50 mcg PO DAILY 09/05/20 08/29/24 Unknown History mcg (2,000 unit) capsule cat's claw bark 485 mg capsule 485 mg PO DAILY 08/27/24 08/29/24 Unknown History multivitamin 1 tab PO DAILY 08/27/24 08/29/24 Unknown History omega 4-nlh-dnd-fish oil 300 1 cap PO DAILY 08/27/24 08/29/24 07/29/24 History mg-1,000 mg capsule (Fish Oil) Exam Height,Weight and Vital Signs: Height 5 ft 6.75 in Weight 72.291 kg Vital Signs Temp Pulse Resp BP Pulse Ox O2 Del Method 08/29/24 07:17 97.5 F 55 16 128/65 99 Room Air Airway Mallampati Class: II TM Dist: >3cm Neck ROM: Full Loose/Missing/Broken Teeth: Yes (Extracted wisdom teeth. Denies broken or loose teeth) Heart: RRR Lungs: CTAB Assessment and Plan Assessment Anesthesia Assessment: Anesthesia Plan Discussed and Chart Reviewed Final Anesthetic Review Family History of Problems with Anesthesia: No History of Problems with Anesthesia: No NPO: Yes ASA Class: II Final Preanesthetic Review: No Changes in Pt Med Stat, Meds/Allgs Chart Reviewed, Consent Obtained/Reviewed and Anes Risks/Benef Reviewed Patient Risk: Intermediate Procedure Risk: Low Assessment/Block/Sedation in SS: Assess/Block/Sedation-SS Anesthetic Plan Anesthetic Plan: TIVA Disposition: Standard PACU
[2024-08-29 06:30] VITALS: BMI 26.7
[2024-08-29 07:17] VITALS: BP 128/65; PULSE 55; RESP 16; TEMP 36.4; O2SAT 99
[2024-08-29] MEDS: Lactated Ringers 1,000 ML 100 ML IVCONT (07:18)
[2024-08-29 08:49] VITALS: BP 92/37; PULSE 59; RESP 20; TEMP 36.2; O2SAT 98
--- NOTE | 2024-08-29 08:55 | P.BOP_ITS ---
Brief Operative Note Date of Service: 08/29/24 Pre-op diagnosis: GERD, Screening Post-op diagnosis: other (Hiatal hernia, Colon polyps) Procedure: EGD, Colonoscopy to the cecum and TI with bx and removal of polyps Surgeon: Vinicio Keane MD Anesthesia: MAC Was an Sales Support Coordinator used for this Procedure?: No Estimated blood loss (mL): 2.0 Pathology: other (A. Cecal polyps B. Ascending colon polyp C. Polyp at 50cm) Condition: stable Disposition: PACU
[2024-08-29 09:04] VITALS: BP 130/58; PULSE 52; RESP 20; TEMP 36.1; O2SAT 98
--- NOTE | 2024-08-29 10:00 | OP_ITS ---
DATE OF SERVICE: 08/29/2024 SURGEON: Vinicio Keane MD INDICATIONS: The patient presents for evaluation of gastroesophageal reflux, colorectal cancer screening, personal history of colon polyps, and occasional hematochezia. Full consent obtained from her for both procedures, including risks of bleeding and perforation. PREOPERATIVE DIAGNOSIS: POSTOPERATIVE DIAGNOSIS: PROCEDURE PERFORMED: Esophagogastroduodenoscopy and colonoscopy to the cecum and terminal ileum with biopsy and removal of polyps. ESTIMATED BLOOD LOSS: COMPLICATIONS: ANESTHESIA: Monitored anesthesia care. ASSISTANTS: SPECIMENS: PREOPERATIVE DIAGNOSES: Gastroesophageal reflux, hematochezia, history of colon polyps and colorectal cancer screening. POSTOPERATIVE DIAGNOSES: Gastroesophageal reflux, hematochezia, history of colon polyps and colorectal cancer screening, small hiatal hernia, small colon polyps, diverticulosis, and internal hemorrhoids. DESCRIPTION OF PROCEDURE: The patient was placed in the left lateral decubitus position. The Olympus video gastroscope was passed in the posterior oropharynx and upper esophagus under direct vision. The scope was passed slowly to the distal esophagus. The gastroesophageal junction appeared at 38 cm. There was some minimal irregularity, but no evidence of any esophagitis nor Gupta esophagus. There was no sign of any stricture nor esophageal ring. The scope easily entered the stomach. There was a small hiatal hernia. The scope was advanced to pylorus and the duodenum was cannulated to the descending portion. The duodenum including the bulb appeared normal without mass or ulceration. The scope was withdrawn back to the stomach. The gastric antrum and body appeared normal with good peristalsis. The scope was retroflexed visualizing the proximal stomach carefully, which appeared normal, without any sign of mass nor ulceration. The scope was straightened and withdrawn back to the esophagus. The esophageal mucosa appeared normal. The scope was withdrawn from the patient. She was turned around for the colonoscopy. The digital rectal exam revealed no abnormalities. The Olympus video pediatric colonoscope was entered into the rectum and advanced easily to the cecum. Once in the cecum, I did identify cecal pouch with appendiceal orifice and a normal-appearing ileocecal valve. The terminal ileum was cannulated and appeared normal. The scope was withdrawn back in the colon. The entire cecum was well visualized and appeared normal other than 2 less than 5 mm polyps. These were both biopsied and completely removed with cold biopsy forceps. The scope was then slowly withdrawn assessing all mucosal surfaces carefully. Preparation was excellent. In the ascending colon, there was a flat less than 5 mm polyp, which was biopsied and completely removed with cold biopsy forceps. At 50 cm, was a flat, less than 5 mm polyp, which was biopsied and completely removed with cold biopsy forceps. I did not visualize any other polyps, colitis, nor angiodysplasia. There was a mild amount of sigmoid diverticulosis. In the rectum, scope was retroflexed visualizing internal hemorrhoids, but no other pathology. The rectal mucosa appeared normal. The scope was straightened and withdrawn from the patient. She tolerated the procedure well and was returned to the recovery area in stable condition. IMPRESSION: 1. Small hiatal hernia, gastroesophageal reflux. 2. Small colon polyps. 3. Diverticulosis. 4. Internal hemorrhoids. PLAN: The results of the pathology will be checked. Given these minimal findings and her age, I do not think she has any further screening colonoscopies. She was advised to continue omeprazole as needed for reflux. I do not think she will need any further upper endoscopies either. If things are stable, she will see me on a p.r.n. basis. She was advised not to use any aspirin or NSAIDs for 1 week. This has been discussed with her daughter. MD LAXMI Flores/CARLOS / [phone]
== END 2024-08-29 10:01 | disposition home or self-care (01) ==
PROVIDERS: PCP Internal Medicine; Visit Provider Internal Medicine
PROC: (CPT 45380; principal; 2024-08-29 07:30)
DX: Z12.11 Encounter for screening for malignant neoplasm of colon (principal); Z86.0101 Personal history of adenomatous and serrated colon polyps; D12.0 Benign neoplasm of cecum; D12.2 Benign neoplasm of ascending colon; D12.5 Benign neoplasm of sigmoid colon; K57.30 Diverticulosis of large intestine without perforation or abscess without bleeding; K64.8 Other hemorrhoids; K59.00 Constipation, unspecified; K21.9 Gastro-esophageal reflux disease without esophagitis; K44.9 Diaphragmatic hernia without obstruction or gangrene; E78.5 Hyperlipidemia, unspecified; M35.3 Polymyalgia rheumatica; Z87.442 Personal history of urinary calculi; Z85.3 Personal history of malignant neoplasm of breast; Z92.3 Personal history of irradiation; Z79.899 Other long term (current) drug therapy; Z79.1 Long term (current) use of non-steroidal anti-inflammatories (NSAID); Z98.890 Other specified postprocedural states
CPT/HCPCS: 45380; 43235; 88305; J2003; J2704

== ENCOUNTER 2024-09-20 11:34 | Outpatient (AMB) | payer MEDICARE, SELFPAY ==
[2024-09-20 11:52] VITALS: BP 118/74; PULSE 60; RESP 18; TEMP 36.7; O2SAT 100; BMI 26.1
--- NOTE | 2024-09-20 11:52 | A.OFFPC_ITS ---
Vital Signs 09/20/24 11:52 Height 5 ft 6 in Weight 162 lb BMI 26.1 BP 118/74 Blood Pressure Location Lt brachial Position Sitting Respiration 18 Pulse 60 Pulse Source Pulse Oximeter Temp 98.0 F Temp Source Oral Pulse Oximetry (%) 100 Oxygen Delivery Method Room Air Intake Visit Reasons: Norovirus Intake Note: Pt is here today for a sick visit. Pt c/o dizziness. Pt states that she thinks she had norovirus starting 09/06/24 she was extremely dizzy, sweating, chills vomiting. Pt also states that she noticed her head shakes. Allergies No Known Allergies Allergy (Verified 09/20/24 11:52) Medication List - Last Reconciled 09/20/24 by Bisi Bolanos MD cat's claw bark 485 mg PO DAILY cholecalciferol (vitamin D3) 50 mcg PO DAILY diclofenac sodium 1% (Voltaren Arthritis Pain) 4 grams topical BID docusate sodium (Colace) 100 mg PO DAILY multivitamin 1 tab PO DAILY omega 8-bjk-qra-fish oil 300-1,000 mg (Fish Oil) 1 cap PO DAILY omeprazole 20 mg PO DAILY Tobacco use date assessed: 09/20/24 Fall risk assessment: No Falls in past year Last assessed Fall Risk: 09/20/24 Dental Screening Dental Screen Date: 09/20/24 Did you have a dental visit in the last 12 months?: Yes Did you have a dental problem in the last 6 months where you did not have access to dental care?: No Was dental information given to patient?: Patient has dentist HPI Norovirus HPI Details Patient presents complaining of difficulty with the balance feeling wobbly and needing to hold to the alvarado when walking for the last 4 days. She had viral gastroenteritis last week which lasted 4 days. Patient has been able to tolerate fluids and eating regular foods for the last 3 days. She denies weakness or numbness in extremities, diplopia nausea vomiting difficulty swallowing or speaking, headache. [facility] Medical History Carotid bruit Hyperglycemia Myalgia Postmenopausal Abnormal colonoscopy Plantar fasciitis Hyperlipidemia GERD (gastroesophageal reflux disease) History of breast cancer Surgical History History of esophagogastroduodenoscopy (EGD) H/O colonoscopy History of tonsillectomy History of lumpectomy of right breast Family History Father No problems noted. Mother Mental health disorder Brother Pancreatic cancer Brother No problems noted. Brother Substance use disorder Son No problems noted. Daughter No problems noted. Social History Housing: House Are you a primary healthcare manager to a significant other at home: No Do you presently have visiting nurse or other home services: No Alcohol intake: current Alcohol intake frequency: holidays/special occasions only Patient Tobacco Use Status: Never used Tobacco e-Cigarette/Vaping Use: Never Used Advance Directives Date on File: 02/16/10 service: No Current occupational status: retired Cognitive needs: No Hearing needs: No Vision needs: Yes Questionnaire Thrive Questionnaire Date Thrive assessed: 09/20/24 I am a: Patient What is your living situation today?: I have a steady place to live Within the past 12 months, did the food you bought not last and you didn't have the money to get more?: Never true Within the past 12 months, did you worry whether your food would run out before you got money to buy more?: Never true Do you have trouble paying for medicines?: No Do you have trouble getting transportation to medical appointments?: No Do you have trouble paying your heating and electricity bill?: No Do you have trouble taking care of your child, family member or friend?: No Do you have trouble with day-to-day activities such as bathing, preparing meals, shopping, managing finances, etc.?: No Are you currently unemployed and looking for a job?: No Are you interested in more education?: No Please select the resources that you would like help with: None Currently or been in a relationship where the following occur: No concerns reported THRIVE Score: 0 AUDIT C Alcohol Use Questionnaire (AUDIT-C) 1. How often do you have a drink containing alcohol?: Monthly or less 2. How many drinks containing alcohol do you have on a typical day when you are drinking?: 1 or 2 3. How often do you have six or more drinks on one occasion?: Never Total Score: 1 ZHANE-7 AMB Questionnaire ZHANE-7 Date ZHANE - 7 assessed: 09/20/24 Feeling nervous, anxious, or on edge: 0 = Not at all Not being able to stop or control worryin = Not at all Worrying too much about different things: 0 = Not at all Trouble relaxin = Not at all Being so restless that it is hard to sit still: 0 = Not at all Becoming easily annoyed or irritable: 0 = Not at all Feeling afraid as if something awful might happen: 0 = Not at all Total ZHANE-7 score (0-4 normal; 5-9 mild; 10-14 moderate; 15-21 severe): 0 Source: Developed by Drs. Vinicio Win, Sheryl Delaney, Sameer Russell and colleagues, with an educational janiya from [employer]. ZHANE-7 Assessment Billing ZHANE-7 Assessment Tool: ZHANE-7 Assessment 14961 Review of Systems Const All systems reviewed & are unremarkable except as noted in HPI and below Eyes Reports no additional complaints ENT Reports no additional complaints Card Reports no additional complaints Resp Reports no additional complaints GI Reports no additional complaints Reports no additional complaints Physical exam (Primary Care) Vital Signs: Last Vital Signs Temp 98.0 F 09/20/24 11:52 Pulse 60 09/20/24 11:52 Resp 18 09/20/24 11:52 BP 118/74 09/20/24 11:52 Pulse Ox 100 09/20/24 11:52 Oxygen Delivery Method Room Air 09/20/24 11:52 BMI result Body Mass Index 26.1 Tobacco/Smoking Status: Tobacco use Status Tobacco use date assessed 09/20/24 09/20/24 12:01 Patient Tobacco Use Status Never used Tobacco 09/20/24 12:01 e-Cigarette/Vaping Use Never Used 09/20/24 12:01 Thrive Assessment: Date of Thrive Assessment Date Thrive assessed 09/20/24 09/20/24 12:05 Currently or been in a relationship where the following occur: No concerns reported Const General: no acute distress HENMT Head: Yes normal to inspection Face and sinus: Yes normal facial exam Mouth: Normal oral and palatal mucosa present Eyes General: appearance normal, both eyes and all related structures Visual Dawn: normal visual dawn by confrontation Pupils: Equal, round and reactive pupils present EOM: EOMs intact bilaterally Neck Neck: Yes supple Resp Effort & Inspection: normal respiratory effort Auscultation: clear to auscultation bilaterally Cardio Rhythm: regular rhythm Heart sounds: S1 normal heart sound present and S2 normal heart sound present GI Inspection: Yes normal to inspection Palpation (GI): Soft to palpation Percussion: Yes normal to percussion Auscultation: normal bowel sounds Neuro Cranial nerves: Yes CN's II-XII intact bilaterally and Yes Equal, round and reactive pupils present Gait exam (Neuro): Ataxic gait present Motor exam (neuro): 5/5 motor strength present throughout, Pronator motor func tion not present and no tremor noted Romberg Test: Positive (to the left) Extrem General: Yes no clubbing, cyanosis or edema Coding Level of Care Code Est Pt Level 4 (10258) Diagnoses Ataxia R27.0 Vertigo R42 Additional Codes ZHANE-7 Assessment Billing - ZHANE-7 Assessment Tool: ZHANE-7 Assessment 14949 ([id number]) Assessment & Plan Assessment & Plan (1) Ataxia: Code(s): R27.0 - Ataxia, unspecified Category: Medical Plan: For new onset ataxia with vertigo CT of the brain will be obtained. (2) Vertigo: Code(s): R42 - Dizziness and giddiness Category: Medical Plan: Check comprehensive metabolic panel and CBC , obtain CT of the brain and trial of meclizine Orders: Orders Comprehensive Met. Panel Today R27.0 - Ataxia, unspecified Complete Blood Count Auto Diff Today R27.0 - Ataxia, unspecified CT head/brain wo IV con Today I67.89 - Other cerebrovascular disease, R27.0 - Ataxia, unspecified Medications: New meclizine 12.5 mg PO TID PRN 30 tabs 0RF dizziness
--- OUTSIDE RECORDS SUMMARY | 2024-09-20 14:14 | XMS_ITS ---
Author Organization [facility] Address [address] [place] [address] Care Team Providers Care Infrastructure Consultant Name Role Phone Bisi Bolanos MD Primary Care Provider Vinicio Alexander [phone] Encounters Encounter Location Date Provider Diagnosis [facility] [address] [place] [address] 02/10/2024 Vinicio Keane Plan Of Treatment No Information Progress Notes * GEORGE IRVINDOB:[birth year] (78 yo F)Acc No.[id number]:02/10/2024 Patient:?GEORGE IRVIN :1945???Age:78 Y???Sex:Female Address:[address], [place], [address] * true * Date:? Generated for Sherley barboza/Rosa/eTransmitting on:?09/20/2024 02:14 PM EST
--- OUTSIDE RECORDS SUMMARY | 2024-09-20 14:14 | XMS_ITS ---
Author Organization [facility] Address [address] [place] [address] Care Team Providers Care Lace Tearing Supervisor Name Role Phone Bisi Bolanos MD Primary Care Provider Vinicio Alexander Unavailable [phone] Allergies No Known Allergies REASON FOR VISIT Patient presents today for RECTAL BLEEDING Medications Medication SIG (Take, Route, Frequency, Duration) Notes Start Date End Date Status Omeprazole 20 MG 1 Orally Once a day for 30 day(s) 06/08/2022 Active Fish Oil Active Zinc 10 MG as directed Orally Active Omeprazole 20 MG TAKE ONE CAPSULE BY MOUTH EVERY MORNING Active Ibuprofen 600 MG 1 tablet with food o r milk as needed Orally Three times a day 12/16/2023 Active Omeprazole Magnesium 20 MG 1 tablet 30 minutes before morning meal Orally Once a day for 30 day(s) Active Vitamin D 50 MCG (2000 UT) 1 capsule Orally Once a day for 30 day(s) Active Cats Claw 500 MG as directed Orally Active Multi Vitamin - 1 tablet Orally Once a day for 30 day(s) Active Fish Oil + D3 3204-3434 MG-UNIT 1 capsule Orally Three times a day for 30 day(s) Not-Taking Social History Tobacco Use: Social History Observation Description Date Details (start date - stop date) Never Smoker NA - NA Tobacco Use/Smoking Question Answer Notes Patient is a nonsmoker Alcohol Screen Question Answer Notes Did you have a drink contain ing alcohol in the past year? Yes How often did you have a dri nk containing alcohol in the past year? Never (0 point) How many drinks did you have on a typical day when you were drinking in the past year? 1 or 2 drinks (0 point) Points 0 Interpretation Negative Section Notes: Nonsmoker; no sig alcohol Problems Problem Type SNOMED Code ICD Code Onset Dates Problem Status W/U Status Risk Notes Problem Hemorrhage of rectum and anus (952444959) Rectal bleed (K62.5) Active confirmed Problem Gastroesophageal reflux disease (306282043) Chronic GERD (K21.9) Active confirmed Vital Signs Temperature 97.1 degrees Fahrenheit 04/25/20 24 Blood pressure systolic 000 mm Hg 04/25/20 24 Blood pressure diastolic 00 mm Hg 024 Height 66.75 in 04/25/2024 Weight 159 lb 6 oz lbs 04/25/2024 BMI 25.15 kg/m2 04/25/2024 Encounters Encounter Location Date Provider Diagnosis [facility] [address] [facility] [address] [place] [address] 04/25/2024 Vinicio Keane Rectal bleed K62.5 ; Chronic GERD K21.9 and History of adenomatous polyp of colon Z86.010 Assessments Encounter Date Diagnosis (ICD Code) Assessment Notes Treatment Notes Treatment Clinical Notes Section Notes 04/25/2024 Rectal bleed (ICD-10 - K62.5) Use Metamucil for the constipation Overall, George appears quite well. In regard to her recent rectal bleeding I advised her that seemed quite consistent with that of a perianal source such as internal hemorrhoids due to some constipation and straining. This does not seem to be bothering her any longer. I did recommend that she use Metamucil on a more regular basis with plenty of fluids so as to avoid further episodes of constipation and straining. Given her history of tubular adenomas in her last colonoscopy approaching 4 years ago, I did recommend a followup colonoscopy for further evaluation as well. We did review the rationale for that in regard to colorectal cancer prevention and/or early detection. I did advise her that she is not having any worrisome symptoms of reflux although does have some upper GI complaints of a sense of dysphagia which I advised her is most likely from some esophageal dysmotility due to ongoing reflux now that she is off omeprazole. As such, I did advise her to use the omeprazole regularly at least every other day to treat her symptoms of heartburn and prevent dysphagia. She did want to undergo an upper endoscopy as well due to her concerns about those symptoms. Full consent was obtained from her for both procedures, including risks of bleeding and perforation. The procedures will be done with monitored anesthesia care. George was comfortable with this plan. Thank you again for allowing me to participate in George's care. I shall continue to keep you advised of her progress. 04/25/2024 Chronic GERD (ICD-10 - K21.9) Use omeprazole at least every other day Overall, George appears quite well. In regard to her recent rectal bleeding I advised her that seemed quite consistent with that of a perianal source such as internal hemorrhoids due to some constipation and straining. This does not seem to be bothering her any longer. I did recommend that she use Metamucil on a more regular basis with plenty of fluids so as to avoid further episodes of constipation and straining. Given her history of tubular adenomas in her last colonoscopy approaching 4 years ago, I did recommend a followup colonoscopy for further evaluation as well. We did review the rationale for that in regard to colorectal cancer prevention and/or early detection. I did advise her that she is not having any worrisome symptoms of reflux although does have some upper GI complaints of a sense of dysphagia which I advised her is most likely from some esophageal dysmotility due to ongoing reflux now that she is off omeprazole. As such, I did advise her to use the omeprazole regularly at least every other day to treat her symptoms of heartburn and prevent dysphagia. She did want to undergo an upper endoscopy as well due to her concerns about those symptoms. Full consent was obtained from her for both procedures, including risks of bleeding and perforation. The procedures will be done with monitored anesthesia care. George was comfortable with this plan. Thank you again for allowing me to participate in George's care. I shall continue to keep you advised of her progress. 04/25/2024 History of adenomatous polyp of colon (ICD-10 - Z86.010) Overall, George appears quite well. In regard to her recent rectal bleeding I advised her that seemed quite consistent with that of a perianal source such as internal hemorrhoids due to some constipation and straining. This does not seem to be bothering her any longer. I did recommend that she use Metamucil on a more regular basis with plenty of fluids so as to avoid further episodes of constipation and straining. Given her history of tubular adenomas in her last colonoscopy approaching 4 years ago, I did recommend a followup colonoscopy for further evaluation as well. We did review the rationale for that in regard to colorectal cancer prevention and/or early detection. I did advise her that she is not having any worrisome symptoms of reflux although does have some upper GI complaints of a sense of dysphagia which I advised her is most likely from some esophageal dysmotility due to ongoing reflux now that she is off omeprazole. As such, I did advise her to use the omeprazole regularly at least every other day to treat her symptoms of heartburn and prevent dysphagia. She did want to undergo an upper endoscopy as well due to her concerns about those symptoms. Full consent was obtained from her for both procedures, including risks of bleeding and perforation. The procedures will be done with monitored anesthesia care. George was comfortable with this plan. Thank you again for allowing me to participate in George's care. I shall continue to keep you advised of her progress. Plan Of Treatment Treatment Notes Assessment Notes Rectal bleed Use Metamucil for th e constipation Chronic GERD Use omeprazole at le ast every other day Future Test Test Name Order Date UPPER GI ENDOSCOPY 04/25/2024 COLONOSCOPY 04/25/2024 Next Appt Details Follow Up: prn, Reason: Progress Notes * GEORGE IRVIN JDOB:[birth year] (78 yo F)Acc No.[id number]:04/25/2024 Progress Notes Patient:?GEORGE IRVIN Provider:?Vinicio Keane MD :1945???Age:78 Y???Sex:Female D ate:04/25/2024 Address:[address] [place] [address], [facility] Pcp:Bisi Bolanos MD Subjective: * Chief Complaints: * ???Patient presents today fo r RECTAL BLEEDING * HPI: ???incontinence:? I saw George in the office today for evaluation of her chronic gastroesophageal reflux, constipation, hematochezia, and her personal history of tubular adenomas of the colon. ?I last saw George in November, at which time we had reviewed her GI symptoms of constipation and reflux at that time. Overall, things seemed to be stable and I recommended that she use the omeprazole as needed. We did review that she would be due for a colonoscopy toward the latter part of 2024. ?She describes an episode of some constipation with associated straining and subsequent hematochezia over the summer. She had 2 episodes of that in January. She did not have any rectal bleeding by itself. She did start some Metamucil which helped relieve her constipation and she has had no further bleeding since that time. She does report that her bowel movements have remained regular off Metamucil at the present time. She denies any rectal pain, abdominal pain, melena, nor jaundice. ?She describes a sense of some dysphagia as well as heartburn. She is no longer using omeprazole regularly. Her last upper endoscopy in 2019 did show a small hiatal hernia but no sign of esophagitis or Gupta's esophagus. ?She denies any known family history of colorectal cancer. ?Laboratories in March showed a normal CBC with a hemoglobin of 14.7. She did have a transient elevation of her liver enzymes in March which normalized on April 18. She does not have any history of liver disease and does not use any significant amounts of alcohol. She was not on any new medication at that time. * ROS:?General/Constitutional:?Change in appetite?denies.?Chills?denies.?Fatigue?denies.?Ophthalmologic:?Comments?all negative.?ENT:?Comments?all negative.?Respiratory:?hemoptysis?denies.?Cough?denies.?Cardiovascular:?Chest pain?denies.?Orthopnea?denies.?Gastrointestinal:?Comments?See HPI for details.?Genitourinary:?Hematuria?denies.?Dysuria?denies.?Musculoskeletal:?Painful joints?denies.?Weakness?denies.?Skin:?Itching?denies.?Rash?denies.?Neurologic:?Headache?denies.?Seizures?denies.?Psychiatric:?Comments?all negative.? * Medical History:? * Surgical History:?Breast lum pectomy on the right for cancer as above 1999Tonsillectomy Benign breast lumpectomies * Hospitalization/Major Diagno stic Procedure:?No Hospitalization History. * Family History:?Father: dece ased 92 yrs, rectal cancer age 80's, diagnosed with Colon cancer.?Mother: .? No family history of liver cancer. * Social History:?Tobacco Use:?Tobacco Use/Smoking?Patient is a?nonsmoker.?Drugs/Alcohol:?Alcohol Screen?Did you have a drink containing alcohol in the past year??Yes,?How often did you have a drink containing alcohol in the past year??Never (0 point),?How many drinks did you have on a typical day when you were drinking in the past year??1 or 2 drinks (0 point),?Points?0,?Interpretation?Negative.?Miscellaneous:?Marital status: . 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 ???Nonsmoker; no sig alcohol. * Medications:?TakingZinc 10 M G Tablet as directed Orally Cats Claw 500 MG Capsule as directed Orally Multi Vitamin - Tablet 1 tablet Orally Once a dayVitamin D 50 MCG (1999) Capsule 1 capsule Orally Once a dayOmeprazole Magnesium 20 MG Tablet Delayed Release 1 tablet 30 minutes before morning meal Orally Once a dayFish Oil Omeprazole 20 MG Capsule Delayed Release 1 Orally Once a dayIbuprofen 600 MG Tablet 1 tablet with food or milk as needed Orally Three times a dayOmeprazole 20 MG Capsule Delayed Release TAKE ONE CAPSULE BY MOUTH EVERY MORNING Taking Zinc 10 MG Tablet as directed Orally Taking Cats Claw 500 MG Capsule as directed Orally Taking Multi Vitamin - Tablet 1 tablet Orally Once a dayTaking Vitamin D 50 MCG (1999 UT) Capsule 1 capsule Orally Once a dayTaking Omeprazole Magnesium 20 MG Tablet Delayed Release 1 tablet 30 minutes before morning meal Orally Once a dayTaking Fish Oil Taking Omeprazole 20 MG Capsule Delayed Release 1 Orally Once a dayTaking Ibuprofen 600 MG Tablet 1 tablet with food or milk as needed Orally Three times a dayTaking Omeprazole 20 MG Capsule Delayed Release TAKE ONE CAPSULE BY MOUTH EVERY MORNING Not-Taking/PRNFish Oil + D3 4875-2150 MG-UNIT Capsule 1 capsule Orally Three times a dayMedication List reviewed and reconciled with the patientNot-Taking/PRN Fish Oil + D3 6433-6751 MG-UNIT Capsule 1 capsule Orally Three times a dayMedication List reviewed and reconciled with the patient * Allergies:?N.K.D.A.yes[Aller gies Verified] Objective: * Vitals:?Wt: 159 lb 6 oz, Ht: 66.75 in, BMI:25.15 Index, BP: 000/00 mm Hg, Temp: 97.1. * Examination: ???General Examination: ?GENERAL APPEARANCE:?pleasant, well nourished, well developed, in no acute distress.?EYES:?sclera non-icteric.?ORAL CAVITY:?mucosa moist.?NECK/THYROID:?no cervical lymphadenopathy, neck supple.?SKIN:?nonjaundiced, no spider angiomata.?HEART:?S1, S2 normal.?LUNGS:?clear to auscultation bilaterally.?ABDOMEN:?normal bowel sounds, no guarding or rigidity, no guarding or rigidity, no masses palpable, soft, nontender, nondistended.?EXTREMITIES:?no edema.?NEUROLOGIC:?alert and oriented.? Assessment: * Assessment: 1.?Rectal bleed - K62.5 (Elenita chauhan)?2.?Chronic GERD - K21.9?3.?History of adenomatous polyp of colon - Z86.010? Overall, George appears q uite well. In regard to her recent rectal bleeding I advised her that seemed quite consistent with that of a perianal source such as internal hemorrhoids due to some constipation and straining. This does not seem to be bothering her any longer. I did recommend that she use Metamucil on a more regular basis with plenty of fluids so as to avoid further episodes of constipation and straining. Given her history of tubular adenomas in her last colonoscopy approaching 4 years ago, I did recommend a followup colonoscopy for further evaluation as well. We did review the rationale for that in regard to colorectal cancer prevention and/or early detection. I did advise her that she is not having any worrisome symptoms of reflux although does have some upper GI complaints of a sense of dysphagia which I advised her is most likely from some esophageal dysmotility due to ongoing reflux now that she is off omeprazole. As such, I did advise her to use the omeprazole regularly at least every other day to treat her symptoms of heartburn and prevent dysphagia. She did want to undergo an upper endoscopy as well due to her concerns about those symptoms. Full consent was obtained from her for both procedures, including risks of bleeding and perforation. The procedures will be done with monitored anesthesia care. George was comfortable with this plan. Thank you again for allowing me to participate in George's care. I shall continue to keep you advised of her progress. Plan: * Treatment: Notes: Use Metamucil for the constipation??2.?Chronic GERD?Procedure: UPPER GI ENDOSCOPY (Ordered for 04/25/2024)* with MACsched for 08/29/24 at 7:30 am Notes: Use omeprazole at least every other day??3.?History of adenomatous polyp of colon?Procedure: COLONOSCOPY (Ordered for 04/25/2024)* sched for 08/29/24 at 7:30 am macmiralax * Procedure Codes:?1036F TOBAC CO [id number] BP SCR NOT PRFRM REC REASON NOS * Preventive Medicine:? ??Counseling:?Care goal follow-up plan:?Above Normal BMI Follow-up?Giving encouragement to exercise,?BMI management provided?Yes.? ??Urinary Incontinence:?Urinary Incontinence?Assessment:?Absent,?Plan of care documented:?No, reason not specified.? ??Screenings:?Fall Risk Screening?Fall Risk Assessment:?No falls in the past year,?Screening:?No falls in the past year,?Assessment:?Not performed, no reason specified,?Plan of Care:?Not documented, no reason specified.? * Follow Up:?prn * * Sign off status: Completed true * Provider:?Vinicio Keane MD Date:? 024 Generated for Sherley barboza/Rosa/Dominga on:?09/20/2024 02:14 PM EST History and Physical Notes * HPI (History of Present Illness) Category Sub-Category Detail Notes Category Not es incontinence I saw George in the office today for evaluation of her chronic gastroesophageal reflux, constipation, hematochezia, and her personal history of tubular adenomas of the colon. I last saw George in November, at which time we had reviewed her GI symptoms of constipation and reflux at that time. Overall, things seemed to be stable and I recommended that she use the omeprazole as needed. We did review that she would be due for a colonoscopy toward the latter part of 2024. She describes an episode of some constipation with associated straining and subsequent hematochezia over the summer. She had 2 episodes of that in January. She did not have any rectal bleeding by itself. She did start some Metamucil which helped relieve her constipation and she has had no further bleeding since that time. She does report that her bowel movements have remained regular off Metamucil at the present time. She denies any rectal pain, abdominal pain, melena, nor jaundice. She describes a sense of some dysphagia as well as heartburn. She is no longer using omeprazole regularly. Her last upper endoscopy in 2019 did show a small hiatal hernia but no sign of esophagitis or Gupta's esophagus. She denies any known family history of colorectal cancer. Laboratories in March showed a normal CBC with a hemoglobin of 14.7. She did have a transient elevation of her liver enzymes in March which normalized on April 18. She does not have any history of liver disease and does not use any significant amounts of alcohol. She was not on any new medication at that time. Examination Category Sub-Category Detail Notes Category Not es General Examination GENERAL APPEARANCE: pleasant , well nourished, well developed, in no acute distress HEAD: EYES: sclera non-icteric EARS: NOSE: THROAT: NECK/THYROID: no cervical lymphade nopathy, neck supple HEART: S1, S2 normal CHEST: LUNGS: clear to auscultatio n bilaterally ABDOMEN: normal bowel sounds, no guarding or rigidity, no guarding or rigidity, no masses palpable, soft, nontender, nondistended NEUROLOGIC: alert and oriented SKIN: nonjaundiced, no spi ale angiomata EXTREMITIES: no edema PERIPHERAL PULSES: BACK: BREASTS: MUSCULOSKELETAL: MALE GENITOURINARY: LYMPH NODES: RECTAL EXAM: FEMALE GENITOURINARY: ORAL CAVITY: mucosa moist
--- OUTSIDE RECORDS SUMMARY | 2024-09-20 14:14 | XMS_ITS | Patient Health Record ---
Author Organization [facility] Address [address] [place] [address] Care Team Providers Care Log Pond Worker Name Role Phone Bisi Bolanos MD Primary Care Provider Vinicio Alexander Unavailable [phone] Allergies No Known Allergies Results Component Value Reference Range Notes Pathology (Not yet reviewed by provider) Interpretation: Performing Lab:[facility], [address] [place] [phone] Notes/Report: Name: Kell Hutchins Age/Sex: 79/F : 1945 Unit#: [id number] Attend Dr: Vinicio Keane MD Re08/29/24 Status : [facility] Location: [place] Disch: SPEC : [id number] RECD : 08/29/24 STATUS: CHUCK CHUNG NUM: [id number] VIET: 08/29/[address] [facility] [address]: Vinicio Keane MD ENTERED: 08/29/24 56 SP TYPE: Surgical OTHR DR: Bisi Bolanos MD ORDERED: HE Stain/9, Gross Micro L4/3 Diagnosis A. Colon, cecal poly p: Tubular adenoma; negative for high-grade dysplasia and carcinoma. B. Colon, ascending, polyp: Tubular adenoma; negative for high-grade dysplasia and carcinoma. C. Colon, at 50 cm, polyp: Tubular adenoma; negative for high-grade dysplasia and carcinoma. Clinical History Pre-Op Dx: Reflux, screening Post-Op Dx: Hiatal h ernia, reflux, colon polyps, diverticulosis, hemorrhoids Microscopic Description Microscopic sections reviewed. Material Received A. Cecal polyp B. Ascending colon polyp C. Polyp at 50 Gross Description Received in 3 parts. A. Received in forma alma labeled ?cecal polyp? are 2 fragments of pink white soft tissue measuring 0.2 and 0. 3 cm in greatest dimension which are wrapped in lens paper and entirely submitted for micros copic examination, 2 pieces in cassette A. B. Received in forma alma labeled ?ascending colon polyp? are 4 fragments of porras-white soft tissue measuring 0.1 -0.2 cm in greatest dimension which are wrapped in lens paper and entirely submitted f or microscopic examination, 4 pieces in cassette B. C. Received in forma alma labeled ?polyp at 50? is a fragment of porras-white soft tissue measuring 0.3 cm in greatest dimension which is wrapped in lens paper and entirely submitted for microscopic exam ination, 1 piece in cassette C. hi-[facility] CONTINUED ON NEXT PAGE Name: Kell Hutchins Age/Sex: 79/F : 1945 Unit#: [id number] Attend Dr: Vinicio Keane MD Re08/29/24 Status : [facility] Location: [place] Disch: SPEC : [id number] RECD: 08/29/24 STATUS: CHUCK CHUNG NUM: [id number] VIET: 08/29/[address] [facility] [address]: Vinicio Keane MD ENTERED: 08/29/24 56 SP TYPE: Surgical OTHR DR: Bisi Bolanos MD ORDERED: ANGUS Stain/9, Gross Micro L4/3 Copies To: Bisi Bolanos MD [facility] [place], [address] [address] [place], [place] [id number] Vinicio Keane MD [address] [place], [place] [id number] Signed (si gnature on file) Joelle Stephani 08/30/24 1147 END OF REPORT Reason For Referral No Information Medications Medication SIG (Take, Route, Frequency, Duration) Notes Start Date End Date Status Omeprazole Magnesium 20 MG 1 tablet 30 minutes before morning meal Orally Once a day for 30 day(s) Active Vitamin D 50 MCG (2000 UT) 1 capsule Orally Once a day for 30 day(s) Active Omeprazole 20 MG 1 Orally Once a day for 30 day(s) 06/08/2022 Active Fish Oil Active Cats Claw 500 MG as directed Orally Active Zinc 10 MG as directed Orally Active Multi Vitamin - 1 tablet Orally Once a day for 30 day(s) Active Fish Oil + D3 1846-6570 MG-UNIT 1 capsule Orally Three times a day for 30 day(s) Not-Taking Omeprazole 20 MG TAKE ONE CAPSULE BY MOUTH EVERY MORNING Active Ibuprofen 600 MG 1 tablet with food o r milk as needed Orally Three times a day 12/16/2023 Active Immunizations Vaccine Route Administration Date Status Comme nts Influenza Unknown 03/18/2019 Administered Influenza Unknown 04/15/2020 Administered Influenza Unknown 05/03/2023 Administered Social History Tobacco Use: Social History Observation [...] Negative Section Notes: Nonsmoker; no sig alcohol Nonsmoker; no sig alcohol Nonsmoker; no sig alcohol Nonsmoker; no sig alcohol Nonsmoker; no sig alcohol Problems Problem Type SNOMED Code ICD Code Onset Dates Problem Status W/U Status Risk Notes Problem 293210433 Encounter for screening for malignant neoplasm of colon (Z12.11) Active confirmed Problem History of adenomatous polyp of colon (489038883) History of adenomatous polyp of colon (Z86.010) Active confirmed Problem Constipation (34756132) Constipation (K59.00) Active confirmed Problem Diverticular disease of colon (132651107) Diverticulosis of large intestine without perforation or abscess without bleeding (K57.30) Active confirmed Problem Gastroesophageal reflux disease (475705148) Gastroesophageal reflux disease (K21.9) Active confirmed Problem 457223285 Gastroesophageal reflux disease without esophagitis (K21.9) Active confirmed Problem 856023613 Gastroesophageal reflux disease, esophagitis presence not specified (K21.9) Active confirmed Problem Hiatal hernia (66198683) Hiatal hernia (K44.9) Active confirmed Problem Hemorrhage of rectum and anus (375411969) Rectal bleed (K62.5) Active confirmed Problem 09620546 Constipation, unspecified constipation type (K59.00) Active confirmed Problem Gastroesophageal reflux disease (876834586) GERD (gastroesophageal reflux disease) (K21.9) Active confirmed Problem Gastroesophageal reflux disease (901086173) Chronic GERD (K21.9) Active confirmed Vital Signs Temperature 97.1 degrees Fahrenheit 04/25/2024 Blood pressure diastolic 00 mm Hg 04/25/2024 Height 66.75 in 04/25/2024 Blood pressure systolic 000 mm Hg 04/25/2024 Weight 159 lb 6 oz lbs 04/25/2024 BMI 25.15 kg/m2 04/25/2024 Encounters Encounter Location Date Provider Diagnosis [facility] [address] [place] [phone] 08/29/2024 Vinicio Keane Colon cancer screeni ng Z12.11 ; Colon polyps K63.5 ; Diverticulosis of large intestine without perforation or abscess without bleeding K57.30 ; Other hemorrhoids K64.8 ; Gastroesophageal reflux disease K21.9 and Hiatal hernia K44.9 [facility] [address] [place] [phone] 12/16/2023 Vinicio Keane Gastroesophageal ref lux disease, esophagitis presence not specified K21.9 ; Hiatal hernia K44.9 ; Constipation K59.00 and History of adenomatous polyp of colon Z86.010 [facility] [address] [place] [phone] 04/25/2024 Vinicio Keane Rectal bleed K62.5 ; Chronic GERD K21.9 and History of adenomatous polyp of colon Z86.010 [facility] [address] [place] [phone] 02/10/2024 Vinicio Keane Assessments Encounter Date Diagnosis (ICD Code) Assessment Notes Treatment Notes Treatment Clinical Notes Section Notes 08/29/2024 Colon cancer screening (ICD-10 - Z12.11) 08/29/2024 Colon polyps (ICD-10 - K63.5) 12/16/2023 Gastroesophageal reflux disease, esophagitis presence not specified (ICD-10 - K21.9) Repeat colonoscopy toward the end of 2024 Overall, Alisia appears quite well. It does appear that her healthier diet and weight loss have definitely helped her to feel better both in regard to her reflux and constipation. As such, I did advise her to certainly continue this. She did ask about possibly stopping omeprazole and I advised her that I think that would be fine given her otherwise negative upper endoscopy in the past in regard to any esophagitis or Gupta's esophagus. Hopefully by having lost weight and continue routine healthy her reflux will be stable without any chronic acid suppression. However, I did advise her that if the reflux worsens again she could certainly use the omeprazole either daily or as needed. I advised her that at this point I don't think any further intervention is required. We did review that she will be due for a followup colonoscopy for the end of 2024. I did advise to contact me prior to that if she has any problems or questions I can be of assistance with. Alisia was very comfortable with this plan. Thank you again for allowing me to participate in Alisia's care. I shall continue to keep you advised of her progress. 12/16/2023 Hiatal hernia (ICD-10 - K44.9) Overall, Alisia appears quite well. It does appear that her healthier diet and weight loss have definitely helped her to feel better both in regard to her reflux and constipation. As such, I did advise her to certainly continue this. She did ask about possibly stopping omeprazole and I advised her that I think that would be fine given her otherwise negative upper endoscopy in the past in regard to any esophagitis or Gupta's esophagus. Hopefully by having lost weight and continue routine healthy her reflux will be stable without any chronic acid suppression. However, I did advise her that if the reflux worsens again she could certainly use the omeprazole either daily or as needed. I advised her that at this point I don't think any further intervention is required. We did review that she will be due for a followup colonoscopy for the end of 2024. I did advise to contact me prior to that if she has any problems or questions I can be of assistance with. Alisia was very comfortable with this plan. Thank you again for allowing me to participate in Alisia's care. I shall continue to keep you advised of her progress. 04/25/2024 Rectal bleed (ICD-10 - K62.5) Use Metamucil for the constipation Overall, Alisia appears quite well. In regard to her [...] will be done with monitored anesthesia care. Alisia was comfortable with this plan. Thank you again for allowing me to participate in Alisia's care. I shall continue to keep you advised of her progress. 04/25/2024 Chronic GERD (ICD-10 - K21.9) Use omeprazole at least every other day Overall, Alisia appears quite well. In regard to her [...] will be done with monitored anesthesia care. Alisia was comfortable with this plan. Thank you again for allowing me to participate in Alisia's care. I shall continue to keep you advised of her progress. 08/29/2024 Diverticulosis of large intestine without perforation or abscess without bleeding (ICD-10 - K57.30) 12/16/2023 Constipation (ICD-10 - K59.00) Overall, Alisia appears quite well. It does appear that her healthier diet and weight loss have definitely helped her to feel better both in regard to her reflux and constipation. As such, I did advise her to certainly continue this. She did ask about possibly stopping omeprazole and I advised her that I think that would be fine given her otherwise negative upper endoscopy in the past in regard to any esophagitis or Gupta's esophagus. Hopefully by having lost weight and continue routine healthy her reflux will be stable without any chronic acid suppression. However, I did advise her that if the reflux worsens again she could certainly use the omeprazole either daily or as needed. I advised her that at this point I don't think any further intervention is required. We did review that she will be due for a followup colonoscopy for the end of 2024. I did advise to contact me prior to that if she has any problems or questions I can be of assistance with. Alisia was very comfortable with this plan. Thank you again for allowing me to participate in Alisia's care. I shall continue to keep you advised of her progress. 04/25/2024 History of adenomatous polyp of colon (ICD-10 - Z86.010) Overall, Alisia appears quite well. In regard to her [...] will be done with monitored anesthesia care. Alisia was comfortable with this plan. Thank you again for allowing me to participate in Alisia's care. I shall continue to keep you advised of her progress. 08/29/2024 Other hemorrhoids (ICD-10 - K64.8) 12/16/2023 History of adenomatous polyp of colon (ICD-10 - Z86.010) Overall, Alisia appears quite well. It does appear that her healthier diet and weight loss have definitely helped her to feel better both in regard to her reflux and constipation. As such, I did advise her to certainly continue this. She did ask about possibly stopping omeprazole and I advised her that I think that would be fine given her otherwise negative upper endoscopy in the past in regard to any esophagitis or Gupta's esophagus. Hopefully by having lost weight and continue routine healthy her reflux will be stable without any chronic acid suppression. However, I did advise her that if the reflux worsens again she could certainly use the omeprazole either daily or as needed. I advised her that at this point I don't think any further intervention is required. We did review that she will be due for a followup colonoscopy for the end of 2024. I did advise to contact me prior to that if she has any problems or questions I can be of assistance with. Alisia was very comfortable with this plan. Thank you again for allowing me to participate in Alisia's care. I shall continue to keep you advised of her progress. 08/29/2024 Gastroesophageal reflux disease (ICD-10 - K21.9) 08/29/2024 Hiatal hernia (ICD-10 - K44.9) Plan Of Treatment Pending Test Test Name Order Date Pathology 08/29/2024 Future Test Test Name Order Date UPPER GI ENDOSCOPY 04/03/2020 COLONOSCOPY 04/03/2020 UPPER GI ENDOSCOPY 04/25/2024 COLONOSCOPY 04/25/2024 Insurance Providers Payer Name Payer Address Payer Phone Subscriber Number Group Number Insured Name Patient Relationship to Insured Coverage Start Date Coverage End Date MEDICARE OF [place] [address] [place] [address] [id number] ALISIA HUTCHINS Self - patient is the insured [employer] CLAIMS [address] [place] [address] [phone] [id number] ALISIA HUTCHINS Self - patient is the insured Medical (General) History Medical History History ICD Code Denies [place],DM,CVA,Lung disease,renal dise ase Breast cancer with chemo and radiation 1998--on the right with lymph node involvement Neg. colonoscopy in 03/[address] Meg hair EGD in 03/[address] Muhammad neg for Bar rett's or esophagitis PMR diagnosed 08/18/2020 GERD-EGD 05/2020- small hiat al hernia--no esophagitis; no Gupta's esophagus seen on the biopsies Colonoscopy-05/2020-several tubular zechariah omas removed Hematuria for which she was seen in the ER in June of 2023. A CT scan raised a suspicion of a tiny stone that had passed in the bladder. She is scheduled to see a urologist later this year. Surgical History Surgery Date(Month/Year) Breast lumpectomy on the right for radha r as above 1998 Tonsillectomy Benign breast lumpectomies
--- OUTSIDE RECORDS SUMMARY | 2024-09-20 14:15 | XMS_ITS ---
Author Organization [facility] Address [address] [place] [address] Care Team Providers Care Silversmith Apprentice Name Role Phone Bisi Bolanos MD Primary Care Provider Vinicio Alexander [phone] REASON FOR VISIT gerd,hx polyps,rectal bleeding Problems Problem Type SNOMED Code ICD Code Onset Dates Problem Status W/U Status Risk Notes Problem Diverticular disease of colon (498680451) Diverticulosis of large intestine without perforation or abscess without bleeding (K57.30) Active confirmed Problem Gastroesophageal reflux disease (831909878) Gastroesophageal reflux disease (K21.9) Active confirmed Encounters Encounter Location Date Provider Diagnosis [facility] Out[place] [address] [place] [phone] 08/29/2024 Vinicio Keane Colon cancer screeni ng [...] * GEORGE IRVIN JDOB:[birth year] (79 yo F)Acc No.[id number]:08/29/2024 EGD&COL/MAC Patient:GEORGE LEVINE Provider:?Vinicio Keane MD :1945???Age:79 Y???Sex:Female D ate:08/29/2024 Address:[address] [place], [place] [id number] Pcp:Bisi Bolanos MD Subjective: * Chief Complaints: * ???1. Gerd,hx polyps,rectal bleeding. * Medical History:? Objective: * Vitals:? Assessment: * Assessment: 1.?Colon cancer screening - Z12.11 (Primary)???2.?Colon polyps - K63.5???3.?Diverticulosis of large intestine without perforation or abscess without bleeding - K57.30???4.?Other hemorrhoids - K64.8???5.?Gastroesophageal reflux disease - K21.9???6.?Hiatal hernia - K44.9??? Plan: * Treatment: * Procedure Codes:?16996 COLON OSCOPY AND BIOPSY, Modifiers: PT , 0529F INTRVL 3+YRS PTS CLNSCP DOCD, Modifiers: 8P , 0528F RCMND FLW-UP 10 YRS DOCD, Modifiers: 1P , 18354 UPPR GI ENDOSCOPY, DIAGNOSIS * * The named appointment provid er may or may not be the originator of this progress note, and it is not deemed complete until electronically signed by the appointment provider. Sign off status: Pending * Provider:?Vinicio Keane MD Date:? 025 Generated for Sherley barboza/Rosa/eTransmitting on:?09/20/2024 02:14 PM EST
== END 2024-09-20 14:45 | disposition home or self-care (01) ==
PROVIDERS: PCP Internal Medicine; Visit Provider Internal Medicine
DX: R27.0 Ataxia, unspecified (principal)

== ENCOUNTER 2024-09-20 11:34 | Outpatient (REF) | payer MEDICARE, SELFPAY ==
[2024-09-20 16:31] LABS: MANUAL DIFF FLAG NO
[2024-09-20 16:41] LABS: Basophils Absolute Auto 0.1 X10*3/uL (0.0-0.2); Basophils Percent Auto 0.7 % (0-2); Eosinophils Absolute Auto 0.3 X10*3/uL (0.0-0.4); Eosinophils Percent Auto 2.7 % (0-4); Hematocrit 44.3 % (37.0-47.0); Hemoglobin 15.3 g/dl (12.0-16.0); Imm Gran Abs Auto 0.06 X10*3/uL (0.00-0.03); Imm Gran Pct Auto 0.7 % (0.0-0.4); Lymphocytes Absolute Auto 3.1 X10*3/uL (1.2-4.9); Lymphocytes Percent Auto 33.2 % (20-40); Mean Corpuscular HGB Conc 34.5 g/dl (31.0-35.0); Mean Corpuscular Hemoglobin 30.1 pg (27.0-33.0); Mean Corpuscular Volume 87.2 fL (80.0-98.0); Mean Platelet Volume 10.7 fL (9.4-12.3); Monocytes Absolute Auto 0.8 X10*3/uL (0.1-1.2); Monocytes Percent Auto 9.1 % (2-11); Neutrophils Percent Auto 53.6 % (45-73); Platelet Count 281 X10*3/uL (160-400); Red Blood Count 5.08 X10*6/uL (4.20-5.50); Red Cell Distribution Width 11.9 % (11.0-16.0); White Blood Count 9.2 X10*3/uL (4.8-10.8)
[2024-09-20 17:06] LABS: Alanine Aminotransferase 20 U/L (0-31); Alkaline Phosphatase 63 U/L (39-117); Anion Gap 13 (12-20); Aspartate Amino Transferase 21 U/L (5-31); Bilirubin Total 0.6 mg/dL (0.0-1.0); Blood Urea Nitrogen 10 mg/dL (9-16); Calcium 9.3 mg/dL (8.4-10.2); Carbon Dioxide 25 mmol/L (22-29); Chloride 105 mmol/L (96-108); Estimated Glomerular Filt Rate > 60; Glucose Random 86 mg/dL (60-115); Potassium 4.6 mmol/L (3.3-5.1); Sodium 138 mmol/L (135-145); Total Protein 7.2 g/dL (6.5-8.0)
== END 2024-09-20 11:35 | disposition home or self-care (01) ==
LOC: HO.HMGCLDS 11:34
PROVIDERS: PCP Internal Medicine; Visit Provider Internal Medicine
DX: R27.0 Ataxia, unspecified (principal)
CPT/HCPCS: 36415; 80053; 85025; 96127; 99212

== ENCOUNTER 2024-09-27 15:53 | Outpatient (REF) | payer MEDICARE, SELFPAY ==
--- NOTE | ~2024-09-27 | CT_ITS ---
EXAMINATION: CT HEAD WITHOUT CONTRAST CLINICAL INFORMATION: Ataxia unspecified. COMPARISON: None available. TECHNIQUE: Contiguous axial imaging was performed from the skull base to vertex without intravenous administration of contrast. This CT examination was performed using dose optimization techniques as appropriate, variously including the following: *Automated exposure control *Adjustment of mA and/or kV according to patient size (this includes techniques or standardized protocols for targeted exams where dose is matched to indication/reason for exam; i.e. extremities or head) *Use of iterative reconstruction technique FINDINGS: There is no evidence of intracranial hemorrhage or extra-axial fluid collection. There is no mass effect, or edema. No CT evidence of acute territorial infarct. Ventricles, sulci, and cisterns are normal in size and configuration for patient age. No hydrocephalus. No midline shift. Negative hyperdense MCA sign. Negative insular ribbon sign. Patchy periventricular and deep white matter hypoattenuation is consistent with mild small vessel ischemic changes. Normal pituitary. 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 Globes and orbital contents image normally. No extracranial soft tissue abnormalities. The paranasal sinuses, mastoid air cells, and tympanic cavities are normally aerated. No suspicious bony abnormalities. There are no acute fractures evident. CT/CT head/brain wo IV con IMPRESSION: 1. No acute intracranial abnormality. Mild chronic white matter changes. 2. 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 Electronically signed by: Derek Lieberman MD 09/27/2024 04:48 PM EDT
--- OUTSIDE RECORDS SUMMARY | 2024-09-27 19:14 | XMS_ITS ---
Author Organization [facility] Address [address] [place] [address] Care Team Providers Care Antenna Specialist Name Role Phone Bisi Bolanos MD Primary Care Provider Vinicio Alexander Unavailable [phone] Allergies No Known Allergies REASON FOR VISIT [...] 30 day(s) Active Fish Oil + D3 5874-8267 MG-UNIT 1 capsule Orally Three times a [...] Notes Problem Hemorrhage of rectum and anus (108077789) Rectal bleed (K62.5) Active confirmed Problem Gastroesophageal reflux disease (033502884) Chronic GERD (K21.9) Active confirmed Vital Signs Temperature 97.1 degrees Fahrenheit 04/25/20 24 Blood pressure systolic 000 mm Hg 04/25/20 24 Blood pressure diastolic 00 mm Hg 024 Height 66.75 in 04/25/2024 Weight 159 lb 6 oz lbs 04/25/2024 BMI 25.15 kg/m2 04/25/2024 Encounters Encounter Location Date Provider Diagnosis [facility] [address] [facility] [address] [place] [address] 04/25/2024 Vinicio Keane Rectal bleed K62.5 ; [...] * GEORGE IRVIN JDOB:[birth year] (78 yo F)Acc No.[id number]:04/25/2024 Progress Notes Patient:?GEORGE IRVIN Provider:?Vinicio Keane MD :1945???Age:78 Y???Sex:Female D ate:04/25/2024 Address:[address] [place] [address], [facility] Pcp:Bisi Bolanos MD Subjective: * Chief Complaints: [...] (0 point),?Points?0,?Interpretation?Negative.?Miscellaneous:?Marital status: . Occupation: Retired from [employer] office. ???Nonsmoker; no sig alcohol. [...] MOUTH EVERY MORNING Not-Taking/PRNFish Oil + D3 8253-6066 MG-UNIT Capsule 1 capsule Orally Three times a dayMedication List reviewed and reconciled with the patientNot-Taking/PRN Fish Oil + D3 9118-0733 MG-UNIT Capsule 1 capsule Orally Three times [...] am macmiralax * Procedure Codes:?1036F TOBAC CO NON-[id number] BP SCR NOT PRFRM REC REASON NOS [...] MD Date:? 024 Generated for Sherley barboza/Rosa/Dominga on:?09/27/2024 07:14 PM EDT History and Physical Notes * HPI (History [...]
--- OUTSIDE RECORDS SUMMARY | 2024-09-27 19:14 | XMS_ITS ---
Author Organization [facility] Address [address] [place] [address] Care Team Providers Care Bath Design Sales Consultant Name Role Phone Bisi Bolanos MD Primary Care Provider Vinicio Alexander [phone] Encounters Encounter Location Date Provider Diagnosis [facility] [address] [place] [address] 02/10/2024 Vinicio Keane Plan Of Treatment No Information Progress Notes * GEORGE IRVINDOB:[birth year] (78 yo F)Acc No.[id number]:02/10/2024 Patient:?GEORGE IRVIN :1945???Age:78 Y???Sex:Female Address:[address], [place], [address] * true * Date:? Generated for Sherley barboza/Rosa/eTransmitting on:?09/27/2024 07:13 PM EDT
--- OUTSIDE RECORDS SUMMARY | 2024-09-27 19:14 | XMS_ITS | Patient Health Record ---
Author Organization [facility] Address [address] [place] [address] Care Team Providers Care Manager Balance Name Role Phone Bisi Bolanos MD Primary Care Provider Vinicio Alexander Unavailable [phone] Allergies No Known Allergies Results Component Value Reference Range Notes Pathology (Not yet reviewed by provider) Interpretation: Performing Lab:[facility], [address] [place] [phone] Notes/Report: Name: Kell Hutchins Age/Sex: 79/F : 1945 Unit#: [id number] Attend Dr: Vinicio Keane MD Re08/29/24 Status : [facility] Location: [place] Disch: SPEC : [id number] RECD : 08/29/24 STATUS: CHUCK CHUNG NUM: [id number] VIET: 08/29/24 [facility] DR: Vinicio Keane MD ENTERED: 08/29/24 58 [...] exam ination, 1 piece in cassette [facility] CONTINUED ON NEXT PAGE Name: Kell Hutchins Age/Sex: 79/F : 1945 Unit#: [id number] Attend Dr: Vinicio Keane MD Re08/29/24 Status : [facility] Location: [place] Disch: SPEC : [id number] RECD: 08/29/24 STATUS: CHUCK CHUNG NUM: [id number] VIET: 08/29/24 [facility] [address]: Vinicio Keane MD ENTERED: 08/29/24 56 SP TYPE: Surgical OTHR DR: Bisi Bolanos MD ORDERED: ANGUS Stain/9, Gross Micro L4/3 Copies To: Bisi Bolanos MD [facility] [place], [address] [address] [place], [place] [id number] Vinicio Keane MD [address] [place], [place] [phone] Signed (si gnature on file) Joelle [place] 08/30/24 1147 END OF REPORT Reason For [...] 30 day(s) Active Fish Oil + D3 1460-3116 MG-UNIT 1 capsule Orally Three times a [...] Problem Status W/U Status Risk Notes Problem [id number] Encounter for screening for malignant neoplasm of colon (Z12.11) Active confirmed Problem History of adenomatous polyp of colon (743062852) History of adenomatous polyp of colon (Z86.010) Active confirmed Problem Constipation (31725682) Constipation (K59.00) Active confirmed Problem Diverticular disease of colon (993798913) Diverticulosis of large intestine without perforation or abscess without bleeding (K57.30) Active confirmed Problem Gastroesophageal reflux disease (565522982) Gastroesophageal reflux disease (K21.9) Active confirmed Problem 502254978 Gastroesophageal reflux disease without esophagitis (K21.9) Active confirmed Problem 471666050 Gastroesophageal reflux disease, esophagitis presence not specified (K21.9) Active confirmed Problem Hiatal hernia (50655122) Hiatal hernia (K44.9) Active confirmed Problem Hemorrhage of rectum and anus (169567539) Rectal bleed (K62.5) Active confirmed Problem 40757990 Constipation, unspecified constipation type (K59.00) Active confirmed Problem Gastroesophageal reflux disease (263287171) GERD (gastroesophageal reflux disease) (K21.9) Active confirmed Problem Gastroesophageal reflux disease (326420910) Chronic GERD (K21.9) Active confirmed Vital Signs Temperature 97.1 degrees Fahrenheit 04/25/2024 Blood pressure diastolic 00 mm Hg 04/25/2024 Height 66.75 in 04/25/2024 Blood pressure systolic 000 mm Hg 04/25/2024 Weight 159 lb 6 oz lbs 04/25/2024 BMI 25.15 kg/m2 04/25/2024 Encounters Encounter Location Date Provider Diagnosis [facility] Outpatient [address] [place] [phone] 08/29/2024 Vinicio Keane Colon cancer screeni ng Z12.11 ; Colon polyps K63.5 ; Diverticulosis of large intestine without perforation or abscess without bleeding K57.30 ; Other hemorrhoids K64.8 ; Gastroesophageal reflux disease K21.9 and Hiatal hernia K44.9 [facility] [address] [place] [address] 12/16/2023 Vinicio Keane Gastroesophageal ref lux disease, esophagitis presence not specified K21.9 ; Hiatal hernia K44.9 ; Constipation K59.00 and History of adenomatous polyp of colon Z86.010 [facility] [address] [place] [address] 04/25/2024 Vinicio Keane Rectal bleed K62.5 ; Chronic GERD K21.9 and History of adenomatous polyp of colon Z86.010 [facility] [address] [place] [address] 02/10/2024 Vinicio Keane Assessments Encounter Date Diagnosis [...] Date MEDICARE OF [place] [address] [place] [address] [id number] ALISIA HUTCHINS Self - patient is the insured [employer] ATT[employer] CLAIMS [address] [place] [address] [id number] ALISIA HUTCHINS Self - patient is the insured Medical (General) History Medical History History ICD Code Denies DE,DM,CVA,Lung disease,renal dise ase Breast cancer with chemo [...]
--- OUTSIDE RECORDS SUMMARY | 2024-09-27 19:14 | XMS_ITS ---
Author Organization [facility] Address [address] [place] [address] Care Team Providers Care Incident Response Coordinator Name Role Phone Bisi Bolanos MD Primary Care Provider Vinicio Alexander [phone] REASON FOR VISIT gerd,hx polyps,rectal bleeding Problems Problem Type SNOMED Code ICD Code Onset Dates Problem Status W/U Status Risk Notes Problem Diverticular disease of colon (040841190) Diverticulosis of large intestine without perforation or abscess without bleeding (K57.30) Active confirmed Problem Gastroesophageal reflux disease (775537859) Gastroesophageal reflux disease (K21.9) Active confirmed Encounters Encounter Location Date Provider Diagnosis [facility] Outpatient [address] [place] [phone] 08/29/2024 Vinicio Keane Colon cancer screeni ng [...] * GEORGE IRVIN JDOB:[birth year] (79 yo F)Acc No.[id number]:08/29/2024 EGD and COL/MAC Patient:GEORGE LEVINE Provider:?Vinicio Keane MD :1945???Age:79 Y???Sex:Female D ate:08/29/2024 Address:[address] [place], [place] [id number] Pcp:Bisi Bolanos MD Subjective: * Chief Complaints: * ???1. Gerd,hx polyps,rectal bleeding. * Medical History:? Objective: * Vitals:? Assessment: * Assessment: 1.?Colon cancer screening - Z12.11 (Primary)???2.?Colon polyps - K63.5???3.?Diverticulosis of large intestine without perforation or abscess without bleeding - K57.30???4.?Other hemorrhoids - K64.8???5.?Gastroesophageal reflux disease - K21.9???6.?Hiatal hernia - K44.9??? Plan: * Treatment: * Procedure Codes:?82526 COLON OSCOPY AND BIOPSY, Modifiers: PT , 0529F INTRVL 3+YRS PTS CLNSCP DOCD, Modifiers: 8P , 0528F RCMND FLW-UP 10 YRS DOCD, Modifiers: 1P , 70167 UPPR GI ENDOSCOPY, DIAGNOSIS * * The named appointment provid er may or may not be the originator of this progress note, and it is not deemed complete until electronically signed by the appointment provider. Sign off status: Pending * Provider:?Vinicio Keane MD Date:? 025 Generated for Sherley barboza/Rosa/eTransmitting on:?09/27/2024 07:14 PM EDT
== END 2024-09-27 15:54 | disposition home or self-care (01) ==
LOC: HO.CT 15:53
PROVIDERS: PCP Internal Medicine; Visit Provider Internal Medicine
DX: I67.89 Other cerebrovascular disease (principal); R27.0 Ataxia, unspecified
CPT/HCPCS: 70450

== ENCOUNTER → 2024-09-27 15:55 | Outpatient (BNV) | payer MEDICARE, SELFPAY | PROVIDERS: PCP Internal Medicine; Visit Provider Radiology Diagnostic Radiology | DX: R27.0 Ataxia, unspecified (principal) | CPT/HCPCS: 70450 ==

== ENCOUNTER 2024-10-09 12:49 | Outpatient (REF) | payer MEDICARE, SELFPAY ==
--- NOTE | ~2024-10-09 | US_ITS ---
CLINICAL HISTORY: N39.0 - Urinary tract infection, site not specified US RENAL Comparison: US/SR - US RENAL BI - 05/17/22 15:30 EDT Findings: Right kidney is10.3 cm length. Left kidney is10.7 cm length. Normal renal cortical thickness and echotexture bilaterally. Pyelonephritis cannot be excluded sonographically. No hydronephrosis, shadowing calculus or cortical mass lesion. IMPRESSION: Unremarkable study. This document has been electronically signed by: Madisyn Murrell DO on 10/10/2024 13:19:18
--- OUTSIDE RECORDS SUMMARY | 2024-10-09 15:29 | XMS_ITS | Patient Health Record ---
Author Organization [facility] Address [address] [place] [address] Care Team Providers Care Pairer Substandard Name Role Phone Bisi Bolanos MD Primary Care Provider Vinicio Alexander Unavailable [phone] Allergies No Known Allergies Results Component Value Reference Range Notes Pathology (Not yet reviewed by provider) Interpretation: Performing Lab:[facility], [address] [place] [phone] Notes/Report: Name: Kell Hutchins Age/Sex: 79/F : 1945 Unit#: [id number] Attend Dr: Vinicio Keane MD Re08/29/24 Status : [facility] Location: [place] Disch: SPEC : [id number] RECD : 08/29/24 STATUS: CHUCK CHUNG NUM: [id number] VIET: 08/29/[address] [facility] [address]: Vinicio Keane MD ENTERED: 08/29/24 58 [...] exam ination, 1 piece in cassette [facility] CONTINUED ON NEXT PAGE Name: Kell Hutchins Age/Sex: 79/F : 1945 Unit#: [id number] Attend Dr: Vinicio Keane MD Re08/29/24 Status : [facility] Location: [place] Disch: SPEC : [id number] RECD: 08/29/24 STATUS: CHUCK CHUNG NUM: [id number] VIET: 08/29/[address] [facility] [address]: Vinicio Keane MD ENTERED: 08/29/24 56 SP TYPE: Surgical OTHR DR: Bisi Bolanos MD ORDERED: ANGUS Stain/9, Gross Micro L4/3 Copies To: Bisi Bolanos MD [facility] [place] Care, [address] [address] [place], [place] [phone] Vinicio Keane MD [address] [place], [place] [phone] Signed (si gnature on file) Joelle Manila 08/30/24 1147 END OF REPORT Reason For [...] 30 day(s) Active Fish Oil + D3 8821-3524 MG-UNIT 1 capsule Orally Three times a [...] Problem Status W/U Status Risk Notes Problem 517472744 Encounter for screening for malignant neoplasm of colon (Z12.11) Active confirmed Problem History of adenomatous polyp of colon (265681861) History of adenomatous polyp of colon (Z86.010) Active confirmed Problem Constipation (72248230) Constipation (K59.00) Active confirmed Problem Diverticular disease of colon (832540346) Diverticulosis of large intestine without perforation or abscess without bleeding (K57.30) Active confirmed Problem Gastroesophageal reflux disease (129162419) Gastroesophageal reflux disease (K21.9) Active confirmed Problem 327551286 Gastroesophageal reflux disease without esophagitis (K21.9) Active confirmed Problem 901398347 Gastroesophageal reflux disease, esophagitis presence not specified (K21.9) Active confirmed Problem Hiatal hernia (22316535) Hiatal hernia (K44.9) Active confirmed Problem Hemorrhage of rectum and anus (340348158) Rectal bleed (K62.5) Active confirmed Problem 02896066 Constipation, unspecified constipation type (K59.00) Active confirmed Problem Gastroesophageal reflux disease (064576054) GERD (gastroesophageal reflux disease) (K21.9) Active confirmed Problem Gastroesophageal reflux disease (050199010) Chronic GERD (K21.9) Active confirmed Vital Signs Temperature 97.1 degrees Fahrenheit 04/25/2024 Blood pressure diastolic 00 mm Hg 04/25/2024 Height 66.75 in 04/25/2024 Blood pressure systolic 000 mm Hg 04/25/2024 Weight 159 lb 6 oz lbs 04/25/2024 BMI 25.15 kg/m2 04/25/2024 Encounters Encounter Location Date Provider Diagnosis [facility] [place] Out[place] [address] [place] [phone] 08/29/2024 Vinicio Keane Colon cancer screeni ng Z12.11 ; Colon polyps K63.5 ; Diverticulosis of large intestine without perforation or abscess without bleeding K57.30 ; Other hemorrhoids K64.8 ; Gastroesophageal reflux disease K21.9 and Hiatal hernia K44.9 [facility] [address] [place] [address] 12/16/2023 Vinicio Keane Gastroesophageal ref lux disease, esophagitis presence not specified K21.9 ; Hiatal hernia K44.9 ; Constipation K59.00 and History of adenomatous polyp of colon Z86.010 [facility] [address] [place] [address] 04/25/2024 Vinicio Keane Rectal bleed K62.5 ; Chronic GERD K21.9 and History of adenomatous polyp of colon Z86.010 [facility] [address] [place] [address] 02/10/2024 Vinicio Keane Assessments Encounter Date Diagnosis [...] Date MEDICARE OF [place] [address] [place] [address] [id number] ALISIA HUTCHINS Self - patient is the insured [employer] ATTN CLAIMS [address] [place] [address] [phone] [id number] ALISIA HUTCHINS Self - patient is the insured Medical (General) History Medical History History ICD Code Denies [place],DM,CVA,Lung disease,renal dise ase Breast cancer with chemo [...]
--- OUTSIDE RECORDS SUMMARY | 2024-10-09 15:29 | XMS_ITS ---
Author Organization [facility] Address [address] [place] [address] Care Team Providers Care Compressor Technician Name Role Phone Bisi Bolanos MD Primary Care Provider Vinicio Alexander Unavailable [phone] Allergies No Known Allergies REASON FOR VISIT [...] 30 day(s) Active Fish Oil + D3 4633-7273 MG-UNIT 1 capsule Orally Three times a [...] Notes Problem Hemorrhage of rectum and anus (430451760) Rectal bleed (K62.5) Active confirmed Problem Gastroesophageal reflux disease (015666023) Chronic GERD (K21.9) Active confirmed Vital Signs Temperature 97.1 degrees Fahrenheit 04/25/20 24 Blood pressure systolic 000 mm Hg 04/25/20 24 Blood pressure diastolic 00 mm Hg 024 Height 66.75 in 04/25/2024 Weight 159 lb 6 oz lbs 04/25/2024 BMI 25.15 kg/m2 04/25/2024 Encounters Encounter Location Date Provider Diagnosis [facility] [address] [place] [address] 04/25/2024 Vinicio Keane Rectal bleed K62.5 ; [...] * GEORGE IRVIN JDOB:[birth year] (78 yo F)Acc No.[id number]:04/25/2024 Progress Notes Patient:?GEORGE IRVIN Provider:?Vinicio Keane MD :1945???Age:78 Y???Sex:Female D ate:04/25/2024 Address:[address] [place] [address], [facility] Pcp:Bisi Bolanos MD Subjective: * Chief Complaints: [...] (0 point),?Points?0,?Interpretation?Negative.?Miscellaneous:?Marital status: . 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 ???Nonsmoker; no sig alcohol. [...] MOUTH EVERY MORNING Not-Taking/PRNFish Oil + D3 1760-1930 MG-UNIT Capsule 1 capsule Orally Three times a dayMedication List reviewed and reconciled with the patientNot-Taking/PRN Fish Oil + D3 7865-9492 MG-UNIT Capsule 1 capsule Orally Three times [...] am macmiralax * Procedure Codes:?1036F TOBAC CO NON-HKIWH6404 BP SCR NOT PRFRM REC REASON NOS [...] MD Date:? 024 Generated for Sherley barboza/Rosa/Dominga on:?10/09/2024 03:29 PM EDT History and Physical Notes * [...]
--- OUTSIDE RECORDS SUMMARY | 2024-10-09 15:29 | XMS_ITS ---
Author Organization [facility] Address [address] [place] [address] Care Team Providers Care Bulb Grader Name Role Phone Bisi Bolanos MD Primary Care Provider Vinicio Alexander [phone] Encounters Encounter Location Date Provider Diagnosis [facility] [address] [place] [address] 02/10/2024 Vinicio Keane Plan Of Treatment No Information Progress Notes * GEORGE IRVINDOB:[birth year] (78 yo F)Acc No.[id number]:02/10/2024 Patient:?GEORGE IRVIN :1945???Age:78 Y???Sex:Female Address:[address], [place], [address] * true * Date:? Generated for Sherley barboza/Rosa/eTransmitting on:?10/09/2024 03:29 PM EDT
--- OUTSIDE RECORDS SUMMARY | 2024-10-09 15:30 | XMS_ITS ---
Author Organization [facility] Address [address] [place] [address] Care Team Providers Care Stock Broker Supervisor Name Role Phone Bisi Bolanos MD Primary Care Provider Vinicio Alexander [phone] REASON FOR VISIT gerd,hx polyps,rectal bleeding Problems Problem Type SNOMED Code ICD Code Onset Dates Problem Status W/U Status Risk Notes Problem Diverticular disease of colon (932176101) Diverticulosis of large intestine without perforation or abscess without bleeding (K57.30) Active confirmed Problem Gastroesophageal reflux disease (566669912) Gastroesophageal reflux disease (K21.9) Active confirmed Encounters Encounter Location Date Provider Diagnosis [facility] Outpatient [address] [place] [phone] 08/29/2024 Vinicio Keane Colon cancer screeni ng [...] * GEORGE IRVIN JDOB:[birth year] (79 yo F)Acc No.[id number]:08/29/2024 EGD and COL/MAC Patient:GEORGE LEVINE Provider:?Vinicio Keane MD :1945???Age:79 Y???Sex:Female D ate:08/29/2024 Address:[address] [place], [place] [phone] Pcp:Bisi Bolanos MD Subjective: * Chief Complaints: * ???1. Gerd,hx polyps,rectal bleeding. * Medical History:? Objective: * Vitals:? Assessment: * Assessment: 1.?Colon cancer screening - Z12.11 (Primary)???2.?Colon polyps - K63.5???3.?Diverticulosis of large intestine without perforation or abscess without bleeding - K57.30???4.?Other hemorrhoids - K64.8???5.?Gastroesophageal reflux disease - K21.9???6.?Hiatal hernia - K44.9??? Plan: * Treatment: * Procedure Codes:?11916 COLON OSCOPY AND BIOPSY, Modifiers: PT , 0529F INTRVL 3+YRS PTS CLNSCP DOCD, Modifiers: 8P , 0528F RCMND FLW-UP 10 YRS DOCD, Modifiers: 1P , 66172 UPPR GI ENDOSCOPY, DIAGNOSIS * * The named appointment provid er may or may not be the originator of this progress note, and it is not deemed complete until electronically signed by the appointment provider. Sign off status: Pending * Provider:?Vinicio Keane MD Date:? 025 Generated for Sherley barboza/Rosa/eTransmitting on:?10/09/2024 03:29 PM EDT
== END 2024-10-09 12:50 | disposition home or self-care (01) ==
LOC: HO.US 12:49
PROVIDERS: PCP Internal Medicine; Visit Provider Urology
DX: N39.9 Disorder of urinary system, unspecified (principal); N39.0 Urinary tract infection, site not specified
CPT/HCPCS: 76775

== ENCOUNTER → 2024-10-09 12:51 | Outpatient (BNV) | payer MEDICARE, SELFPAY | PROVIDERS: PCP Internal Medicine; Visit Provider Radiology Diagnostic Radiology | DX: N39.0 Urinary tract infection, site not specified (principal) | CPT/HCPCS: 76775 ==

== ENCOUNTER 2024-10-26 10:03 | Outpatient (AMB) | payer MEDICARE, SELFPAY ==
--- OUTSIDE RECORDS SUMMARY | 2024-10-26 10:42 | XMS_ITS ---
Author Organization [facility] Address [address] [place] [address] Care Team Providers Care Roll Wrapper Name Role Phone Bisi Bolanos MD Primary Care Provider Vinicio Alexander [phone] Encounters Encounter Location Date Provider Diagnosis [facility] [address] [place] [address] 02/10/2024 Vinicio Keane Plan Of Treatment No Information Progress Notes * GEORGE IRVINDOB:[birth year] (78 yo F)Acc No.[id number]:02/10/2024 Patient:?GEORGE IRVIN :1945???Age:78 Y???Sex:Female Address:[address], [place], [address] * true * Date:? Generated for Sherley barboza/Rosa/eTransmitting on:?10/26/2024 10:42 AM EDT
--- OUTSIDE RECORDS SUMMARY | 2024-10-26 10:43 | XMS_ITS | Patient Health Record ---
Author Organization [facility] Address [address] [place] [address] Care Team Providers Care Garment Sewer Hand Name Role Phone Bisi Bolanos MD Primary Care Provider Vinicio Alexander Unavailable [phone] Allergies No Known Allergies Results Component Value Reference Range Notes Pathology (Not yet reviewed by provider) Interpretation: Performing Lab:[facility], [address] [place] [phone] Notes/Report: Name: Kell Hutchins Age/Sex: 79/F : 1945 Unit#: [id number] Attend Dr: Vinicio Keane MD Re08/29/24 Status : [facility] Location: [place] Disch: SPEC : [id number] RECD : 08/29/24 STATUS: CHUCK CHUNG NUM: [id number] VIET: 08/29/[address] [facility] [address]: Vinicio Keane MD ENTERED: 08/29/24 58 [...] exam ination, 1 piece in cassette [facility] CONTINUED ON NEXT PAGE Name: Kell Hutchins Age/Sex: 79/F : 1945 Unit#: [id number] Attend Dr: Vinicio Keane MD Re08/29/24 Status : [facility] Location: [place] Disch: SPEC : [id number] RECD: 08/29/24 STATUS: CHUCK CHUNG NUM: [id number] VIET: 08/29/[address] [facility] [address]: Vinicio Keane MD ENTERED: 08/29/24 56 SP TYPE: Surgical OTHR DR: Bisi Bolanos MD ORDERED: ANGUS Stain/9, Gross Micro L4/3 Copies To: Bisi Bolanos MD [facility] Primary Care, [place] [address] [place], [place] [id number] Vinicio Keane MD [address] [place], [place] [phone] Signed (si gnature on file) Joelle [place] 08/30/24 1147 END OF REPORT Reason For [...] 30 day(s) Active Fish Oil + D3 9823-5534 MG-UNIT 1 capsule Orally Three times a [...] Problem Status W/U Status Risk Notes Problem 501580140 Encounter for screening for malignant neoplasm of colon (Z12.11) Active confirmed Problem History of adenomatous polyp of colon (918318554) History of adenomatous polyp of colon (Z86.010) Active confirmed Problem Constipation (35528024) Constipation (K59.00) Active confirmed Problem Diverticular disease of colon (545407890) Diverticulosis of large intestine without perforation or abscess without bleeding (K57.30) Active confirmed Problem Gastroesophageal reflux disease (602867858) Gastroesophageal reflux disease (K21.9) Active confirmed Problem 433365758 Gastroesophageal reflux disease without esophagitis (K21.9) Active confirmed Problem 257584729 Gastroesophageal reflux disease, esophagitis presence not specified (K21.9) Active confirmed Problem Hiatal hernia (77419351) Hiatal hernia (K44.9) Active confirmed Problem Hemorrhage of rectum and anus (805032928) Rectal bleed (K62.5) Active confirmed Problem 75728942 Constipation, unspecified constipation type (K59.00) Active confirmed Problem Gastroesophageal reflux disease (510715771) GERD (gastroesophageal reflux disease) (K21.9) Active confirmed Problem Gastroesophageal reflux disease (510912305) Chronic GERD (K21.9) Active confirmed Vital Signs Temperature 97.1 degrees Fahrenheit 04/25/2024 Blood pressure diastolic 00 mm Hg 04/25/2024 Height 66.75 in 04/25/2024 Blood pressure systolic 000 mm Hg 04/25/2024 Weight 159 lb 6 oz lbs 04/25/2024 BMI 25.15 kg/m2 04/25/2024 Encounters Encounter Location Date Provider Diagnosis [facility] Outpatient [address] [place] [phone] 08/29/2024 Vinicio Keane Colon cancer screeni ng Z12.11 ; Colon polyps K63.5 ; Diverticulosis of large intestine without perforation or abscess without bleeding K57.30 ; Other hemorrhoids K64.8 ; Gastroesophageal reflux disease K21.9 and Hiatal hernia K44.9 [facility] [address] [place] [phone] 12/16/2023 Vinicio Keane Gastroesophageal ref lux disease, esophagitis presence not specified K21.9 ; Hiatal hernia K44.9 ; Constipation K59.00 and History of adenomatous polyp of colon Z86.010 [facility] [address] [place] [phone] 04/25/2024 Vinicio Keane Rectal bleed K62.5 ; Chronic GERD K21.9 and History of adenomatous polyp of colon Z86.010 [facility] [address] [place] [phone] 02/10/2024 Vinicio Keane Assessments Encounter Date Diagnosis [...] Date MEDICARE OF [place] [address] [place] [address] [id number] ALISIA HUTCHINS Self - patient is the insured [employer] ATT[employer] CLAIMS [address] [place] [address] [phone] [id number] ALISIA HUTCHINS Self - patient is the insured Medical (General) History Medical History History ICD Code Denies RI,DM,CVA,Lung disease,renal dise ase Breast cancer with chemo [...]
--- OUTSIDE RECORDS SUMMARY | 2024-10-26 10:43 | XMS_ITS ---
Author Organization [facility] Address [address] [place] [address] Care Team Providers Care Jazz Musician Name Role Phone Bisi Bolanos MD Primary Care Provider Vinicio Alexander Unavailable [phone] Allergies No Known Allergies REASON FOR VISIT [...] 30 day(s) Active Fish Oil + D3 2328-7531 MG-UNIT 1 capsule Orally Three times a [...] Notes Problem Hemorrhage of rectum and anus (676599576) Rectal bleed (K62.5) Active confirmed Problem Gastroesophageal reflux disease (570654573) Chronic GERD (K21.9) Active confirmed Vital Signs Temperature 97.1 degrees Fahrenheit 04/25/20 24 Blood pressure systolic 000 mm Hg 04/25/20 24 Blood pressure diastolic 00 mm Hg 024 Height 66.75 in 04/25/2024 Weight 159 lb 6 oz lbs 04/25/2024 BMI 25.15 kg/m2 04/25/2024 Encounters Encounter Location Date Provider Diagnosis [facility] [address] [facility] [address] [place] [address] 04/25/2024 Vinicio Keane Rectal bleed K62.5 ; [...] again for allowing me to participate in Goerge's care. I shall continue to keep you [...] * GEORGE IRVIN JDOB:[birth year] (78 yo F)Acc No.[id number]:04/25/2024 Progress Notes Patient:?GEORGE IRVIN Provider:?Vinicio Keane MD :1945???Age:78 Y???Sex:Female D ate:04/25/2024 Address:[address] [place] [address], [id number] Pcp:Bisi Bolanos MD Subjective: * Chief Complaints: [...] (0 point),?Points?0,?Interpretation?Negative.?Miscellaneous:?Marital status: . 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 ???Nonsmoker; no sig alcohol. [...] MOUTH EVERY MORNING Not-Taking/PRNFish Oil + D3 8400-5794 MG-UNIT Capsule 1 capsule Orally Three times a dayMedication List reviewed and reconciled with the patientNot-Taking/PRN Fish Oil + D3 8320-3844 MG-UNIT Capsule 1 capsule Orally Three times [...] am macmiralax * Procedure Codes:?1036F TOBAC CO NON-CIZAZ1594 BP SCR NOT PRFRM REC REASON NOS [...] MD Date:? 024 Generated for Sherley barboza/Rosa/Dominga on:?10/26/2024 10:42 AM EDT History and Physical Notes * HPI [...]
--- OUTSIDE RECORDS SUMMARY | 2024-10-26 10:43 | XMS_ITS ---
Author Organization [facility] Address [address] [place] [address] Care Team Providers Care Auto Transmission Technician Name Role Phone Bisi Bolanos MD Primary Care Provider Vinicio Alexander [phone] REASON FOR VISIT gerd,hx polyps,rectal bleeding Problems Problem Type SNOMED Code ICD Code Onset Dates Problem Status W/U Status Risk Notes Problem Diverticular disease of colon (844365714) Diverticulosis of large intestine without perforation or abscess without bleeding (K57.30) Active confirmed Problem Gastroesophageal reflux disease (973423481) Gastroesophageal reflux disease (K21.9) Active confirmed Encounters Encounter Location Date Provider Diagnosis [facility] Outpatient [address] [place] [phone] 08/29/2024 Vinicio Keane Colon cancer screeni ng [...] * GEORGE IRVIN JDOB:[birth year] (79 yo F)Acc No.[id number]:08/29/2024 EGD and COL/MAC Patient:GEORGE LEVINE Provider:?Vinicio Keane MD :1945???Age:79 Y???Sex:Female D ate:08/29/2024 Address:[address] [place], [place] [id number] Pcp:Bisi Bolanos MD Subjective: * Chief Complaints: * ???1. Gerd,hx polyps,rectal bleeding. * Medical History:? Objective: * Vitals:? Assessment: * Assessment: 1.?Colon cancer screening - Z12.11 (Primary)???2.?Colon polyps - K63.5???3.?Diverticulosis of large intestine without perforation or abscess without bleeding - K57.30???4.?Other hemorrhoids - K64.8???5.?Gastroesophageal reflux disease - K21.9???6.?Hiatal hernia - K44.9??? Plan: * Treatment: * Procedure Codes:?91291 COLON OSCOPY AND BIOPSY, Modifiers: PT , 0529F INTRVL 3+YRS PTS CLNSCP DOCD, Modifiers: 8P , 0528F RCMND FLW-UP 10 YRS DOCD, Modifiers: 1P , 20268 UPPR GI ENDOSCOPY, DIAGNOSIS * * The named appointment provid er may or may not be the originator of this progress note, and it is not deemed complete until electronically signed by the appointment provider. Sign off status: Pending * Provider:?Vinicio Keane MD Date:? 025 Generated for Sherley barboza/Rosa/eTransmitting on:?10/26/2024 10:43 AM EDT
--- NOTE | 2024-10-26 11:29 | A.OFFVIS_ITS ---
Intake Visit Reasons: 1y/US Intake Note: Patient presents to office today for a 1 year follow up/US Meds: Tamsulosin Allergies to Antibiotic: No Known Allergies Blood Thinner: None Technical Support Agent Required: No Accompanied by: Self / Same As Patient Allergies No Known Allergies Allergy (Verified 10/26/24 11:31) HPI Comments Details: 10/26/24--Alisia is a 77-year-old female who is here for evaluation due to kidney stone. The patient has a pmhx significant for polymyalgia rheumatica, HDL, breast cancer S/P chemo and radiation therapy with lumpectomy, GERD. Results: Reviewed renal ultrasound-10/09/2024-- kidneys are within normal limits. The patient has focused on diet modification she is drinking more water she has supplemental zinc with her diet she is watching the animal protein and the sodium in her diet. We have again had discussion regarding recommendations for low oxalate and adequate hydration I would like her to use an qaub-vmj-otrpynx vitamin B6 100 mg she denies any UTI symptoms at this time we will follow-up on a p.r.n. basis 10/28/23--Alisia is here for office cystoscopy. Cystoscopy findings: No suspicious lesions, bladder WNL. FU one year -Renal US prior 08/15/23--Alisia is a 77-year-old female who is here for evaluation due to kidney stone. The patient has a pmhx significant for polymyalgia rheumatica, HDL, breast cancer S/P chemo and radiation therapy with lumpectomy, GERD, she presented to the ED on 07/02/2023 with complaints of dysuria, urinary frequency/urgency, and blood-tinged urine, bilateral flank pain x1 day. Patient was diagnosed with a urinary tract infection approximately 3 weeks prior and completed a course of nitrofurantoin prescribed by urgent care with symptom resolution. A CT abdomen and pelvis without contrast was performed in the ED noting a 1 mm calcification Right UVJ, kidneys within normal limits, no hydronephrosis. She complains of persistent dysuria. Plan continue Flomax, urine culture, follow-up office cystoscopy. [facility] Medical History Carotid bruit Hyperglycemia Myalgia Postmenopausal Abnormal colonoscopy Plantar fasciitis Hyperlipidemia GERD (gastroesophageal reflux disease) History of breast cancer Surgical History History of esophagogastroduodenoscopy (EGD) H/O colonoscopy History of tonsillectomy History of lumpectomy of right breast Family History Father No problems noted. Mother Mental health disorder Brother Pancreatic cancer Brother No problems noted. Brother Substance use disorder Son No problems noted. Daughter No problems noted. Social History Housing: House Are you a primary career information specialist to a significant other at home: No Do you presently have visiting nurse or other home services: No Alcohol intake: current Alcohol intake frequency: holidays/special occasions only Patient Tobacco Use Status: Never used Tobacco e-Cigarette/Vaping Use: Never Used Advance Directives Date on File: 02/16/10 service: No Current occupational status: retired Cognitive needs: No Hearing needs: No Vision needs: Yes Review of Systems Const All systems reviewed & are unremarkable except as noted in HPI and below Reports no additional complaints Eyes Reports no additional complaints ENT Reports no additional complaints Card Reports no additional complaints Resp Reports no additional complaints GI Reports no additional complaints Reports as per HPI Musc Reports no additional complaints Skin/Breast Reports system reviewed and no additional complaints, except as documented Neuro Reports no additional complaints Psych Reports no additional complaints Endo Reports no additional complaints Peña/Lymph Reports no additional complaints Aller/Immun Reports no additional complaints Results AMB Urinalysis, Automated UA Leukoctes 0 Christie/uL Last Edit by Thao Howell on 10/26/24 14:16 UA Nitrite Negative Last Edit by Thao Howell on 10/26/24 14:16 UA Urobilinogen 0.2 mg/dL Last Edit by Thao Howell on 10/26/24 14:16 UA Protein 0 mg/dL Last Edit by Thao Howell on 10/26/24 14:16 UA pH 6.5 Last Edit by Thao Howell on 10/26/24 14:16 UA Blood 0 Joshua/uL Last Edit by Thao Howell on 10/26/24 14:16 UA Specific [place] 1.010 Last Edit by Thao Howell on 10/26/24 14:16 UA Ketone Negative Last Edit by Thao Howell on 10/26/24 14:16 UA Bilirubin 0 mg/dL Last Edit by Thao Howell on 10/26/24 14:16 UA Glucose 0 mg/dL Last Edit by Thao Howell on 10/26/24 14:16 Results Reviewed Results Reviewed: Date of Service: 10/09/24 US RENAL Comparison: US/SR - US RENAL BI - 05/17/22 15:30 EDT Findings: Right kidney is10.3 cm length. Left kidney is10.7 cm length. Normal renal cortical thickness and echotexture bilaterally. Pyelonephritis cannot be excluded sonographically. No hydronephrosis, shadowing calculus or cortical mass lesion. IMPRESSION: Unremarkable study. Date of Service: 07/02/23 EXAMINATION: CT ABDOMEN AND PELVIS WITHOUT CONTRAST CLINICAL INFORMATION: UTI with hematuria.. Evaluate for stones. COMPARISON: Ultrasound abdomen 05/17/2022. TECHNIQUE: Multidetector volumetric imaging was performed from the superior aspect of the liver through the pubic symphysis. Sagittal and coronal reformatted images were obtained on the technologist's workstation. This CT examination was performed using dose optimization techniques as appropriate, variously including the following: *Automated exposure control *Adjustment of mA and/or kV according to patient size (this includes techniques or standardized protocols for targeted exams where dose is matched to indication/reason for exam; i.e. extremities or head) *Use of iterative reconstruction technique DLP: 656 mGy-cm FINDINGS: LUNG BASES: The visualized lung bases are unremarkable. LIVER, GALLBLADDER, AND BILIARY TREE: The liver is normal in size, shape, and attenuation. No focal hepatic lesion or biliary ductal dilatation is present. The gallbladder is unremarkable with no evidence of radiopaque gallstones, gallbladder wall thickening, or obvious pericholecystic inflammatory changes. PANCREAS: Unremarkable. SPLEEN: Unremarkable. ADRENAL GLANDS: Unremarkable. KIDNEYS AND URETERS: The kidneys are normal in size, shape, and attenuation. No hydronephrosis, hydroureter, or calculi seen. No perinephric stranding. BLADDER: There is a 1 mm dependent radiopaque or hypodensity to the right of right UVJ on axial slice 68/3. This may be represent a stone just past. GASTROINTESTINAL TRACT: There is scattered stool and gas seen throughout the colon without distention. The small bowel loops are normal caliber. Appendix is normal caliber. The stomach is nondistended. No free air or free fluid. ABDOMINAL WALL: A small umbilical hernia containing fat is noted. LYMPH NODES: Normal. VASCULAR: Unremarkable. PELVIC VISCERA: The uterus is anteverted and appears unremarkable. No adnexal mass or free fluid seen. There is no abnormal pelvic or inguinal lymph nodes. OSSEOUS STRUCTURES: Mild degenerative disc changes L4-L5 disc level with endplate sclerosis. No aggressive lytic or sclerotic process seen. There is grade 1 anterolisthesis L3 over L4. IMPRESSION: 1 mm punctate hyper density along the dependent portion of right bladder lateral to the right UVJ. Question tiny stone versus calcification. There is no hydroureteronephrosis seen. Moderate constipation. Assessment & Plan Assessment & Plan Orders: Orders AMB Urinalysis Automated Today Z13.9 - Encounter for screening, unspecified Coding Level of Care Code Est Pt Level 3 (49420)
== END 2024-10-26 11:48 | disposition home or self-care (01) ==
LOC: HO.HUSH 10:04
PROVIDERS: PCP Internal Medicine; Visit Provider Urology
DX: Z13.9 Encounter for screening, unspecified (principal)

== ENCOUNTER → 2024-10-26 10:03 | Outpatient (BNVA) | payer MEDICARE, SELFPAY | PROVIDERS: PCP Internal Medicine; Visit Provider Urology | DX: Z87.442 Personal history of urinary calculi (principal); Z87.440 Personal history of urinary (tract) infections | CPT/HCPCS: 81003; 99212 ==

== ENCOUNTER 2025-03-20 07:21 | Outpatient (REF) | payer MEDICARE, SELFPAY ==
--- OUTSIDE RECORDS SUMMARY | 2024-08-29 03:30 | XMS_ITS ---
Author Organization [facility] Address [address] [place] [address] Care Team Providers Care Dramatic Art Teacher Name Role Phone Bisi Bolanos MD Primary Care Provider Vinicio Alexander [phone] REASON FOR VISIT gerd,hx polyps,rectal bleeding Problems Problem Type SNOMED Code ICD Code Onset Dates Problem Status W/U Status Risk Notes Problem Diverticular disease of colon (469333259) Diverticulosis of large intestine without perforation or abscess without bleeding (K57.30) Active confirmed Problem Gastroesophageal reflux disease (K21.9) Active confirmed Encounters Encounter Location Date Provider Diagnosis [facility] [place] [facility] [address] [place] [phone] 08/29/2024 Vinicio Keane Colon cancer screeni ng [...] * GEORGE IRVIN JDOB:[birth year] (79 yo F)Acc No.[id number]:08/29/2024 EGD and COL/MAC Patient: GEORGE ESCOBAR Provider: Jose Keane MD :1945 A ge:79 Y S ex:Female Date:08/29/2024 Address:[address] [place] [address], [facility] Pcp:Bisi Bolanos MD Subjective: * Chief Complaints: [...] FLW-UP 10 YRS DOCD, Modifiers: 1P , 01377 UPPR GI ENDOSCOPY, DIAGNOSIS * * The named appointment provid er may or may not be the originator of this progress note, and it is not deemed complete until electronically signed by the appointment provider. Sign off status: Pending * Provider: Jose Keane MD Date: 0 08/29/2024 Generated for Sherley barboza/Rosa/Carlossmitting on: 0 03/20/2025 07:24 AM EDT
--- OUTSIDE RECORDS SUMMARY | 2025-03-20 07:24 | XMS_ITS | Clinical Summary ---
Author Organization [facility] Address [address] [facility] [address] [place] [address] Phone Care Team Providers Care Wedding Planning Internship Name Role Phone Bisi Bolanos MD Primary Care Provider [phone] Allergies No known active allergies Medications predniSONE (DELTASONE) 10 MG tablet Take 10 mg by mouth daily with breakfast. Active predniSONE (DELTASONE) 2.5 MG tablet Take 2.5 mg by mouth daily with breakfast. Active omeprazole (PRILOSEC) 20 MG capsule Take 20 mg by mouth daily. Active cholecalciferol (VITAMIN D3) 2,000 unit capsule Take 1 Units by mouth daily. Active omega 6-scs-zrw-fish oil 1,000 mg (120 mg-180 mg) Cap Take 2 capsules by mouth daily. Active alendronate (FOSAMAX) 70 MG tablet Take 70 mg by mouth every 7 days. Take in the morning with a full glass of water, on an empty stomach, and do not take anything else by mouth or lie down for the next 30 min. Active Immunizations Immunization Administration Dates Next Due COVID-19 (Pre-05/09) Moderna Vaccine, mRNA, PF 0 11/13/2020 Social History Tobacco Use Types Packs/Day Years Used Date Smoking Tobacco: Never Smokeless Tobacco: Never Education Answer Date Recorded Are you interested in more education? Not on hannah e 11/12/2022 Are you concerned about learning? Not on file 11/12/2022 No 11/12/2022 No 11/12/2022 Digital Access Answer Date Recorded No 12/11/2022 No 12/11/2022 No 12/11/2022 Reliable internet access at home? Not on file 12/11/2022 Device with a working camera? Not on file Comments Unknown Sex and Gender Information Value Date Recorded Sex Assigned at Female 10/31/2020 9:47 AM EDT Legal Sex Female 10:06 PM EDT Gender Identity Female 10/31/2020 9:47 AM EDT Sexual Orientation Straight 10/31/2020 9: 47 AM EDT Last Filed Vital Signs Vital Sign Reading Time Taken Comments Blood Pressure 135/77 12/16/2020 4:03 PM EDT Pulse 65 12/16/2020 4:03 PM EDT Temperature 35.8 C (96.5 F) 12/16/2020 4:03 PM EDT Respiratory Rate - - Oxygen Saturation 100% 12/16/2020 4:03 PM EDT Inhaled Oxygen Concentration - - Weight 81.6 kg (180 lb) 12/16/2020 4:03 PM EDT Height 169.4 cm (5' 6.7 ) 12/16/2020 4:03 PM EDT Body Mass Index 28.45 12/16/2020 4:03 PM EDT Plan of Treatment Health Maintenance Due Date Last Done Comments Adult Td,Tdap Booster 1945 LIPID PANEL 1945 DEPRESSION SCREENING 1959 HEPATITIS C SCREENING 1965 SMOKING STATUS SCREENING (On ce After 26 Yrs) 1973 OSTEOPOROSIS SCREENING INITI AL (ONE-TIME) 2012 PNEUMOCOCCAL VACCINES (50+ years) (2 of 2 - PCV) 03/21/2020 03/21/2019, 12/17/2018 RSV VACCINE (1 - 1-dose 75+ series) 2022 INFLUENZA VACCINE (#1) 2025 , 03/21/2019, 05/02/2017 COVID-19 VACCINE (3 - 2024-2 6 season) 2025 12/11/2020, 11/13/2020 ZOSTER VACCINES Completed 03/13/2019, 12/17/2018 HEPATITIS A VACCINES Aged Out No long er eligible based on patient's age to complete this topic HIB VACCINES Aged Out No longer eligi ble based on patient's age to complete this topic MENINGOCOCCAL VACCINES (ACWY) Aged Out No longer eligible based on patient's age to complete this topic MENINGOCOCCAL VACCINES (B) Aged Out N o longer eligible based on patient's age to complete this topic Medical Devices Not on file Insurance MEDICARE PART A & B [employer] MEDEX SUPPLEMENT MEDICARE PART A & B [employer] SUPPLEMENT MEDICARE PART A & B [employer]EX SUPPLEMENT MEDICARE PART A & B [employer] MEDEX SUPPLEMENT MEDICARE PART A & B [employer] MEDEX SUPPLEMENT MEDICARE PART A & B [employer] MEDEX SUPPLEMENT MEDICARE PART A & B [employer] SUPPLEMENT MEDICARE PART A & B [employer] MEDEX SUPPLEMENT MEDICARE PART A & B [employer] MEDEX SUPPLEMENT Care Teams Wedding Planning Internship Relationship Specialty Start Date End Date Bisi Bolanos MD [address] [address] PCP - General Internal Medicine 10/31/20 Additional Source Comments The information contained in this document represents components of the legal health record. It is not the complete legal health record.[facility]
--- OUTSIDE RECORDS SUMMARY | 2025-03-20 07:24 | XMS_ITS | Patient Health Record ---
Author Organization [facility] Address [address] [place] [address] Care Team Providers Care Brand Ambassador Name Role Phone Bisi Bolanos MD Primary Care Provider Vinicio Alexander [phone] Allergies No Known Allergies Results Component Value Reference Range Notes Pathology (Not yet reviewed by provider) Interpretation: Performing Lab:[facility], [address] [place] [phone] Notes/Report: Reason For Referral No Information Medications Medication [...] 30 day(s) Active Fish Oil + D3 4365-6680 MG-UNIT 1 capsule Orally Three times a [...] Problem Status W/U Status Risk Notes Problem 880114684 Encounter for screening for malignant neoplasm of colon (Z12.11) Active confirmed Problem History of adenomatous polyp of colon (196997145) History of adenomatous polyp of colon (Z86.010) Active confirmed Problem Constipation (19351489) Constipation (K59.00) Active confirmed Problem Diverticular disease of colon (130873067) Diverticulosis of large intestine without perforation or abscess without bleeding (K57.30) Active confirmed Problem Gastroesophageal reflux disease (682668889) Gastroesophageal reflux disease (K21.9) Active confirmed Problem 051429234 Gastroesophageal reflux disease without esophagitis (K21.9) Active confirmed Problem 850169788 Gastroesophageal reflux disease, esophagitis presence not specified (K21.9) Active confirmed Problem Hiatal hernia (30863368) Hiatal hernia (K44.9) Active confirmed Problem Hemorrhage of rectum and anus (402561860) Rectal bleed (K62.5) Active confirmed Problem 74766250 Constipation, unspecified constipation type (K59.00) Active confirmed Problem Gastroesophageal reflux disease (119625233) GERD (gastroesophageal reflux disease) (K21.9) Active confirmed Problem Gastroesophageal reflux disease (999642583) Chronic GERD (K21.9) Active confirmed Vital Signs Temperature 97.1 degrees Fahrenheit 04/25/2024 Blood pressure diastolic 00 mm Hg 04/25/2024 Height 66.75 in 04/25/2024 Blood pressure systolic 000 mm Hg 04/25/2024 Weight 159 lb 6 oz lbs 04/25/2024 BMI 25.15 kg/m2 04/25/2024 Encounters Encounter Location Date Provider Diagnosis [facility] [place] Outpatient [address] [place] [id number] 08/29/2024 Vinicio Keane Colon cancer screeni ng Z12.11 ; Colon polyps K63.5 ; Diverticulosis of large intestine without perforation or abscess without bleeding K57.30 ; Other hemorrhoids K64.8 ; Gastroesophageal reflux disease K21.9 and Hiatal hernia K44.9 [facility] [address] [place] [address] 04/25/2024 Vinicio Keane Rectal bleed K62.5 ; Chronic GERD K21.9 and History of adenomatous polyp of colon Z86.010 Assessments Encounter Date Diagnosis (ICD Code) Assessment Notes Treatment Notes Treatment Clinical Notes Section Notes 08/29/2024 Colon cancer screening (ICD-10 - Z12.11) 08/29/2024 Colon polyps (ICD-10 - K63.5) 04/25/2024 Rectal bleed (ICD-10 - K62.5) Use [...] or abscess without bleeding (ICD-10 - K57.30) 04/25/2024 History of adenomatous polyp of colon [...] progress. 08/29/2024 Other hemorrhoids (ICD-10 - K64.8) 08/29/2024 [...] Date MEDICARE OF [place] [address] [place] [address] [id number] GEORGE IRVIN Self - patient is the insured MED[employer] ATTN CLAIMS [address] [place] [address] [phone] [id number] GEORGE IRVIN Self - patient is the insured Medical (General) History Medical History History ICD Code Denies CA,DM,CVA,Lung disease,renal dise ase Breast cancer with chemo [...] Breast lumpectomy on the right for radha masterson as above 1998 Tonsillectomy Benign breast lumpectomies
[2025-03-20 10:15] LABS: MANUAL DIFF FLAG NO
[2025-03-20 10:22] LABS: Hematocrit 43.5 % (37.0-47.0); Hemoglobin 14.7 g/dl (12.0-16.0); Imm Gran Abs Auto 0.03 X10*3/uL (0.00-0.03); Imm Gran Pct Auto 0.5 % (0.0-0.4); Lymphocytes Absolute Auto 1.8 X10*3/uL (1.2-4.9); Mean Corpuscular HGB Conc 33.8 g/dl (31.0-35.0); Mean Corpuscular Hemoglobin 29.7 pg (27.0-33.0); Mean Corpuscular Volume 87.9 fL (80.0-98.0); NRBC Abs Auto 0.000 X10*3/uL (0.0-0.012); NRBC Pct Auto 0.0 /100WBC (0.0-0.2); Platelet Count 268 X10*3/uL (160-400); Red Blood Count 4.95 X10*6/uL (4.20-5.50); White Blood Count 6.3 X10*3/uL (4.8-10.8)
[2025-03-20 10:44] LABS: Alanine Aminotransferase 21 U/L (0-31); Albumin Level 4.1 g/dL (3.5-5.0); Alkaline Phosphatase 71 U/L (39-117); Anion Gap 11 (12-20); Aspartate Amino Transferase 22 U/L (5-31); Blood Urea Nitrogen 15 mg/dL (9-16); Calcium 9.1 mg/dL (8.4-10.2); Carbon Dioxide 26 mmol/L (22-29); Chloride 106 mmol/L (96-108); Cholesterol 250 mg/dL (<200); Estimated Glomerular Filt Rate > 60; HDL Cholesterol 69 mg/dL (>40); Potassium 4.2 mmol/L (3.3-5.1); Sodium 139 mmol/L (135-145); Total Protein 6.7 g/dL (6.5-8.0); Triglycerides 80 mg/dL (<150)
== END 2025-03-20 07:22 | disposition home or self-care (01) ==
LOC: HO.HMGCLDS 07:21
PROVIDERS: PCP Internal Medicine; Visit Provider Internal Medicine
DX: Z00.00 Encounter for general adult medical examination without abnormal findings (principal); R73.9 Hyperglycemia, unspecified; E78.5 Hyperlipidemia, unspecified; E55.9 Vitamin D deficiency, unspecified
CPT/HCPCS: 36415; 80053; 80061; 82306; 84443; 85025

== ENCOUNTER 2025-04-01 08:51 | Outpatient (AMB) | payer MEDICARE, SELFPAY ==
--- OUTSIDE RECORDS SUMMARY | 2024-08-29 03:30 | XMS_ITS ---
Author Organization [facility] Address [address] [place] [address] Care Team Providers Care Veterinary Nurse Name Role Phone Bisi Bolanos MD Primary Care Provider Vinicio Alexander [phone] REASON FOR VISIT gerd,hx polyps,rectal bleeding Problems Problem Type SNOMED Code ICD Code Onset Dates Problem Status W/U Status Risk Notes Problem Diverticular disease of colon (145395315) Diverticulosis of large intestine without perforation or abscess without bleeding (K57.30) Active confirmed Problem Gastroesophageal reflux disease (054725657) Gastroesophageal reflux disease (K21.9) Active confirmed Encounters Encounter Location Date Provider Diagnosis [facility] [address] [place] [address] [id number] 08/29/2024 Vinicio Keane Colon cancer screeni ng Z12.11 ; Colon polyps K63.5 ; Diverticulosis of large intestine without perforation or abscess without bleeding K57.30 ; Other hemorrhoids K64.8 ; Gastroesophageal reflux disease K21.9 and Hiatal hernia K44.9 Assessments Encounter Date Diagnosis (ICD Code) Assessment Notes Treatment Notes Treatment Clinical Notes Section Notes 08/29/2024 Colon cancer screening (ICD-10 - Z12.11) 08/29/2024 Colon polyps (ICD-10 - K63.5) 08/29/2024 Diverticulosis of large intestine without perforation or abscess without bleeding (ICD-10 - K57.30) 08/29/2024 Other hemorrhoids (ICD-10 - K64.8) 08/29/2024 Gastroesophageal reflux disease (ICD-10 - K21.9) 08/29/2024 Hiatal hernia (ICD-10 - K44.9) Plan Of Treatment No Information Progress Notes * GEORGE IRVIN JDOB:[birth year] (79 yo F)Acc No.[id number]:08/29/2024 EGD and COL/MAC Patient: GEORGE ESCOBAR Provider: Jose Keane MD :1945 A ge:79 Y S ex:Female Date:08/29/2024 Address:[address] [place] [address], [facility] Pcp:Bisi Bolanos MD Subjective: * Chief Complaints: * 1 . Gerd,hx polyps,rectal bleeding. * Medical History: Objective: * Vitals: Assessment: * Assessment: 1. C olon cancer screening - Z12.11 (Primary) 2 . C olon polyps - K63.5? 3. D iverticulosis of large intestine without perforation or abscess without bleeding - K57.30 4 . O ther hemorrhoids - K64.8 5 . G astroesophageal reflux disease - K21.9 6 . H iatal hernia - K44.9 Plan: * Treatment: * Procedure Codes: 4 5380 COLONOSCOPY AND BIOPSY, Modifiers: PT , 0529F INTRVL 3+YRS PTS CLNSCP DOCD, Modifiers: 8P , 0528F RCMND FLW-UP 10 YRS DOCD, Modifiers: 1P , 00544 UPPR GI ENDOSCOPY, DIAGNOSIS * * The named appointment provid er may or may not be the originator of this progress note, and it is not deemed complete until electronically signed by the appointment provider. Sign off status: Pending * Provider: Jose Keane MD Date: 0 08/29/2024 Generated for Sherley barboza/Rosa/Lauraransmitting on: 0 04/01/2025 10:09 AM EDT
[2025-04-01 08:56] VITALS: BP 126/78; PULSE 67; RESP 18; TEMP 36.8; O2SAT 97; BMI 27.8
--- NOTE | 2025-04-01 08:56 | AM.OFFVISMDC ---
Intake Vital Signs 04/01/25 08:56 Height 5 ft 6 in Weight 172 lb BMI 27.8 BP 126/78 Blood Pressure Location Lt brachial Position Sitting Respiration 18 Pulse 67 Pulse Source Pulse Oximeter Temp 98.2 F Temp Source Oral Pulse Oximetry (%) 97 Oxygen Delivery Method Room Air Intake Visit Reasons: AWV Intake Note: Pt is here for AWV. Allergies No Known Allergies Allergy (Verified 04/01/25 08:59) Medication List - Last Reconciled 04/01/25 by Bisi Bolanos MD cat's claw bark 485 mg PO DAILY cholecalciferol (vitamin D3) 50 mcg PO DAILY meclizine 12.5 mg PO TID PRN multivitamin 1 tab PO DAILY omega 6-qpy-ndm-fish oil 300-1,000 mg (Fish Oil) 1 cap PO DAILY omeprazole 20 mg PO DAILY HPI AWV HPI Details Initiated the conversation about Advanced Directives. Advanced Directives help? patients prepare for current and future decisions about their medical treatment? and place of care. Discussed with patient that it is a process where a patients? current condition and prognosis are reviewed, their wishes for information? regarding their illness are elicited, and likely medical dilemmas are presented? and options discussed. The form can be amended as needed, reviewed yearly and? make changes as needed IPPE/AWV ? year old presents? for her ? Annual? Wellness Visit, initial visit.? Medical / Social History Reviewed? Past Medical History ?Yes? . ? [place]? of Care / Care Team list updated ?Yes . ? Surgical/Hospitalization? History ?Yes . ? Current Medications? (including OTC and supplements) ?Yes . ? Family History ?Yes? . ? Tobacco? Control form ?Yes . ? AUDIT-C (Alcohol use) form? ?Yes . ? Illicit drug use in Social? History ?Yes . ? Current diagnosis of? depression? ?No ? Appropriate PHQ2/PHQ9? completed ?Yes . ? Data entered by ?Medical? Pilot Boat Operator and reviewed by provider ? Fall Risk ? Fall? History? Have you had any falls with? injury in the past year? ?No . ? Have you had two or more? falls in the past year? ?No . ? Fall Risk Assessment: ?No? falls in the past year . ? HRA filled out by? the patient, reviewed by Provider and scanned. ? IPPE/AWV ? Balance? Romberg? ?Yes . ? Tandem? walk ?Yes . ? Walk and? Turn ?Yes . ? Rise from? sit to stand ?Yes . ?Vision? Corrective? lens ?Yes ? Vision? screen ? Up-to-date, has an appointment [] for vision? screening and glaucoma screening ?Hearing? Whisper? test ?pass .? Initiated the conversation about Advanced Directives. Advanced Directives help? patients prepare for current and future decisions about their medical treatment? and place of care. Discussed with patient that it is a process where a patients? current condition and prognosis are reviewed, their wishes for information? regarding their illness are elicited, and likely medical dilemmas are presented? and options discussed. The form can be amended as needed, reviewed yearly and? make changes as needed Written? Plan?Completed. See Patient? Documents. [facility] Medical History Carotid bruit Hyperglycemia Myalgia Postmenopausal Abnormal colonoscopy Plantar fasciitis Hyperlipidemia GERD (gastroesophageal reflux disease) History of breast cancer Surgical History History of esophagogastroduodenoscopy (EGD) H/O colonoscopy History of tonsillectomy History of lumpectomy of right breast Family History Father No problems noted. Mother Mental health disorder Brother Pancreatic cancer Brother No problems noted. Brother Substance use disorder Son No problems noted. Daughter No problems noted. Social History Housing: House Are you a primary career development manager to a significant other at home: No Do you presently have visiting nurse or other home services: No Alcohol intake: current Alcohol intake frequency: holidays/special occasions only Patient Tobacco Use Status: Never used Tobacco e-Cigarette/Vaping Use: Never Used Advance Directives Date on File: 02/16/10 service: No Current occupational status: retired Cognitive needs: No Hearing needs: No Vision needs: Yes Questionnaire Medicare Wellness Checkup [age] What gender do you identify with?: female During the past 4 weeks, how much have you been bothered by emotional problems such as feeling anxious, depressed, irritable, sad or downhearted, and blue?: not at all During the past 4 weeks, has your physical & emotional health limited your social activities with family, friends, neighbors, or groups?: not at all During the past 4 weeks, how much bodily pain have you generally had?: no pain During the past 4 weeks, was someone available to help you if you needed & wanted help?: yes, as much as I wanted During the past 4 weeks, what was the hardest physical activity you could do for at least 2 minutes?: very heavy Can you get to places out of walking distance without help? (For eg., can you travel alone on buses, taxis or drive your car?): Yes Can you go shopping for groceries or clothes without someone's help?: Yes Can you prepare your own meals?: Yes Can you do your housework without help?: Yes Because of any health problems, do you need the help of another person with your personal care needs such as eating, bathing, dressing or getting around the house?: No Can you handle your own money without help?: Yes During the past 4 weeks, how would you rate your health in general?: very good During the past 4 weeks how have things been going for you?: very well; could hardly better Are you having difficulties driving your car?: no Do you always fasten your seat belt when you are in a car?: yes, usually During past 4 weeks, have you been bothered by the following: never: Falling or dizzy when standing up, Sexual problems?, Trouble eating well?, Teeth or denture problems?, Problems using the telephone? and Tiredness or fatigue? Have you fallen 2 or more times in the past year?: No Are you afraid of falling?: No Are you a smoker?: no During the past 4 weeks, how many drinks of wine, beer, or other alcoholic beverages did you have?: 1 drink or less per week Do you exercise for about 20 minutes 3 or more times a week?: yes, most of the time Have you been given information to help with the following?: no: Hazards in your house that might hurt you? and no: Keeping track of your medications? How often do you have trouble taking medicines the way you have been told to take them?: I do not have to take medicine How confident are you that you can control & manage most of your health problems?: very confident What is your race?: White Mini Mental State Exam (MMSE) Orientation What is the (year) (season) (date) (day) (month)?: year, season, date, day and month Where are we (state) (county) (town or city) (hospital) (floor)?: state, county, town or city, hospital/clinic and floor Registration Name of 3 unrelated objects clearly and slowly, then ask patient to repeat all 3 of them. (1st repeat determines score. Make sure they can repeat all three): object 1, object 2 and object 3 Attention & Calculation (CHOOSE ONE) Spell WORLD backwards (DLROW): 5 letters Recall Ask patient to repeat the 3 items from question #3.: object 1, object 2 and object 3 Language Show patient a wristwatch & ask what it is. Repeat for pencil.: watch and pencil Ask the patient to repeat the phrase 'No ifs, ands, or buts' after you.: correct Ask the patient to 'take a piece of paper with their right hand' 'fold paper in half' 'place paper on floor': take paper in right hand, fold paper in half and place paper on floor Print the sentence 'CLOSE YOUR EYES' on a piece. If patient actually closes eyes then score.: followed written direction Give patient a blank piece of paper & ask to write a sentence. Score if it contains a noun & verb.: sentence contains subject and verb Score Score: 29 PHQ-9 Over the last 2 weeks, how often have you been bothered by any of the following problems? 1. Little interest or pleasure in doing things: not at all 2. Feeling down, depressed, or hopeless: not at all 3. Trouble falling or staying asleep, or sleeping too much: not at all 4. Feeling tired or having little energy: not at all 5. Poor appetite or overeating: not at all 6. Feeling bad about yourself - or that you are a failure or have let yourself or your family down: not at all 7. Trouble concentrating on things, such as reading the newspaper or watching television: not at all 8. Moving or speaking so slowly that other people could have noticed. Or the opposite - being so fidgety or restless that you have been moving around a lot more than usual: not at all 9. Thoughts that you would be better off or of hurting yourself in some way: not at all Total score: 0 Depression Screening Interpretation: Negative Depression Screening Done: Yes 36596 - PHQ-9 Billing: Yes Source: Developed by Drs. Vinicio Win, Sheryl Delaney, Sameer Russell and colleagues, with an educational janiya from [employer]. Review of Systems Const All systems reviewed & are unremarkable except as noted in HPI and below Eyes Reports no additional complaints ENT Reports no additional complaints Card Reports no additional complaints Resp Reports no additional complaints GI Reports no additional complaints Reports no additional complaints Physical Exam Vital Signs: Last Vital Signs Temp 98.2 F 04/01/25 08:56 Pulse 67 04/01/25 08:56 Resp 18 04/01/25 08:56 BP 126/78 04/01/25 08:56 Pulse Ox 97 04/01/25 08:56 Oxygen Delivery Method Room Air 04/01/25 08:56 BMI result Body Mass Index 27.8 Const General: no acute distress HEENT Head: Yes normal to inspection Ears: hearing grossly normal bilaterally Eyes General: appearance normal, both eyes and all related structures Neck Neck: Yes no lymphadenopathy and Yes supple Resp Effort & Inspection: normal respiratory effort Auscultation: clear to auscultation bilaterally Cardio Rhythm: regular rhythm Heart sounds: S1 normal heart sound present and S2 normal heart sound present GI Inspection: Yes normal to inspection Palpation (GI): Soft to palpation Percussion: Yes normal to percussion Auscultation: normal bowel sounds Extrem General: Yes no clubbing, cyanosis or edema Assessment & Plan Assessment & Plan (1) Annual physical exam: Code(s): Z00.00 - Encounter for general adult medical examination without abnormal findings Plan: Well-balanced diet regular physical activity discussed with the patient. For hyperlipidemia low-cholesterol diet discussed with the patient. She declined taking statin. For increasing hot flashes for the last few months patient was advised to stop taking cat's claw bark supplement because one of the side effects is be worsening hot flashes. Orders: Orders Lipid Panel 6 Months Z00.00 - Encounter for general adult medical examination without abnormal findings Quality Reporting (2019) Depression/Bipolar (159/160/161/177) PHQ-9: Total score: 0 Coding Level of Care Code Medicare Subsequent (G0439) Diagnoses Annual physical exam Z00.00 CPT Codes Advance Care Planning - Advance Care Planning discussion: On file, no changes ([id number]) Advance Care Planning - Time spent: 1-15 minutes, on File ([id number]) Additional Codes PHQ-9 - 84501 - PHQ-9 Billing: Yes ([id number]) Advance Care Planning Advance Care Planning discussion: On file, no changes Forms completed: Health Care Proxy Time spent: 1-15 minutes, on File Did not discuss due to Cultural/Spiritual beliefs: Yes
--- OUTSIDE RECORDS SUMMARY | 2025-04-01 10:09 | XMS_ITS | Clinical Summary ---
Author Organization [facility] Address [address] [place] [address] Phone Care Team Providers Care Steel Cutter Name Role Phone Bisi Bolanos MD Primary Care Provider [phone] Allergies No known active allergies Medications predniSONE (DELTASONE) 10 MG tablet Take 10 mg by mouth daily with breakfast. Active predniSONE (DELTASONE) 2.5 MG tablet Take 2.5 mg by mouth daily with breakfast. Active omeprazole (PRILOSEC) 20 MG capsule Take 20 mg by mouth daily. Active cholecalciferol (VITAMIN D3) 2,000 unit capsule Take 1 Units by mouth daily. Active omega 1-vex-xfj-fish oil 1,000 mg (120 mg-180 mg) Cap [...] file Insurance MEDICARE PART A & B [employer] SUPPLEMENT MEDICARE PART A & B [employer] SUPPLE[employer] MEDICARE PART A & B [employer] MED[employer] SUPPLEMENT MEDICARE PART A & B Kranem CROSS MEDEX SUPPLEMENT MEDICARE PART A & B [employer] MEDEX SUPPLEMENT MEDICARE PART A & B Kranem CROSS MEDEX SUPPLEMENT MEDICARE PART A & B [employer] SUPPLEMENT MEDICARE PART A & B [employer] SUPPLEMENT MEDICARE PART A & B [employer] SUPPLEMENT Care Teams Steel Cutter Relationship Specialty Start Date End Date Bisi Bolanos MD [address] [place] [address] PCP - General Internal Medicine 10/31/20 Additional Source Comments The information contained in this document represents components of the legal health record. It is not the complete legal health record.[facility]
--- OUTSIDE RECORDS SUMMARY | 2025-04-01 10:10 | XMS_ITS | Patient Health Record ---
Author Organization [facility] Address [address] [place] [address] Care Team Providers Care Ammonium Sulfate Operator Name Role Phone Bisi Bolanos MD Primary Care Provider Vinicio Alexander [phone] Allergies No Known Allergies Results Component Value Reference Range Notes Pathology (Not yet reviewed by provider) Interpretation: Performing Lab:[facility] [place], [address] [place] [phone] Notes/Report: Reason For Referral No Information Medications [...] 30 day(s) Active Fish Oil + D3 0280-1049 MG-UNIT 1 capsule Orally Three times a [...] Problem Status W/U Status Risk Notes Problem 745856651 Encounter for screening for malignant neoplasm of colon (Z12.11) Active confirmed Problem History of adenomatous polyp of colon (493758589) History of adenomatous polyp of colon (Z86.010) Active confirmed Problem Constipation (07962190) Constipation (K59.00) Active confirmed Problem Diverticular disease of colon (815438073) Diverticulosis of large intestine without perforation or abscess without bleeding (K57.30) Active confirmed Problem Gastroesophageal reflux disease (032075991) Gastroesophageal reflux disease (K21.9) Active confirmed Problem 736697761 Gastroesophageal reflux disease without esophagitis (K21.9) Active confirmed Problem 144761860 Gastroesophageal reflux disease, esophagitis presence not specified (K21.9) Active confirmed Problem Hiatal hernia (89870955) Hiatal hernia (K44.9) Active confirmed Problem Hemorrhage of rectum and anus (626205146) Rectal bleed (K62.5) Active confirmed Problem 91783446 Constipation, unspecified constipation type (K59.00) Active confirmed Problem Gastroesophageal reflux disease (332738163) GERD (gastroesophageal reflux disease) (K21.9) Active confirmed Problem Gastroesophageal reflux disease (894956099) Chronic GERD (K21.9) Active confirmed Vital Signs Temperature 97.1 degrees Fahrenheit 04/25/2024 Blood pressure diastolic 00 mm Hg 04/25/2024 Height 66.75 in 04/25/2024 Blood pressure systolic 000 mm Hg 04/25/2024 Weight 159 lb 6 oz lbs 04/25/2024 BMI 25.15 kg/m2 04/25/2024 Encounters Encounter Location Date Provider Diagnosis [facility] [place] Out[place] [address] [place] [id number] 08/29/2024 Vinicio Keane Colon cancer screeni ng Z12.11 ; Colon polyps K63.5 ; Diverticulosis of large intestine without perforation or abscess without bleeding K57.30 ; Other hemorrhoids K64.8 ; Gastroesophageal reflux disease K21.9 and Hiatal hernia K44.9 [facility] [address] [place] [address] 04/25/2024 Vinicio Keane Rectal bleed K62.5 ; [...] Date MEDICARE OF [place] [address] [place] [address] [id number] GEORGE IRVIN Self - patient is the insured MED[employer] ATTN CLAIMS [address] [place] [address] [id number] GEORGE IRVIN Self - patient is the insured Medical (General) History Medical History History ICD Code Denies ID,DM,CVA,Lung disease,renal dise ase Breast cancer with chemo [...]
== END 2025-04-01 10:16 | disposition home or self-care (01) ==
LOC: HO.HMCC 08:52
PROVIDERS: PCP Internal Medicine; Visit Provider Internal Medicine
DX: Z00.00 Encounter for general adult medical examination without abnormal findings (principal)

== ENCOUNTER → 2025-04-01 08:51 | Outpatient (BNVA) | payer MEDICARE, SELFPAY | PROVIDERS: PCP Internal Medicine; Visit Provider Internal Medicine | DX: Z00.00 Encounter for general adult medical examination without abnormal findings (principal); E78.5 Hyperlipidemia, unspecified; K21.9 Gastro-esophageal reflux disease without esophagitis; Z85.3 Personal history of malignant neoplasm of breast | CPT/HCPCS: 96127 ==